=== PATIENT | female | born 1955 | race Caucasian/White ===

== ENCOUNTER 2016-10-26 07:02 | Inpatient (IN) | payer MEDICAID ==
[2016-10-26] VITALS (15 sets, daily range): BP systolic 170–194; BP diastolic 74–92; PULSE 67–89; RESP 20; TEMP 97.9; Ht 160 cm; Wt 84.5 kg
[~2016-10-26] VITALS: Ht 160 cm; Wt 84.5 kg
[2016-10-26] MEDS ORDERED: ALBUTEROL 0.5% (NEB) 2.5 MG/0.5 ML AMP INH STA (07:22)
[2016-10-26] MEDS ORDERED: LEVOFLOXACIN 750MG/D5W (PMX) 150 ML IVPB STA (07:22)
[2016-10-26] MEDS ORDERED: IPRATROPIUM (NEB) 0.5 MG/2.5 ML AMP INH STA (07:22)
[2016-10-26 07:57] LABS: BASOPHILS % 0.2 % (0.0-2.0); EOSINOPHILS # 0.2 10^3/ul (0.0-0.5); EOSINOPHILS % 1.8 % (0.0-7.0); HEMATOCRIT 35.3 % (37.0-47.0); HEMOGLOBIN 11.5 g/dl (12.0-16.0); LYMPHOCYTES # 0.9 10^3/ul (0.8-2.9); MEAN CORPUSCULAR HEMOGLOBIN 30.2 pg (29.0-33.0); MEAN CORPUSCULAR HGB CONC 32.5 g/dl (32.0-37.0); MEAN CORPUSCULAR VOLUME 92.9 fl (82.0-101.0); MEAN PLATELET VOLUME 8.5 fl (7.4-10.4); MONOCYTE # 0.5 10^3/ul (0.3-0.9); MONOCYTES % 4.8 % (0.0-11.0); NEUTROPHIL # 9.6 10^3/ul (1.6-7.5); NEUTROPHILS % 85.2 % (39.0-77.0); PLATELET COUNT 214 10^3/UL (140-440); RED CELL DISTRIBUTION WIDTH 16.4 % (11.5-14.5); UNCORRECTED WBC 11.2 10^3/ul (4.8-10.8); WHITE BLOOD COUNT 11.2 10^3/ul (4.8-10.8)
--- NOTE | 2016-10-26 08:02 | RADRPT ---
PROCEDURE: XR Chest. CLINICAL INDICATION: Dyspnea TECHNIQUE: Single frontal chest x-ray. COMPARISON: None. FINDINGS: Cardiomegaly with mild increased vascular congestion is identified. Dense atelectasis is seen withi n the lung bases. Aortic atherosclerotic vascular calcifications are identified. There is no pneum othorax. The surrounding osseous structures are remarkable for benign chronic senescent changes. IMPRESSION: 1. Cardiomegaly with mild central vascular congestion. 2. Dense atelectasis within the lung bases. 3. Vascular calcifications consistent with atherosclerosis. RPTAT: PP .Washington Kelley MD, Date Time Electronically viewed and signed by .Washington Kelley MD, on 10/26/2016 08:01 .B/
[2016-10-26 08:09] LABS: CONDITION 1; LH ANALYZER COMMENTS 1
[2016-10-26 08:14] LABS: CHLORIDE 101 mmol/L (97-110); INR 1.01; POTASSIUM 5.6 mmol/L (3.5-5.1); PROTIME 13.3 Sec (12.2-14.2); SODIUM 144 mmol/L (135-144)
[2016-10-26 08:16] LABS: CREATININE 8.39 mg/dl (0.44-1.00); PARTIAL THROMBOPLASTIN TIME 33.9 Sec (25.0-35.0)
[2016-10-26 08:17] LABS: ALANINE AMINOTRANSFERASE 16 IU/L (13-69); ALBUMIN/GLOBULIN RATIO 1.17; ALKALINE PHOSPHATASE 83 IU/L (42-121); ANION GAP 24 (8-16); ASPARTATE AMINO TRANSFERASE 13 IU/L (15-46); BLOOD UREA NITROGEN 64 mg/dl (7-20); CARBON DIOXIDE 25 mmol/L (21-31); GLUCOSE 153 mg/dl (70-220); TOTAL PROTEIN 7.4 g/dl (6.1-8.1)
[2016-10-26 08:18] LABS: CALCIUM 7.4 mg/dl (8.4-10.2)
[2016-10-26 08:29] LABS: TROPONIN-I < 0.012 ng/ml (0.00-0.12)
[2016-10-26] MEDS ORDERED: FURO80TA3 PO (08:37)
[2016-10-26] MEDS ORDERED: AMLO5TAB4 PO (08:37)
[2016-10-26] MEDS ORDERED: ATEN50TA PO (08:38)
[2016-10-26] MEDS ORDERED: BENA40TA41 PO (08:39)
[2016-10-26] MEDS ORDERED: LOSA50TA6 PO (08:39)
[2016-10-26] MEDS ORDERED: TRAM-40 PO (08:39)
--- NOTE | 2016-10-26 08:46 | ERA ---
ER Documentation Chief Complaint Date/Time DATE: 10/26/16 TIME: 0710 Chief Complaint cough congestion no fever onset 2 days. bilat flank pain no dialysis today HPI 61-year-old female presents to the emergency department complaining of cough congestion. Patient states over the last 2 days she has been increasingly short of breath with a cough productive of sputum. She reports no hemoptysis. She had no chest pain. She then became increasingly dyspneic despite her usual dialysis routine. She reported no PND or orthopnea. She reported no palpitations or other cardiac symptoms. Upon arrival she expressed discomfort of an 8/10 which was nonspecific in nature. Patient states she has had a questionable fever associated with her symptoms. ROS All systems reviewed and are negative except as per history of present illness. Medications Home Meds Reported Medications Benazepril Hcl* (Benazepril Hcl*) 40 Mg Tablet, 40 MG PO DAILY, #30 TAB 10/26/16 Losartan Potassium* (Losartan Potassium*) 50 Mg Tablet, 50 MG PO DAILY, TAB 10/26/16 Tramadol Hcl* (Ultram*) 50 Mg Tablet, 50 MG PO BID Y for PAIN, TAB 10/26/16 Atenolol* (Atenolol*) 50 Mg Tablet, 50 MG PO BID, #60 TAB 10/26/16 Furosemide* (Furosemide*) 80 Mg Tablet, 80 MG PO BID, #60 TAB 10/26/16 Amlodipine Besylate* (Norvasc*) 5 Mg Tablet, 5 MG PO BID, TAB 10/26/16 Allergies Allergies: Coded Allergies: acetaminophen (Verified Allergy, Unknown, 10/26/16) FmHx Noncontributory for chief complaint Physical Exam Vitals Vital Signs Date Time Temp Pulse Resp B/P Pulse Ox O2 Delivery O2 Flow Rate FiO2 10/26/16 07:41 78 26 98 Nasal Cannula 4.0 10/26/16 07:15 Nasal Cannula 4 10/26/16 07:05 98.2 81 26 141/65 88 Physical Exam GENERAL: Patient is a plethoric elderly appearing female in mild distress HEENT: Pupils equal, round, and reactive to light. EOMI. There is no scleral icterus. NECK: C-spine is soft and supple, there is no meningismus. There is no cervical lymphadenopathy. No JVD LUNGS: Wheezes and occasional rales bilaterally. Increased work of breathing HEART: Regular rate and rhythm, no murmurs, clicks, rubs or gallops. ABDOMEN: Soft, non-tender, non-distended. There are bowel sounds in all four quadrants. No rebound or guarding. EXTREMITIES: There is no peripheral cyanosis or edema. No focal swelling or erythema. NEURO: The patient moves all four extremities with 5/5 strength. Cranial nerves II - XII are intact. Normal gait. Alert and oriented SKIN: There is no apparent rash or petechiae. Left upper extremity dialysis graft is noted without evidence of infection HEME/LYMPHATIC: There is no evidence of excessive bruising or lymphedema. PSYCHIATRIC: The patient does not appear anxious or depressed. Result Diagram: 10/26/16 0730 10/26/1630 Results 24 hrs Laboratory Tests Test 10/26/16 07:30 Activated Partial Thromboplast Time 33.9Sec Alanine Aminotransferase (ALT/SGPT) 16IU/L Albumin 4.0g/dl Albumin/Globulin Ratio 1.17 Alkaline Phosphatase 83IU/L Anion Gap 24 Aspartate Amino Transf (AST/SGOT) 13IU/L Basophils # 0.010^3/ul Basophils % 0.2% Blood Morphology Comment Blood Urea Nitrogen 64mg/dl Calcium Level 7.4mg/dl Carbon Dioxide Level 25mmol/L Chloride Level 101mmol/L Creatinine 8.39mg/dl Direct Bilirubin 0.00mg/dl Eosinophils # 0.210^3/ul Eosinophils % 1.8% Globulin 3.40g/dl Glucose Level 153mg/dl Hematocrit 35.3% Hemoglobin 11.5g/dl INR International Normalized Ratio 1.01 Indirect Bilirubin 0.0mg/dl Lactic Acid Level 1.0mmol/L Lymphocytes # 0.910^3/ul Lymphocytes % 8.0% Mean Corpuscular Hemoglobin 30.2pg Mean Corpuscular Hemoglobin Concent 32.5g/dl Mean Corpuscular Volume 92.9fl Mean Platelet Volume 8.5fl Monocytes # 0.510^3/ul Monocytes % 4.8% Neutrophils # 9.610^3/ul Neutrophils % 85.2% Nucleated Red Blood Cells # 0.010^3/ul Nucleated Red Blood Cells % 0.0/100WBC Platelet Count 87145^3/UL Potassium Level 5.6mmol/L Prothrombin Time 13.3Sec Prothrombin Time Ratio 1.0 Red Blood Count 3.8010^6/ul Red Cell Distribution Width 16.4% Sodium Level 144mmol/L Total Bilirubin 0.0mg/dl Total Protein 7.4g/dl Troponin I < 0.012ng/ml White Blood Count 11.210^3/ul Current Medications Medications (Trade) Dose Ordered Sig/Markos Route PRN Reason Start Time Stop Time Status Last Admin Dose Admin Albuterol (Proventil 0.5% (Neb)) 5 mg ONCE STAT INH 10/26/16 07:22 10/26/16 07:23 DC 10/26/16 07:40 Ipratropium [place] 0.5 mg 0.5 mg ONCE STAT INH 10/26/16 07:22 10/26/16 07:23 DC 10/26/16 07:40 Levofloxacin/ Dextrose (Levaquin 750 Mg/ D5W 150 ml (Pmx)) 150 ml @ 100 mls/hr ONCE STAT IVPB 10/26/16 07:22 10/26/16 08:51 10/26/16 07:48 Procedures/MDM Patient was taken to a room, seen and evaluated. Comfort measures were initiated. Patient's initial hypoxemia was noted and patient required nasal cannula oxygen to bring saturations up to the 90s. Work of breathing improved Diagnostic tests were ordered and reviewed. 3 LEAD RHYTHM STRIP: Normal sinus rhythm without ectopy EK lead EKG reviewed by myself: Normal Sinus Rhythm Normal [place] and intervals No ST elevation, depression, or T wave inversion Impression: Normal EKG RADIOLOGY: reviewed with the radiologist CONSULTATION: hospitalist was notified for admission REEVALUATION: With above intervention, patient's work of breathing improved and she seemed to be much more comfortable. She had no further hypoxemia. MEDICAL DECISION MAKING: Patient presents for shortness of breath. Differential diagnosis entertained included asthma, pneumonia, other cardiac and pulmonary concerns. After reviewing the patient's diagnostic tests and clinical presentation, patient appears to have a combination of pulmonary edema likely secondary to her renal failure what appears to be likely a bronchitis versus early pneumonia. At this time, patient has required antibiotics to cover for pneumonia and will require dialysis today. Fortunately, patient's potassium seems to be relatively well controlled and she has no EKG changes consistent with hyperkalemia. As per my conversations with the hospitalist, they will be obtaining nephrology consultation is appropriate. Patient is remained hemo-dynamically stable and is appropriate for inpatient bed at this time CRITICAL CARE: Time:>35 minutes Patient has a significant chance of clinical deterioration especially in light of her pulmonary concerns and hypoxemia Treatments/Evaluations: Close monitoring and treatment of unstable vital signs, respiratory status, likely concerns etc. Departure Diagnosis: Primary Impression: Hypoxemia Additional Impressions: Respiratory failure Pneumonia Renal failure ALEXA MANSFIELD Oct 26, 2016 08:46
[2016-10-26 08:53] LABS: AADO2 Arterial 81.1 mmHg (7.0-24.0); Allen Test ACCEPTAB; Arterial Base Excess -4.2 mmol/L (-3.0-3); Arterial COHb 0.7 % (0.0-3.0); Arterial Fraction of Oxyhgb 94.8 % (93.0-99.0); Arterial HCO3 22.8 mmol/L (22.0-26.0); Arterial MetHb 0.3 % (0.0-1.5); Arterial Total Hemglobin 11.5 g/dl (12.0-18.0); MODE NASAL CANNULA
[2016-10-26] MEDS ORDERED: DOCUSATE SODIUM 100 MG CAP PO PRN (10:30)
[2016-10-26] MEDS ORDERED: NACL 0.9% 3 ML SYG IV SCH (10:30)
[2016-10-26] MEDS ORDERED: morphine 2 MG INJ IV PRN (10:30)
[2016-10-26] MEDS ORDERED: hydrALAzine 20 MG INJ IV PRN (10:30)
[2016-10-26] MEDS ORDERED: VANCOMYCIN IV PER PHARMACY XX SCH (10:30)
[2016-10-26] MEDS ORDERED: HYDROCODONE/APAP (5/325) TAB PO PRN (10:30)
[2016-10-26] MEDS ORDERED: MAGNESIUM HYDROXIDE 30ML CUP PO PRN (10:30)
[2016-10-26] MEDS ORDERED: ACETAMINOPHEN 325 MG TAB PO PRN (10:30)
[2016-10-26] MEDS ORDERED: LORAZEPAM 2 MG INJ IV PRN (10:30)
[2016-10-26] MEDS ORDERED: ONDANSETRON 4 MG INJ IV PRN (10:30)
[2016-10-26] MEDS ORDERED: ALBUTEROL/IPRATROPIUM (NEB) 3 ML AMP HHN PRN (10:30)
[2016-10-26] MEDS ORDERED: NITROGLYCERIN (SL) 0.4 MG TAB SL PRN (10:30)
[2016-10-26] MEDS ORDERED: NA PHOSPHATE/BIPHOS 133 ML ENEMA PR PRN (10:30)
[2016-10-26] MEDS ORDERED: PIPERACILLIN IVPB SCH (12:00)
[2016-10-26] MEDS ORDERED: PIPER-TAZO 3.375 GM IV (PMX) 100 ML IVPB SCH (12:00)
[2016-10-26] MEDS ORDERED: TAZOBACTAM IVPB SCH (12:00)
[2016-10-26] MEDS: PIPER-TAZO 2.25 GM (PMX) 50 ML IVPB SCH ×2 (12:08→20:06)
--- NOTE | 2016-10-26 12:26 | PREOPHP ---
DATE OF ADMISSION: 10/26/2016 Thank you, Dr. Hogan, for asking me to participate in the medical management of this patient. REASON FOR CONSULTATION: End-stage renal disease. HISTORY OF PRESENT ILLNESS: This 61-year-old female was admitted to the emergency room because of 2 days of cough and shortness of breath. The patient says that she has been having increasing shortn ess of breath with a productive cough for 2 days. She denies any chest pain. The patient does have a history of asthma. She does have end-stage renal disease and has been on maintenance hemodialysi s for almost 2 years, having started in November 2014. She does have a left upper arm AV fistula which was created for dialysis. The patient is usually dialyzed Saturday, Saturday, Saturday and was last d ialyzed 2 days ago. Today being Saturday, she is due for dialysis. The patient has a long history of diabetes mellitus and I suspect has end-stage renal disease due to diabetic nephropathy. PAST MEDICAL HISTORY: Remarkable for CVA, hypertension, hyperlipidemia, diabetes mellitus, peripher al neuropathy. PAST SURGICAL HISTORY: Cataract extraction, left arm AV fistula, cholecystectomy, blood clot remove d from her left neck that was done in [place]. MEDICATIONS: Includes the followin. Amlodipine 5 mg twice a day. 2. Atenolol 50 mg twice a day. 3. Benazepril 40 mg a day. 4. Losartan 50 mg a day. 5. Tramadol 50 mg p.r.n. pain. 5. Furosemide 80 mg twice a day. ALLERGIES: SHE HAS AN ALLERGY TO ACETAMINOPHEN. PHYSICAL EXAMINATION: GENERAL: At this time reveals a well-developed female in no apparent distress. VITAL SIGNS: Temperature 97.9, pulse is 78, respirations 20, blood pressure 152/66, O2 saturation 9 9% on 4 liter nasal cannula. HEENT: Head normocephalic. EYES: Extraocular muscles intact. NOSE AND MOUTH: Normal. NECK: Supple. No neck vein distention. LUNGS: She has bilateral coarse expiratory wheezes. HEART: Regular rhythm. No murmurs, gallops or rubs. ABDOMEN: Soft, nontender, no masses or megaly. EXTREMITIES: No peripheral edema. She has a left upper arm AV fistula which has a good thrill and bruit. LABORATORY DATA: Done in the emergency room, sodium 144, potassium 5.6, chloride 101, CO2 of 25, BU N 64, creatinine 8.39, calcium 7.4. White blood count 11,200, hemoglobin 11.5, hematocrit 35.3. IMPRESSION: This patient presents now with a history of end-stage renal disease and is dialysis dep endent. She is due for her routine hemodialysis treatment today. She came in today to the emergenc y room with cough and shortness of breath. She probably has an acute bronchitis and/or acute exacer bation of her asthma. PLAN: 1. Order hemodialysis for today as soon as the patient is able to be transferred to a hospital room . 2. Resume routine medications. I will discontinue one of her angiotensin receptor blockers. 3. Monitor her chest x-ray for pulmonary vascular changes. 4. I will follow the patient along with you. Dictated By: WILVER DAVIES MD, ND/DENISE Conf#: [id number] DID#: [id number] CC: FRANCESCO HOGAN;*End*
--- NOTE | 2016-10-26 12:36 | RADRPT ---
Echocardiogram Report Patient Name: MAX CUEVAS Gender: Female Date: 1955 Study Date: 26-Oct-2016 Optical Glass Inspector: Diana Fitzpatrick RDCS Location: Ref. Physician: FRANCESCO HOGAN Quality: Technically Difficult Study Procedures: Transthoracic echocardiogram with complete 2D, M-Mode, and doppler examination. Indications: Shortness of breath. 2D/M Mode Doppler Measurement Value Normal Ranges Measurement Value Normal Ranges LVIDd 2D 5.3 3.5 - 5.6 cm AV Peak Reji 2.4 m/sec LVIDs 2D 2.7 2.1 - 4.1 cm AV Peak PG 23.1 mmHg LVPWd 2D 0.8 0.6 - 1.1 cm LVOT Peak Reji 1.1 m/sec IVSd 2D 0.9 0.6 - 1.1 cm LVOT Peak PG 5.3 mmHg AoR Diam 2D 2.3 2.0 - 3.7 cm MV E Peak Reji 1.3 m/sec EDV 2D 135.8 cm3 MV A Peak Reji 1.1 m/sec ESV 2D 19.0 cm3 MV E/A 1.1 LA Dimen 2D 4.3 2.3 - 4.0 cm MV Decel Time 191 msec MV Decel [place] 7 MV E/A 1.1 TR Peak Reji 2.7 m/sec TR Peak PG 28.7 mmHg RVSP 37.0 mmHg Findings Left Ventricle: Mild concentric left ventricular hypertrophy. Ejection fraction is visually estimated at 65 %. Tissue Doppler/Mitral Doppler indices are within normal limits. Right Ventricle: Normal right ventricular size. Normal right ventricular systolic function. Left Atrium: There is mild enlargement of left atrium. Right Atrium: There is mild enlargement of right atrium. Mitral Valve: Mitral valve leaflets appear mildly thickened. Moderate mitral annular calcification. Mild mitral valve regurgitation. Aortic Valve: Mild aortic stenosis. Aortic valve Max velocity 2.50 m/sec. Max PG 25.00 mmHg. Aortic cusps appear moderately calcified. Tricuspid Valve: Estimated peak PA systolic pressure 37 mmHg. There is mild tricuspid regurgitation. Pulmonic Valve: There is trace pulmonic regurgitation. Pericardium: Normal pericardium with no significant pericardial effusion. Aorta: Normal aortic root. IVC: Dilated IVC with respiratory collapse consistent with elevated right atrial pressure. Conclusions Mild concentric left ventricular hypertrophy. Ejection fraction is visually estimated at 65 %. Tissue Doppler/Mitral Doppler indices are within normal limits. Mild aortic stenosis. Aortic valve Max velocity 2.5 m/sec. Max PG 25 mmHg. Estimated peak PA systolic pressure 37 mmHg based on RA pressure of 8 mmHg. Electronically Signed By: Oscar Lorenzo 26-Oct-2016 12:34:57 -0800 Patient Name: MAX CUEVAS Study Date: 26-Oct-[id number]
[2016-10-26] MEDS ORDERED: VANCOMYCIN 1.5 GM in SOD CHLORIDE 0.9% 250 ML IVPB SCH (13:00)
[2016-10-26 14:58] LABS: AADO2 Arterial 137.8 mmHg (7.0-24.0); Allen Test ACCEPTAB; Arterial Base Excess -3.2 mmol/L (-3.0-3); Arterial COHb 0.3 % (0.0-3.0); Arterial Fraction of Oxyhgb 94.6 % (93.0-99.0); Arterial HCO3 23.9 mmol/L (22.0-26.0); Arterial MetHb 0.1 % (0.0-1.5); Arterial Total Hemglobin 11.9 g/dl (12.0-18.0); MODE HFNC
--- NOTE | 2016-10-26 15:59 | HP ---
DATE OF ADMISSION: 10/26/2016 CHIEF COMPLAINT: Shortness of breath. HISTORY OF PRESENT ILLNESS: A 61-year-old female with past medical history based on records of end- stage renal disease on dialysis, hypertension, type 2 diabetes, and asthma who came in with shortnes s of breath. She apparently receives dialysis every Saturday, Saturday, and Saturday and received dial ysis 2 days ago, on Saturday, and has been having shortness of breath for the last 2 days. Most of th e information was obtained from the ER documentation as the patient is presently somewhat lethargic and on high flow oxygen. Per records, she has been on dialysis for the last 2 years. She has a lef t upper arm AV fistula for access. The patient denied any homolysis. No chest pain, no orthopnea. No fevers or chills. When she came into the ER today, she was found with low oxygen saturation of 86% on room air and was given O2 supplementation. She also had an ABG performed that showed a pH of 7.27, pCO2 of 50.3, PaO2 of 95.5, and bicarbonate of 22.8. PAST MEDICAL HISTORY: As stated above. ALLERGIES: ACETAMINOPHEN. MEDICATIONS AT HOME: 1. Norvasc 5 mg b.i.d. 2. Atenolol 50 mg b.i.d. 3. Benazepril 40 mg daily. 4. Losartan 50 mg daily. 5. Ultram 50 mg b.i.d. p.r.n. 6. Lasix 80 mg b.i.d. PAST SURGICAL HISTORY: Again, AV fistula placement in the past. FAMILY HISTORY: Noncontributory. SOCIAL HISTORY: Unknown. PHYSICAL EXAMINATION: VITAL SIGNS: T-max 98.2, pulse 70 to 81, respirations 26, blood pressure 121/65, saturating at 88% to 98%, now on high flow oxygen. GENERAL: The patient appears slightly lethargic, opens eyes. HEENT: Pupils equal, round, react to light. Extraocular muscles intact. NECK: Supple, no thyromegaly. LUNGS: Decreased breath sounds, positive wheezes in bilateral bases. CARDIOVASCULAR: S1, S2 heard. No rubs, gallops. ABDOMEN: Soft, nontender, nondistended. Normal bowel sounds. No rebound or guarding. MUSCULOSKELETAL: No lower extremity edema bilaterally. NEUROLOGIC: No focal deficits. LABORATORIES: WBC 11.2, hemoglobin 11.5, hematocrit 35.3, platelets 214. Sodium 144, potassium 5.6 , chloride 101, CO2 of 25, BUN 64, creatinine 8.39, glucose 153. IMAGING: She had a chest x-ray that shows cardiomegaly with mild central vascular congestion, dense atelectasis at the lung bases. ASSESSMENT AND PLAN: A 61-year-old female who presents with hypoxia and shortness of breath, possib ly secondary to combination of pneumonia. 1. Shortness of breath. Again, chest x-ray shows pulmonary infiltrates. ABG shows some slight hyp ercapnic respiratory failure, so we will put her on BiPAP for now, check a TSH, A1c, and lipid panel as well, put her on broad spectrum antibiotics, and consider getting pulmonary consultation. The p atient may need a CT of the chest as well for further evaluation. 2. Essential hypertension. Blood pressure is stable. Continue home blood pressure medicines as we ll as hydralazine p.r.n. 3. End-stage renal disease on hemodialysis. We will get a renal consult. The patient may need efrain lysis today. Follow up their recommendations as well. 4. Type 2 diabetes. We will check an A1c. We will put her on sliding scale insulin as well. 5. GI prophylaxis. We will put her on PPI. 6. Deep venous thrombosis prophylaxis. Heparin subcutaneously. We will also get PT consult as javi gutierrez and OT consult. Dictated By: FRANCESCO JENSEN/DENISE Conf#: [id number] DID#: [id number]
[2016-10-26] MEDS: HEPARIN 5,000 UNIT/0.5 ML SYG SC SCH (21:00)
[2016-10-26] MEDS: FUROSEMIDE 40 MG TAB PO SCH (21:42)
[2016-10-26] MEDS: AMLODIPINE 5 MG TAB PO SCH (22:23)
[2016-10-26] MEDS: ATENOLOL 50 MG TAB PO SCH (22:23)
[2016-10-27] VITALS (13 sets, daily range): BP systolic 122–153; BP diastolic 60–98; PULSE 65–86; RESP 16–20
[2016-10-27] MEDS: PANTOPRAZOLE 40 MG INJ IV SCH (06:18)
[2016-10-27] MEDS: PIPER-TAZO 2.25 GM (PMX) 50 ML IVPB SCH ×2 (06:18→16:36)
[2016-10-27 07:23] LABS: CHOL/HDL RATIO 4.3 RATIO
[2016-10-27 07:34] LABS: BASOPHILS % 0.3 % (0.0-2.0); EOSINOPHILS # 0.1 10^3/ul (0.0-0.5); EOSINOPHILS % 1.2 % (0.0-7.0); HEMATOCRIT 34.2 % (37.0-47.0); HEMOGLOBIN 11.2 g/dl (12.0-16.0); LYMPHOCYTES # 1.1 10^3/ul (0.8-2.9); LYMPHOCYTES % 11.3 % (15.0-51.0); MEAN CORPUSCULAR HEMOGLOBIN 30.5 pg (29.0-33.0); MEAN CORPUSCULAR HGB CONC 32.9 g/dl (32.0-37.0); MEAN CORPUSCULAR VOLUME 92.8 fl (82.0-101.0); MEAN PLATELET VOLUME 8.7 fl (7.4-10.4); MONOCYTE # 0.5 10^3/ul (0.3-0.9); MONOCYTES % 4.9 % (0.0-11.0); NEUTROPHILS % 82.3 % (39.0-77.0); PLATELET COUNT 218 10^3/UL (140-440); RED BLOOD COUNT 3.68 10^6/ul (4.20-5.40); RED CELL DISTRIBUTION WIDTH 16.5 % (11.5-14.5); UNCORRECTED WBC 9.7 10^3/ul (4.8-10.8); WHITE BLOOD COUNT 9.7 10^3/ul (4.8-10.8)
[2016-10-27 07:38] LABS: CONDITION 1; LH ANALYZER COMMENTS 1
[2016-10-27 07:50] LABS: THYROID STIMULATING HORMONE 1.46 MIU/L (0.465-4.680)
[2016-10-27 08:54] LABS: CREATININE 5.29 mg/dl (0.44-1.00)
[2016-10-27 08:55] LABS: CALCIUM 8.3 mg/dl (8.4-10.2); MAGNESIUM 2.2 mg/dl (1.7-2.5); PHOSPHORUS 5.5 mg/dl (2.5-4.9)
[2016-10-27] MEDS ORDERED: LOSARTAN 50 MG TAB PO SCH (09:00)
[2016-10-27] MEDS: ATENOLOL 50 MG TAB PO SCH ×2 (09:28→20:58)
[2016-10-27] MEDS: AMLODIPINE 5 MG TAB PO SCH ×2 (09:28→20:59)
[2016-10-27] MEDS: BENAZEPRIL 40 MG TAB PO SCH (09:28)
[2016-10-27] MEDS: FUROSEMIDE 40 MG TAB PO SCH ×2 (09:29→20:58)
[2016-10-27] MEDS: HEPARIN 5,000 UNIT/0.5 ML SYG SC SCH ×2 (09:30→21:02)
--- NOTE | 2016-10-27 10:56 | CONS ---
Date/Time of Note Date/Time of Note DATE: 10/27/16 TIME: 10:54 Assessment/Plan Assessment/Plan Additional Assessment/Plan 1. CKD, no need for hd today, will eval for same tomm 2. Bronchitis and ? mild chf, improving 3. Sciatica right leg Consultation Date/Type/Reason Admit Date/Time Oct 26, 2016 at 08:46 Initial Consult Date Detailed Summary Respiratory: No shortness of breath Cardiovascular: No chest pain Gastrointestinal: no complaints Musculoskeletal: back pain (and right leg pain) Exam/Review of Systems Vital Signs Vitals Vital Signs Date Time Temp Pulse Resp B/P Pulse Ox O2 Delivery O2 Flow Rate FiO2 10/27/16 08:47 74 10/27/16 08:34 Nasal Cannula 4.0 10/27/16 05:00 98.5 16 153/98 95 10/26/16 21:28 40 Intake and Output 10/26/16 10/26/16 10/27/16 15:00 23:00 07:00 Intake Total 200 ml 300 ml 100 ml Output Total 3800 ml Balance 200 ml -3500 ml 100 ml Exam Neck: No jvd Respiratory: clear to auscultation Cardiovascular: regular rate and rhythm Gastrointestinal: soft Extremities: No edema (adn no calf tend) Results Result Diagram: 10/27/16 0639 10/27/16 0639 Results 24 hrs Laboratory Tests Test 10/26/16 14:12 10/27/16 06:39 Arterial Blood HCO3 23.9 Arterial Blood Base Excess -3.2 L Arterial Blood Oxygen Saturation 95.0 Umesh Test ACCEPTAB Arterial Blood Gas Puncture Site Right Radial Arterial Blood Carboxyhemoglobin 0.3 Arterial Blood Date Drawn 10/26/2016 2:45:14 PM Arterial Blood Methemoglobin 0.1 Arterial Blood pCO2 (Temp correct) 51.9 H Arterial Blood pH (Temp corrected) 7.281 *L Arterial Blood pO2 (Temp corrected) 87.7 Blood Gas A-a O2 Differential 137.8 H Blood Gas Critical Value Read Back DR ADHIKARI Blood Gas Modality NC Blood Gas Notified Time 10/26/2016 2:58:11 PM Blood Gas Notified Whom JLD Blood Gas Specimen Source Blood arterial Blood Gas Temperature 37.0 FiO2 40.0 Oxyhemoglobin Percent 94.6 Total Hemoglobin 11.9 L Anion Gap 23 H Basophils # 0.0 Basophils % 0.3 Blood Morphology Comment Blood Urea Nitrogen 36 #H Calcium Level 8.3 L Carbon Dioxide Level 26 Chloride Level 101 Cholesterol Level 131 Cholesterol/HDL Ratio 4.3 Creatinine 5.29 #H Eosinophils # 0.1 Eosinophils % 1.2 Glucose Level 120 HDL Cholesterol 30 L Hematocrit 34.2 L Hemoglobin 11.2 L Hemoglobin A1c 6.4 H LDL Cholesterol, Calculated 50 Lymphocytes # 1.1 Lymphocytes % 11.3 L Magnesium Level 2.2 Mean Corpuscular Hemoglobin 30.5 Mean Corpuscular Hemoglobin Concent 32.9 Mean Corpuscular Volume 92.8 Mean Platelet Volume 8.7 Monocytes # 0.5 Monocytes % 4.9 Neutrophils # 8.0 H Neutrophils % 82.3 H Nucleated Red Blood Cells # 0.0 Nucleated Red Blood Cells % 0.0 Phosphorus Level 5.5 H Platelet Count 218 Potassium Level 5.0 Red Blood Count 3.68 L Red Cell Distribution Width 16.5 H Sodium Level 145 H Thyroid Stimulating Hormone (TSH) 1.460 Triglycerides Level 257 H White Blood Count 9.7 Medications Medications Current Medications Ondansetron HCl (Zofran Inj) 4 mg Q6H PRN IV NAUSEA AND/OR VOMITING; Start at 10:30 Morphine Sulfate (morphine) 2 mg Q4H PRN IV SEVERE PAIN LEVEL 7-10; Start 10/26 at 10:30 Docusate Sodium (Colace) 100 mg Q12H PRN PO CONSTIPATION; Start 10/26/16 at 10: 30 Magnesium Hydroxide (Milk Of Mag) 30 ml Q24H PRN PO CONSTIPATION; Start at 10:30 Heparin Sodium (Porcine) (Heparin (5000 Units/0.5 ml)) 5,000 unit Q12 SC Last administered on 10/27/16 09:30; Admin Dose 5,000 UNIT; Start 10/26/16 at 21:00 Lorazepam (Ativan) 0.5 mg Q6H PRN IV ANXIETY Last administered on 10/26/16 12: 29; Admin Dose 0.5 MG; Start 10/26/16 at 10:30 Vancomycin HCl (Vanco Iv Per Pharmacy) VANCOMYCIN PER PHARMACY NOTE XX ; Start 10/26/16 at 10:30 Hydralazine HCl (Apresoline) 10 mg Q6H PRN IV ELEVATED BLOOD PRESSURE; Start at 10:30 Clonidine (Catapres) 0.1 mg Q6H PRN PO ELEVATED BLOOD PRESSURE; Start 10/26/16 at 10:30 Nitroglycerin (Nitroglycerin (Sl Tab) 0.4 Mg) 1 tab Q5M PRN SL ANGINA; Start at 10:30 Amlodipine Besylate (Norvasc) 5 mg BID PO Last administered on 10/27/16 09:28 ; Admin Dose 5 MG; Start 10/26/16 at 21:00 Atenolol (Tenormin) 50 mg BID PO Last administered on 10/27/16 09:28; Admin Dose 50 MG; Start 10/26/16 at 21:00 Benazepril HCl (Lotensin) 40 mg DAILY PO Last administered on 10/27/16 09:28; Admin Dose 40 MG; Start 10/27/16 at 09:00 Furosemide (Lasix) 80 mg BID PO Last administered on 10/27/16 09:29; Admin Dose 80 MG; Start 10/26/16 at 21:00 Tramadol HCl 50 mg 50 mg Q12H PRN PO PAIN; Start 10/26/16 at 10:30 Piperacillin Sod/ Tazobactam Sod (Zosyn 2.25gm/ 50ml (Pmx)) 50 ml @ 100 mls/hr Q8 IVPB Last administered on 10/27/16 06:18; Admin Dose 100 MLS/HR; Start at 12:00 Pantoprazole (Protonix Iv) 40 mg DAILY@06 IV Last administered on 10/27/16 06: 18; Admin Dose 40 MG; Start 10/27/16 at 06:00 Influenza Virus Vaccine (Fluzone) 0.5 ml ONCE ONCE IM* ; Start 10/31/16 at 09:00 ; Stop 10/31/16 at 09:01 FLORENCIA LUNA MD Oct 27, 2016 10:56
--- NOTE | 2016-10-27 11:24 | PN ---
Date/Time of Note Date/Time of Note DATE: 10/27/16 TIME: 11:20 Assessment/Plan VTE Prophylaxis VTE Prophylaxis Intervention: heparin Lines/Catheters IV Catheter Type (from [facility]): Saline Lock Urinary Cath still in place: No Assessment/Plan Chief Complaint/Hosp Course ASSESSMENT AND PLAN: 61-year-old female who presents with hypoxia and shortness of breath, possibly secondary to combination of pneumonia. 1. Shortness of breath - improved. Again, chest x-ray shows pulmonary infiltrates. Admitting ABG shows some slight hypercapnic respiratory failure - continue BiPAP prn - continue broad spectrum antibiotics, - f/u pulmonary consultation. The patient may need a CT of the chest as well for further evaluation. 2. Essential hypertension. Blood pressure is stable. - Continue home blood pressure medicines as well as hydralazine p.r.n. 3. End-stage renal disease on hemodialysis. - f/u renal consult rec's 4. Type 2 diabetes - f/u A1c, continue sliding scale insulin as well. 5. GI prophylaxis - PPI. 6. Deep venous thrombosis prophylaxis. Heparin subcutaneously. F/u PT consult as well and OT consult. Problems: Subjective 24 Hr Interval Summary Free Text/Dictation Less SOB now, seen by renal team today. Exam/Review of Systems Vital Signs Vitals Vital Signs Date Time Temp Pulse Resp B/P Pulse Ox O2 Delivery O2 Flow Rate FiO2 10/27/16 08:47 74 10/27/16 08:34 Nasal Cannula 4.0 10/27/16 05:00 98.5 16 153/98 95 10/26/16 21:28 40 Intake and Output 10/26/16 10/26/16 10/27/16 15:00 23:00 07:00 Intake Total 200 ml 300 ml 100 ml Output Total 3800 ml Balance 200 ml -3500 ml 100 ml Exam GENERAL: The patient appears more alert. HEENT: Pupils equal, round, react to light. Extraocular muscles intact. NECK: Supple, no thyromegaly. LUNGS: less decreased breath sounds, less wheezes in bilateral bases. CARDIOVASCULAR: S1, S2 heard. No rubs, gallops. ABDOMEN: Soft, nontender, nondistended. Normal bowel sounds. No rebound or guarding. MUSCULOSKELETAL: No lower extremity edema bilaterally. NEUROLOGIC: No focal deficits. Results Result Diagram: 10/27/1639 10/27/16638 Results 24 hrs Laboratory Tests Test 10/26/16 14:12 10/27/16 06:39 Arterial Blood HCO3 23.9 Arterial Blood Base Excess -3.2 L Arterial Blood Oxygen Saturation 95.0 Umesh Test ACCEPTAB Arterial Blood Gas Puncture Site Right Radial Arterial Blood Carboxyhemoglobin 0.3 Arterial Blood Date Drawn 10/26/2016 2:45:14 PM Arterial Blood Methemoglobin 0.1 Arterial Blood pCO2 (Temp correct) 51.9 H Arterial Blood pH (Temp corrected) 7.281 *L Arterial Blood pO2 (Temp corrected) 87.7 Blood Gas A-a O2 Differential 137.8 H Blood Gas Critical Value Read Back DR ADHIKARI Blood Gas Modality HFNC Blood Gas Notified Time 10/26/2016 2:58:11 PM Blood Gas Notified Whom JLD Blood Gas Specimen Source Blood arterial Blood Gas Temperature 37.0 FiO2 40.0 Oxyhemoglobin Percent 94.6 Total Hemoglobin 11.9 L Anion Gap 23 H Basophils # 0.0 Basophils % 0.3 Blood Morphology Comment Blood Urea Nitrogen 36 #H Calcium Level 8.3 L Carbon Dioxide Level 26 Chloride Level 101 Cholesterol Level 131 Cholesterol/HDL Ratio 4.3 Creatinine 5.29 #H Eosinophils # 0.1 Eosinophils % 1.2 Glucose Level 120 HDL Cholesterol 30 L Hematocrit 34.2 L Hemoglobin 11.2 L Hemoglobin A1c 6.4 H LDL Cholesterol, Calculated 50 Lymphocytes # 1.1 Lymphocytes % 11.3 L Magnesium Level 2.2 Mean Corpuscular Hemoglobin 30.5 Mean Corpuscular Hemoglobin Concent 32.9 Mean Corpuscular Volume 92.8 Mean Platelet Volume 8.7 Monocytes # 0.5 Monocytes % 4.9 Neutrophils # 8.0 H Neutrophils % 82.3 H Nucleated Red Blood Cells # 0.0 Nucleated Red Blood Cells % 0.0 Phosphorus Level 5.5 H Platelet Count 218 Potassium Level 5.0 Red Blood Count 3.68 L Red Cell Distribution Width 16.5 H Sodium Level 145 H Thyroid Stimulating Hormone (TSH) 1.460 Triglycerides Level 257 H White Blood Count 9.7 Medications Medications Current Medications Ondansetron HCl (Zofran Inj) 4 mg Q6H PRN IV NAUSEA AND/OR VOMITING; Start at 10:30 Morphine Sulfate (morphine) 2 mg Q4H PRN IV SEVERE PAIN LEVEL 7-10; Start 10/26 at 10:30 Docusate Sodium (Colace) 100 mg Q12H PRN PO CONSTIPATION; Start 10/26/16 at 10: 30 Magnesium Hydroxide (Milk Of Mag) 30 ml Q24H PRN PO CONSTIPATION; Start at 10:30 Heparin Sodium (Porcine) (Heparin (5000 Units/0.5 ml)) 5,000 unit Q12 SC Last administered on 10/27/16 09:30; Admin Dose 5,000 UNIT; Start 10/26/16 at 21:00 Lorazepam (Ativan) 0.5 mg Q6H PRN IV ANXIETY Last administered on 10/26/16 12: 29; Admin Dose 0.5 MG; Start 10/26/16 at 10:30 Vancomycin HCl (Vanco Iv Per Pharmacy) VANCOMYCIN PER PHARMACY NOTE XX ; Start 10/26/16 at 10:30 Hydralazine HCl (Apresoline) 10 mg Q6H PRN IV ELEVATED BLOOD PRESSURE; Start at 10:30 Clonidine (Catapres) 0.1 mg Q6H PRN PO ELEVATED BLOOD PRESSURE; Start 10/26/16 at 10:30 Nitroglycerin (Nitroglycerin (Sl Tab) 0.4 Mg) 1 tab Q5M PRN SL ANGINA; Start at 10:30 Amlodipine Besylate (Norvasc) 5 mg BID PO Last administered on 10/27/16 09:28 ; Admin Dose 5 MG; Start 10/26/16 at 21:00 Atenolol (Tenormin) 50 mg BID PO Last administered on 10/27/16 09:28; Admin Dose 50 MG; Start 10/26/16 at 21:00 Benazepril HCl (Lotensin) 40 mg DAILY PO Last administered on 10/27/16 09:28; Admin Dose 40 MG; Start 10/27/16 at 09:00 Furosemide (Lasix) 80 mg BID PO Last administered on 10/27/16 09:29; Admin Dose 80 MG; Start 10/26/16 at 21:00 Tramadol HCl 50 mg 50 mg Q12H PRN PO PAIN; Start 10/26/16 at 10:30 Piperacillin Sod/ Tazobactam Sod (Zosyn 2.25gm/ 50ml (Pmx)) 50 ml @ 100 mls/hr Q8 IVPB Last administered on 10/27/16t 06:18; Admin Dose 100 MLS/HR; Start at 12:00 Pantoprazole (Protonix Iv) 40 mg DAILY@06 IV Last administered on 10/27/16t 06: 18; Admin Dose 40 MG; Start 10/27/16 at 06:00 Influenza Virus Vaccine (Fluzone) 0.5 ml ONCE ONCE IM* ; Start 10/31/16 at 09:00 ; Stop 10/31/16 at 09:01 FRANCESCO HOGAN Oct 27, 2016 11:24
[2016-10-27] MEDS: traMADol 50 MG TAB PO PRN (16:47)
[2016-10-27] MEDS ORDERED: AZITHROMYCIN 500 MG in SOD CHLORIDE 0.9% 250 ML IVPB SCH (21:00)
[2016-10-27] MEDS: METHYLPREDNISOLONE 40 MG INJ IV SCH (21:04)
[2016-10-27] MEDS ORDERED: GUAIFENESIN/CODEINE 5ML CUP PO ONE (21:30)
[2016-10-28] VITALS (22 sets, daily range): BP systolic 115–157; BP diastolic 46–76; PULSE 57–79; RESP 18–20
[2016-10-28] MEDS: PANTOPRAZOLE 40 MG INJ IV SCH (05:50)
[2016-10-28] MEDS: METHYLPREDNISOLONE 40 MG INJ IV SCH ×3 (05:50→21:04)
[2016-10-28 07:49] LABS: BASOPHILS % 0.3 % (0.0-2.0); EOSINOPHILS % 0.1 % (0.0-7.0); HEMATOCRIT 33.7 % (37.0-47.0); HEMOGLOBIN 11.2 g/dl (12.0-16.0); LYMPHOCYTES # 0.6 10^3/ul (0.8-2.9); LYMPHOCYTES % 7.7 % (15.0-51.0); MEAN CORPUSCULAR HEMOGLOBIN 30.7 pg (29.0-33.0); MEAN CORPUSCULAR HGB CONC 33.2 g/dl (32.0-37.0); MEAN CORPUSCULAR VOLUME 92.3 fl (82.0-101.0); MEAN PLATELET VOLUME 8.8 fl (7.4-10.4); MONOCYTE # 0.1 10^3/ul (0.3-0.9); MONOCYTES % 1.4 % (0.0-11.0); NEUTROPHIL # 7.6 10^3/ul (1.6-7.5); NEUTROPHILS % 90.5 % (39.0-77.0); PLATELET COUNT 233 10^3/UL (140-440); RED BLOOD COUNT 3.65 10^6/ul (4.20-5.40); UNCORRECTED WBC 8.4 10^3/ul (4.8-10.8); WHITE BLOOD COUNT 8.4 10^3/ul (4.8-10.8)
[2016-10-28 08:00] LABS: CONDITION 1; LH ANALYZER COMMENTS 1
[2016-10-28 08:16] LABS: CREATININE 7.07 mg/dl (0.44-1.00)
[2016-10-28 08:17] LABS: CALCIUM 8.1 mg/dl (8.4-10.2)
[2016-10-28 08:27] LABS: POTASSIUM 6.1 mmol/L (3.5-5.1)
[2016-10-28] MEDS: ATENOLOL 50 MG TAB PO SCH ×2 (08:33→21:03)
[2016-10-28] MEDS: AMLODIPINE 5 MG TAB PO SCH ×2 (08:33→21:04)
[2016-10-28] MEDS: FUROSEMIDE 40 MG TAB PO SCH ×2 (08:33→21:04)
[2016-10-28] MEDS: BENAZEPRIL 40 MG TAB PO SCH (08:34)
[2016-10-28] MEDS: HEPARIN 5,000 UNIT/0.5 ML SYG SC SCH ×2 (08:52→21:16)
[2016-10-28 10:40] LABS: AADO2 Arterial 76.9 mmHg (7.0-24.0); Allen Test ACCEPTAB; Arterial Base Excess -2.2 mmol/L (-3.0-3); Arterial COHb 0.3 % (0.0-3.0); Arterial Fraction of Oxyhgb 94.1 % (93.0-99.0); Arterial HCO3 23.8 mmol/L (22.0-26.0); Arterial MetHb 0.2 % (0.0-1.5); Arterial Total Hemglobin 12.2 g/dl (12.0-18.0); MODE NASAL CANNULA
--- NOTE | 2016-10-28 10:44 | CONS ---
Date/Time of Note Date/Time of Note DATE: 10/28/16 TIME: 10:41 Assessment/Plan Assessment/Plan Additional Assessment/Plan 1. Bronchitis, rxd abx and bronchodilators 2. Cough and SOB, a component may be related to mild CHF, to have HD today 3. Elev K, kayexelate ordered and HD today Consultation Date/Type/Reason Admit Date/Time Oct 26, 2016 at 08:46 Detailed Summary Respiratory: cough (and congestion) Cardiovascular: No chest pain Gastrointestinal: pain (mild, poorly localized) Exam/Review of Systems Vital Signs Vitals Vital Signs Date Time Temp Pulse Resp B/P Pulse Ox O2 Delivery O2 Flow Rate FiO2 10/28/16 10:25 Nasal Cannula 4.0 10/28/16 08:07 63 10/28/16 07:53 98.1 18 132/58 94 10/26/16 21:28 40 Intake and Output 10/27/16 10/27/16 10/28/16 15:00 23:00 07:00 Intake Total 700 ml Balance 700 ml Exam Neck: No jvd Respiratory: other (few rhonchi and wheezes bilat) Cardiovascular: No regular rate and rhythm Gastrointestinal: tender (mild, not localized) Extremities: No edema Results Result Diagram: 10/28/16 0512 10/28/16 0512 Results 24 hrs Laboratory Tests Test 10/28/16 05:12 10/28/16 10:00 Anion Gap 26 H Basophils # 0.0 Basophils % 0.3 Blood Morphology Comment Blood Urea Nitrogen 54 H Calcium Level 8.1 L Carbon Dioxide Level 20 L Chloride Level 101 Creatinine 7.07 H Eosinophils # 0.0 Eosinophils % 0.1 Glucose Level 206 Hematocrit 33.7 L Hemoglobin 11.2 L Lymphocytes # 0.6 L Lymphocytes % 7.7 L Mean Corpuscular Hemoglobin 30.7 Mean Corpuscular Hemoglobin Concent 33.2 Mean Corpuscular Volume 92.3 Mean Platelet Volume 8.8 Monocytes # 0.1 L Monocytes % 1.4 Neutrophils # 7.6 H Neutrophils % 90.5 H Nucleated Red Blood Cells # 0.0 Nucleated Red Blood Cells % 0.0 Platelet Count 233 Potassium Level 6.1 *H Random Vancomycin Level 14.0 Red Blood Count 3.65 L Red Cell Distribution Width 16.0 H Sodium Level 141 White Blood Count 8.4 Arterial Blood HCO3 23.8 Arterial Blood Base Excess -2.2 Arterial Blood Oxygen Saturation 94.6 L Umesh Test ACCEPTAB Arterial Blood Gas Puncture Site Right Radial Arterial Blood Carboxyhemoglobin 0.3 Arterial Blood Date Drawn 10/28/2016 10:31:37 AM Arterial Blood Methemoglobin 0.2 Arterial Blood pCO2 (Temp correct) 45.7 H Arterial Blood pH (Temp corrected) 7.334 L Arterial Blood pO2 (Temp corrected) 83.3 Blood Gas A-a O2 Differential 76.9 H Blood Gas Modality NASAL CANNULA Blood Gas Notified Time 10/28/2016 10:40:29 AM Blood Gas Notified Whom ab Blood Gas Specimen Source Blood arterial Blood Gas Temperature 37.0 FiO2 30.0 Oxyhemoglobin Percent 94.1 Total Hemoglobin 12.2 Medications Medications Current Medications Ondansetron HCl (Zofran Inj) 4 mg Q6H PRN IV NAUSEA AND/OR VOMITING; Start at 10:30 Morphine Sulfate (morphine) 2 mg Q4H PRN IV SEVERE PAIN LEVEL 7-10; Start 10/26 at 10:30 Docusate Sodium (Colace) 100 mg Q12H PRN PO CONSTIPATION; Start 10/26/16 at 10: 30 Magnesium Hydroxide (Milk Of Mag) 30 ml Q24H PRN PO CONSTIPATION; Start at 10:30 Heparin Sodium (Porcine) (Heparin (5000 Units/0.5 ml)) 5,000 unit Q12 SC Last administered on 10/28/16 08:52; Admin Dose 5,000 UNIT; Start 10/26/16 at 21:00 Lorazepam (Ativan) 0.5 mg Q6H PRN IV ANXIETY Last administered on 10/26/16 12: 29; Admin Dose 0.5 MG; Start 10/26/16 at 10:30 Hydralazine HCl (Apresoline) 10 mg Q6H PRN IV ELEVATED BLOOD PRESSURE; Start at 10:30 Clonidine (Catapres) 0.1 mg Q6H PRN PO ELEVATED BLOOD PRESSURE; Start 10/26/16 at 10:30 Nitroglycerin (Nitroglycerin (Sl Tab) 0.4 Mg) 1 tab Q5M PRN SL ANGINA; Start at 10:30 Amlodipine Besylate (Norvasc) 5 mg BID PO Last administered on 10/28/16 08:33 ; Admin Dose 5 MG; Start 10/26/16 at 21:00 Atenolol (Tenormin) 50 mg BID PO Last administered on 10/28/16 08:33; Admin Dose 50 MG; Start 10/26/16 at 21:00 Benazepril HCl (Lotensin) 40 mg DAILY PO Last administered on 10/28/16 08:34; Admin Dose 40 MG; Start 10/27/16 at 09:00 Furosemide (Lasix) 80 mg BID PO Last administered on 10/28/16 08:33; Admin Dose 80 MG; Start 10/26/16 at 21:00 Tramadol HCl (Ultram) 50 mg Q12H PRN PO PAIN Last administered on 10/27/16 16: 47; Admin Dose 50 MG; Start 10/26/16 at 10:30 Pantoprazole (Protonix Iv) 40 mg DAILY@06 IV Last administered on 10/28/16 05: 50; Admin Dose 40 MG; Start 10/27/16 at 06:00 Influenza Virus Vaccine (Fluzone) 0.5 ml ONCE ONCE IM* ; Start 10/31/16 at 09:00 ; Stop 10/31/16 at 09:01 Methylprednisolone Sodium Succinate (Solu-Medrol) 40 mg Q8 IV Last administered on 10/28/16 05:50; Admin Dose 40 MG; Start 10/27/16 at 22:00 FLORENCIA LUNA MD Oct 28, 2016 10:44
--- NOTE | 2016-10-28 10:54 | PN ---
Date/Time of Note Date/Time of Note DATE: 10/28/16 TIME: 10:54 Assessment/Plan VTE Prophylaxis VTE Prophylaxis Intervention: heparin Lines/Catheters IV Catheter Type (from Nrs): Saline Lock Urinary Cath still in place: No Assessment/Plan Chief Complaint/Hosp Course ASSESSMENT AND PLAN: 61-year-old female who presents with hypoxia and shortness of breath, possibly secondary to combination of pneumonia + bronchitis. 1. Shortness of breath - improved. Again, chest x-ray shows pulmonary infiltrates - Suspect PNA possible bronchitis component/CHF?. Admitting ABG shows some slight hypercapnic respiratory failure - continue BiPAP prn, O2 supplementation - continue broad spectrum antibiotics - f/u pulmonary consultation. The patient may need a CT of the chest as well for further evaluation. 2. Essential hypertension. Blood pressure is stable. - Continue home blood pressure medicines as well as hydralazine p.r.n. 3. End-stage renal disease on hemodialysis. - f/u renal consult rec's, for HD today, Kayexalate as well for high K + today 4. Type 2 diabetes - f/u A1c, continue sliding scale insulin as well. 5. GI prophylaxis - PPI. 6. Deep venous thrombosis prophylaxis. Heparin subcutaneously. F/u PT consult as well and OT consult. Problems: Subjective 24 Hr Interval Summary Free Text/Dictation Seen by renal today, awaiting HD for today. Less SOB. Exam/Review of Systems Vital Signs Vitals Vital Signs Date Time Temp Pulse Resp B/P Pulse Ox O2 Delivery O2 Flow Rate FiO2 10/28/16 10:25 Nasal Cannula 4.0 10/28/16 08:07 63 10/28/16 07:53 98.1 18 132/58 94 10/26/16 21:28 40 Intake and Output 10/27/16 10/27/16 10/28/16 15:00 23:00 07:00 Intake Total 700 ml Balance 700 ml Exam GENERAL: The patient appears more alert. HEENT: Pupils equal, round, react to light. Extraocular muscles intact. NECK: Supple, no thyromegaly. LUNGS: less decreased breath sounds, less wheezes in bilateral bases. CARDIOVASCULAR: S1, S2 heard. No rubs, gallops. ABDOMEN: Soft, nontender, nondistended. Normal bowel sounds. No rebound or guarding. MUSCULOSKELETAL: No lower extremity edema bilaterally. NEUROLOGIC: No focal deficits. Results Result Diagram: 10/28/16 0512 10/28/16 0512 Results 24 hrs Laboratory Tests Test 10/28/16 05:12 10/28/16 10:00 Anion Gap 26 H Basophils # 0.0 Basophils % 0.3 Blood Morphology Comment Blood Urea Nitrogen 54 H Calcium Level 8.1 L Carbon Dioxide Level 20 L Chloride Level 101 Creatinine 7.07 H Eosinophils # 0.0 Eosinophils % 0.1 Glucose Level 206 Hematocrit 33.7 L Hemoglobin 11.2 L Lymphocytes # 0.6 L Lymphocytes % 7.7 L Mean Corpuscular Hemoglobin 30.7 Mean Corpuscular Hemoglobin Concent 33.2 Mean Corpuscular Volume 92.3 Mean Platelet Volume 8.8 Monocytes # 0.1 L Monocytes % 1.4 Neutrophils # 7.6 H Neutrophils % 90.5 H Nucleated Red Blood Cells # 0.0 Nucleated Red Blood Cells % 0.0 Platelet Count 233 Potassium Level 6.1 *H Random Vancomycin Level 14.0 Red Blood Count 3.65 L Red Cell Distribution Width 16.0 H Sodium Level 141 White Blood Count 8.4 Arterial Blood HCO3 23.8 Arterial Blood Base Excess -2.2 Arterial Blood Oxygen Saturation 94.6 L Umesh Test ACCEPTAB Arterial Blood Gas Puncture Site Right Radial Arterial Blood Carboxyhemoglobin 0.3 Arterial Blood Date Drawn 10/28/2016 10:31:37 AM Arterial Blood Methemoglobin 0.2 Arterial Blood pCO2 (Temp correct) 45.7 H Arterial Blood pH (Temp corrected) 7.334 L Arterial Blood pO2 (Temp corrected) 83.3 Blood Gas A-a O2 Differential 76.9 H Blood Gas Modality NASAL CANNULA Blood Gas Notified Time 10/28/2016 10:40:29 AM Blood Gas Notified Whom ab Blood Gas Specimen Source Blood arterial Blood Gas Temperature 37.0 FiO2 30.0 Oxyhemoglobin Percent 94.1 Total Hemoglobin 12.2 Medications Medications Current Medications Ondansetron HCl (Zofran Inj) 4 mg Q6H PRN IV NAUSEA AND/OR VOMITING; Start at 10:30 Morphine Sulfate (morphine) 2 mg Q4H PRN IV SEVERE PAIN LEVEL 7-10; Start 10/26 at 10:30 Docusate Sodium (Colace) 100 mg Q12H PRN PO CONSTIPATION; Start 10/26/16 at 10: 30 Magnesium Hydroxide (Milk Of Mag) 30 ml Q24H PRN PO CONSTIPATION; Start at 10:30 Heparin Sodium (Porcine) (Heparin (5000 Units/0.5 ml)) 5,000 unit Q12 SC Last administered on 10/28/16 08:52; Admin Dose 5,000 UNIT; Start 10/26/16 at 21:00 Lorazepam (Ativan) 0.5 mg Q6H PRN IV ANXIETY Last administered on 10/26/16 12: 29; Admin Dose 0.5 MG; Start 10/26/16 at 10:30 Hydralazine HCl (Apresoline) 10 mg Q6H PRN IV ELEVATED BLOOD PRESSURE; Start at 10:30 Clonidine (Catapres) 0.1 mg Q6H PRN PO ELEVATED BLOOD PRESSURE; Start 10/26/16 at 10:30 Nitroglycerin (Nitroglycerin (Sl Tab) 0.4 Mg) 1 tab Q5M PRN SL ANGINA; Start at 10:30 Amlodipine Besylate (Norvasc) 5 mg BID PO Last administered on 10/28/16 08:33 ; Admin Dose 5 MG; Start 10/26/16 at 21:00 Atenolol (Tenormin) 50 mg BID PO Last administered on 10/28/16 08:33; Admin Dose 50 MG; Start 10/26/16 at 21:00 Benazepril HCl (Lotensin) 40 mg DAILY PO Last administered on 10/28/16 08:34; Admin Dose 40 MG; Start 10/27/16 at 09:00 Furosemide (Lasix) 80 mg BID PO Last administered on 10/28/16 08:33; Admin Dose 80 MG; Start 10/26/16 at 21:00 Tramadol HCl (Ultram) 50 mg Q12H PRN PO PAIN Last administered on 10/27/16 16: 47; Admin Dose 50 MG; Start 10/26/16 at 10:30 Pantoprazole (Protonix Iv) 40 mg DAILY@06 IV Last administered on 10/28/16 05: 50; Admin Dose 40 MG; Start 10/27/16 at 06:00 Influenza Virus Vaccine (Fluzone) 0.5 ml ONCE ONCE IM* ; Start 10/31/16 at 09:00 ; Stop 10/31/16 at 09:01 Methylprednisolone Sodium Succinate (Solu-Medrol) 40 mg Q8 IV Last administered on 10/28/16t 05:50; Admin Dose 40 MG; Start 10/27/16 at 22:00 Sodium Polystyrene Sulfonate (Kayexalate) 30 gm ONCE ONCE PO ; Start 10/28/16 at 11:00; Stop 10/28/16 at 11:01 FRANCESCO HOGAN Oct 28, 2016 10:54
[2016-10-28] MEDS ORDERED: NA POLYST SULFON 15 GM/60 ML BTL PO ONE (11:00)
[2016-10-28] MEDS: GUAIFENESIN 20 MG/ML 5ML CUP PO PRN ×2 (13:37→19:39)
--- NOTE | 2016-10-28 13:49 | RADRPT ---
PROCEDURE: XR Chest. CLINICAL INDICATION: Respiratory distress, hypoxia, cough, shortness of breath. TECHNIQUE: AP view of the chest was performed. COMPARISON: October 26, 2016 FINDINGS: There is improved fluid status. Mild cardiomegaly and vascular congestion remains. No pneumothorax or pleural effusion. The osseous structures are intact. IMPRESSION: Improved fluid status. Mild cardiomegaly, vascular congestion vascular congestion remain. RPTAT: QQ. .Jessica Galloway MD, MD Date Time Electronically viewed and signed by .Jessica Galloway MD, MD on 10/28/2016 13:48 .F/
[2016-10-28] MEDS: CEPASTAT LOZENGE MT PRN ×2 (15:25→19:39)
--- NOTE | 2016-10-28 18:36 | CONS ---
DATE OF ADMISSION: 10/26/2016 DATE OF CONSULTATION: 10/27/2016 PRIMARY PHYSICIAN: Dr. Hogan. REASON FOR CONSULTATION: Shortness of breath. HISTORY OF PRESENT ILLNESS: Briefly, this is a 61-year-old female with history of end-stage renal d isease on dialysis, hypertension, diabetes, asthma who was admitted yesterday with increasing shortn ess of breath and cough. She was noted to have what appears to be in acute hypercapnic respiratory insufficiency, initially requiring BiPAP. She denies any sick contacts; however, has had some flu-l laura symptoms as of late. PAST MEDICAL HISTORY: As noted above. ALLERGIES: ACETAMINOPHEN. MEDICATIONS: Please see MAR. PAST SURGICAL HISTORY: AV fistula placement in the past. FAMILY HISTORY: Noncontributory. SOCIAL HISTORY: No alcohol, illicit drug use or tobacco. REVIEW OF SYSTEMS: As noted in the HPI. PHYSICAL EXAMINATION: GENERAL: An elderly female in mild respiratory distress with mild accessory muscle use. VITAL SIGNS: Temperature is 99.0, heart rate is 69, blood pressure is 130/60, oxygen saturation 98% on 4 liters nasal cannula. HEENT: Normocephalic, atraumatic. NECK: Supple, no thyromegaly. CARDIOVASCULAR: Regular rate and rhythm, S1 and S2. CHEST: There is diffuse bilateral wheezing and poor air entry bilaterally. ABDOMEN: Obese, nontender, no hepatosplenomegaly. EXTREMITIES: No cyanosis, clubbing or edema. LABORATORY DATA: BUN is 36, creatinine is 5.29. Coags are within normal limits. ABG: pH is 7.28, pCO2 of 52, pO2 of 88. Chest x-ray shows mild pulmonary venous congestion. Otherwise, no obvious infiltrates. IMPRESSION: 1. Shortness of breath with evidence of acute respiratory acidosis. In view of patient's clinical findings and exam, this is most consistent with an acute asthma exacerbation. Recommendations: Br onchodilators with DuoNeb q.4 hours and q.2 hours p.r.n. 2. Will initiate systemic corticosteroids with plans to taper. 3. Would de-escalate antibiotics. 4. Will recheck an ABG and use BiPAP as needed p.r.n. 5. Continuation of hemodialysis as per renal. Dictated By: LORNA ALVAREZ/DENISE Conf#: [id number] DID#: [id number] CC: CLAUDIA CARRASQUILLO MD; FRANCESCO HOGAN;*End*
--- NOTE | 2016-10-28 18:48 | CONS ---
Date/Time of Note Date/Time of Note DATE: 10/28/16 TIME: 18:46 Consult Date/Type/Reason Admit Date/Time Oct 26, 2016 at 08:46 Initial Consult Date Type of Consultation: Pulm Subjective Better today. Objective Vital Signs Date Time Temp Pulse Resp B/P Pulse Ox O2 Delivery O2 Flow Rate FiO2 10/28/16 16:57 69 10/28/16 16:45 14 10/28/16 15:30 98.2 119/56 95 10/28/16 13:43 3.0 10/28/16 10:25 Nasal Cannula 10/26/16 21:28 40 Intake and Output 10/27/16 10/27/16 10/28/16 15:00 23:00 07:00 Intake Total 700 ml Balance 700 ml HEENT: Normocephalic, atraumatic. NECK: Supple, no thyromegaly. CARDIOVASCULAR: Regular rate and rhythm, S1 and S2. CHEST: There is diffuse bilateral wheezing and poor air entry bilaterally. ABDOMEN: Obese, nontender, no hepatosplenomegaly. EXTREMITIES: No cyanosis, clubbing or edema. Results/Medications Result Diagram: 10/28/16 0512 10/28/16 0512 Results 24 hrs Laboratory Tests Test 10/28/16 05:12 10/28/16 10:00 Anion Gap 26 H Basophils # 0.0 Basophils % 0.3 Blood Morphology Comment Blood Urea Nitrogen 54 H Calcium Level 8.1 L Carbon Dioxide Level 20 L Chloride Level 101 Creatinine 7.07 H Eosinophils # 0.0 Eosinophils % 0.1 Glucose Level 206 Hematocrit 33.7 L Hemoglobin 11.2 L Lymphocytes # 0.6 L Lymphocytes % 7.7 L Mean Corpuscular Hemoglobin 30.7 Mean Corpuscular Hemoglobin Concent 33.2 Mean Corpuscular Volume 92.3 Mean Platelet Volume 8.8 Monocytes # 0.1 L Monocytes % 1.4 Neutrophils # 7.6 H Neutrophils % 90.5 H Nucleated Red Blood Cells # 0.0 Nucleated Red Blood Cells % 0.0 Platelet Count 233 Potassium Level 6.1 *H Random Vancomycin Level 14.0 Red Blood Count 3.65 L Red Cell Distribution Width 16.0 H Sodium Level 141 White Blood Count 8.4 Arterial Blood HCO3 23.8 Arterial Blood Base Excess -2.2 Arterial Blood Oxygen Saturation 94.6 L Umesh Test ACCEPTAB Arterial Blood Gas Puncture Site Right Radial Arterial Blood Carboxyhemoglobin 0.3 Arterial Blood Date Drawn 10/28/2016 10:31:37 AM Arterial Blood Methemoglobin 0.2 Arterial Blood pCO2 (Temp correct) 45.7 H Arterial Blood pH (Temp corrected) 7.334 L Arterial Blood pO2 (Temp corrected) 83.3 Blood Gas A-a O2 Differential 76.9 H Blood Gas Modality NASAL CANNULA Blood Gas Notified Time 10/28/2016 10:40:29 AM Blood Gas Notified Whom ab Blood Gas Specimen Source Blood arterial Blood Gas Temperature 37.0 FiO2 30.0 Oxyhemoglobin Percent 94.1 Total Hemoglobin 12.2 Medications Current Medications Ondansetron HCl (Zofran Inj) 4 mg Q6H PRN IV NAUSEA AND/OR VOMITING; Start at 10:30 Morphine Sulfate (morphine) 2 mg Q4H PRN IV SEVERE PAIN LEVEL 7-10; Start 10/26 at 10:30 Docusate Sodium (Colace) 100 mg Q12H PRN PO CONSTIPATION; Start 10/26/16 at 10: 30 Magnesium Hydroxide (Milk Of Mag) 30 ml Q24H PRN PO CONSTIPATION; Start at 10:30 Heparin Sodium (Porcine) (Heparin (5000 Units/0.5 ml)) 5,000 unit Q12 SC Last administered on 10/28/16 08:52; Admin Dose 5,000 UNIT; Start 10/26/16 at 21:00 Lorazepam (Ativan) 0.5 mg Q6H PRN IV ANXIETY Last administered on 10/26/16 12: 29; Admin Dose 0.5 MG; Start 10/26/16 at 10:30 Hydralazine HCl (Apresoline) 10 mg Q6H PRN IV ELEVATED BLOOD PRESSURE; Start at 10:30 Clonidine (Catapres) 0.1 mg Q6H PRN PO ELEVATED BLOOD PRESSURE; Start 10/26/16 at 10:30 Nitroglycerin (Nitroglycerin (Sl Tab) 0.4 Mg) 1 tab Q5M PRN SL ANGINA; Start at 10:30 Amlodipine Besylate (Norvasc) 5 mg BID PO Last administered on 10/28/16 08:33 ; Admin Dose 5 MG; Start 10/26/16 at 21:00 Atenolol (Tenormin) 50 mg BID PO Last administered on 10/28/16 08:33; Admin Dose 50 MG; Start 10/26/16 at 21:00 Benazepril HCl (Lotensin) 40 mg DAILY PO Last administered on 10/28/16 08:34; Admin Dose 40 MG; Start 10/27/16 at 09:00 Furosemide (Lasix) 80 mg BID PO Last administered on 10/28/16 08:33; Admin Dose 80 MG; Start 10/26/16 at 21:00 Tramadol HCl (Ultram) 50 mg Q12H PRN PO PAIN Last administered on 10/27/16 16: 47; Admin Dose 50 MG; Start 10/26/16 at 10:30 Pantoprazole (Protonix Iv) 40 mg DAILY@06 IV Last administered on 10/28/16 05: 50; Admin Dose 40 MG; Start 10/27/16 at 06:00 Influenza Virus Vaccine (Fluzone) 0.5 ml ONCE ONCE IM* ; Start 10/31/16 at 09:00 ; Stop 10/31/16 at 09:01 Methylprednisolone Sodium Succinate (Solu-Medrol) 40 mg Q8 IV Last administered on 10/28/16 13:38; Admin Dose 40 MG; Start 10/27/16 at 22:00 Guaifenesin (Robitussin Liquid Cup) 200 mg Q4H PRN PO COUGH Last administered on 10/28/16 13:37; Admin Dose 200 MG; Start 10/28/16 at 12:30 Phenol (Cepastat Lozenge) 1 lozenge Q1H PRN MT COUGH Last administered on 15:25; Admin Dose 1 LOZENGE; Start 10/28/16 at 12:30 Assessment/Plan Additional Assessment/Plan IMPRESSION: 1. Shortness of breath with evidence of acute respiratory acidosis. In view of patient's clinical findings and exam, this is most consistent with an acute asthma exacerbation. RECS: 1. Bronchodilators with DuoNeb q.4 hours and q.2 hours p.r.n. 2. CS taper 3. Would de-escalate antibiotics. 4. ABG improved. 5. HD as per renal LORNA CARRIZALES MD Oct 28, 2016 18:48
[2016-10-28] MEDS: ZOLPIDEM 5 MG TAB PO PRN (19:39)
[2016-10-29] VITALS (16 sets, daily range): BP systolic 119–185; BP diastolic 57–81; PULSE 61–75; RESP 18–19
[2016-10-29] MEDS: METHYLPREDNISOLONE 40 MG INJ IV SCH ×2 (04:47→14:20)
[2016-10-29] MEDS: PANTOPRAZOLE 40 MG INJ IV SCH (04:47)
[2016-10-29] MEDS: GUAIFENESIN 20 MG/ML 5ML CUP PO PRN ×4 (04:48→17:34)
[2016-10-29 07:32] LABS: HEMATOCRIT 33.5 % (37.0-47.0); HEMOGLOBIN 11.2 g/dl (12.0-16.0); LYMPHOCYTES # 0.6 10^3/ul (0.8-2.9); LYMPHOCYTES % 6.1 % (15.0-51.0); MEAN CORPUSCULAR HEMOGLOBIN 30.6 pg (29.0-33.0); MEAN CORPUSCULAR HGB CONC 33.5 g/dl (32.0-37.0); MEAN CORPUSCULAR VOLUME 91.4 fl (82.0-101.0); MEAN PLATELET VOLUME 8.8 fl (7.4-10.4); MONOCYTE # 0.3 10^3/ul (0.3-0.9); MONOCYTES % 2.4 % (0.0-11.0); NEUTROPHIL # 9.7 10^3/ul (1.6-7.5); NEUTROPHILS % 91.5 % (39.0-77.0); PLATELET COUNT 215 10^3/UL (140-440); RED BLOOD COUNT 3.67 10^6/ul (4.20-5.40); UNCORRECTED WBC 10.6 10^3/ul (4.8-10.8); WHITE BLOOD COUNT 10.6 10^3/ul (4.8-10.8)
[2016-10-29 07:35] LABS: CONDITION 1; LH ANALYZER COMMENTS 1
[2016-10-29 07:48] LABS: POTASSIUM 3.8 mmol/L (3.5-5.1)
[2016-10-29 07:51] LABS: CREATININE 5.72 mg/dl (0.44-1.00)
[2016-10-29 07:52] LABS: CALCIUM 7.5 mg/dl (8.4-10.2)
[2016-10-29] MEDS: FUROSEMIDE 40 MG TAB PO SCH ×2 (08:41→21:00)
[2016-10-29] MEDS: AMLODIPINE 5 MG TAB PO SCH ×2 (08:41→21:00)
[2016-10-29] MEDS: BENAZEPRIL 40 MG TAB PO SCH (08:41)
[2016-10-29] MEDS: ATENOLOL 50 MG TAB PO SCH ×2 (08:42→21:00)
[2016-10-29] MEDS: CEPASTAT LOZENGE MT PRN ×4 (08:42→17:34)
[2016-10-29] MEDS: HEPARIN 5,000 UNIT/0.5 ML SYG SC SCH ×2 (09:05→21:00)
--- NOTE | 2016-10-29 11:05 | CONS ---
Date/Time of Note Date/Time of Note DATE: 10/29/16 TIME: 11:03 Assessment/Plan Assessment/Plan Additional Assessment/Plan Assessment and recommendations; next 1. Patient admitted with asthma exacerbation with significant clinical improvement. 2. Persistent cough possibly indicative of underlying bronchitis. 3. End-stage renal disease on hemodialysis. 4. Mild CHF. 5. Hypertension. 6. DM. Add Zithromax orally 500 mg daily. Continue Solu-Medrol and other supportive care. Add long-acting insulin for better glycemic control. Consultation Date/Type/Reason Admit Date/Time Oct 26, 2016 at 08:46 Initial Consult Date Type of Consultation: Pulm 24 HR Interval Summary Free Text/Dictation Patient condition is improved. Patient denies any wheezing but complains of cough with very scant sputum production. Denies any chest pain, fever chills. General exam; middle aged woman currently in no distress. Several bouts of coughing were noted. Exam/Review of Systems Vital Signs Vitals Vital Signs Date Time Temp Pulse Resp B/P Pulse Ox O2 Delivery O2 Flow Rate FiO2 10/29/16 09:02 73 10/29/16 07:46 97.9 19 166/72 93 10/29/16 05:48 3.0 10/28/16 10:25 Nasal Cannula 10/26/16 21:28 40 Intake and Output 10/28/16 10/28/16 10/29/16 15:00 23:00 07:00 Intake Total 1100 ml 400 ml Output Total 3900 ml Balance -2800 ml 400 ml Exam H EENT examination; supple neck, no JVD. Pharynx is clear. No neck masses. No thyromegaly. Chest examination; diminished but clear breath sounds bilaterally no added sounds. S1-S2 audible, no murmurs. Regular rhythm. Abdomen examination; soft, nontender, bowel sounds audible. Extremity examination; no peripheral edema. There is an AV shunt in the left arm. 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 Results Result Diagram: 10/29/16 0632 10/29/16 0632 Results 24 hrs Laboratory Tests Test 10/29/16 06:32 Anion Gap 22 H Basophils # 0.0 Basophils % 0.0 Blood Morphology Comment Blood Urea Nitrogen 47 H Calcium Level 7.5 L Carbon Dioxide Level 29 Chloride Level 95 L Creatinine 5.72 H Eosinophils # 0.0 Eosinophils % 0.0 Glucose Level 293 H Hematocrit 33.5 L Hemoglobin 11.2 L Lymphocytes # 0.6 L Lymphocytes % 6.1 L Mean Corpuscular Hemoglobin 30.6 Mean Corpuscular Hemoglobin Concent 33.5 Mean Corpuscular Volume 91.4 Mean Platelet Volume 8.8 Monocytes # 0.3 Monocytes % 2.4 Neutrophils # 9.7 H Neutrophils % 91.5 H Nucleated Red Blood Cells # 0.0 Nucleated Red Blood Cells % 0.0 Platelet Count 215 Potassium Level 3.8 # Red Blood Count 3.67 L Red Cell Distribution Width 16.0 H Sodium Level 142 White Blood Count 10.6 # Medications Medications Current Medications Ondansetron HCl (Zofran Inj) 4 mg Q6H PRN IV NAUSEA AND/OR VOMITING; Start at 10:30 Morphine Sulfate (morphine) 2 mg Q4H PRN IV SEVERE PAIN LEVEL 7-10; Start 10/26 at 10:30 Docusate Sodium (Colace) 100 mg Q12H PRN PO CONSTIPATION; Start 10/26/16 at 10: 30 Magnesium Hydroxide (Milk Of Mag) 30 ml Q24H PRN PO CONSTIPATION; Start at 10:30 Heparin Sodium (Porcine) (Heparin (5000 Units/0.5 ml)) 5,000 unit Q12 SC Last administered on 10/29/16 09:05; Admin Dose 5,000 UNIT; Start 10/26/16 at 21:00 Lorazepam (Ativan) 0.5 mg Q6H PRN IV ANXIETY Last administered on 10/26/16 12: 29; Admin Dose 0.5 MG; Start 10/26/16 at 10:30 Hydralazine HCl (Apresoline) 10 mg Q6H PRN IV ELEVATED BLOOD PRESSURE; Start at 10:30 Clonidine (Catapres) 0.1 mg Q6H PRN PO ELEVATED BLOOD PRESSURE; Start 10/26/16 at 10:30 Nitroglycerin (Nitroglycerin (Sl Tab) 0.4 Mg) 1 tab Q5M PRN SL ANGINA; Start at 10:30 Amlodipine Besylate (Norvasc) 5 mg BID PO Last administered on 10/29/16 08:41 ; Admin Dose 5 MG; Start 10/26/16 at 21:00 Atenolol (Tenormin) 50 mg BID PO Last administered on 10/29/16 08:42; Admin Dose 50 MG; Start 10/26/16 at 21:00 Benazepril HCl (Lotensin) 40 mg DAILY PO Last administered on 10/29/16 08:41; Admin Dose 40 MG; Start 10/27/16 at 09:00 Furosemide (Lasix) 80 mg BID PO Last administered on 10/29/16 08:41; Admin Dose 80 MG; Start 10/26/16 at 21:00 Tramadol HCl (Ultram) 50 mg Q12H PRN PO PAIN Last administered on 10/27/16 16: 47; Admin Dose 50 MG; Start 10/26/16 at 10:30 Pantoprazole (Protonix Iv) 40 mg DAILY@06 IV Last administered on 10/29/16 04: 47; Admin Dose 40 MG; Start 10/27/16 at 06:00 Influenza Virus Vaccine (Fluzone) 0.5 ml ONCE ONCE IM* ; Start 10/31/16 at 09:00 ; Stop 10/31/16 at 09:01 Methylprednisolone Sodium Succinate (Solu-Medrol) 40 mg Q8 IV Last administered on 10/29/16 04:47; Admin Dose 40 MG; Start 10/27/16 at 22:00 Guaifenesin (Robitussin Liquid Cup) 200 mg Q4H PRN PO COUGH Last administered on 10/29/16 08:42; Admin Dose 200 MG; Start 10/28/16 at 12:30 Phenol (Cepastat Lozenge) 1 lozenge Q1H PRN MT COUGH Last administered on 08:42; Admin Dose 1 LOZENGE; Start 10/28/16 at 12:30 Zolpidem Tartrate (Ambien) 5 mg HS PRN PO INSOMNIA Last administered on 19:39; Admin Dose 5 MG; Start 10/28/16 at 19:30 Insulin Glargine (Lantus) 10 unit DAILY@20 SC ; Start 10/29/16 at 20:00; Status UNV Azithromycin (Zithromax) 500 mg DAILY PO ; Start 10/29/16 at 11:30 EVANGELIST NUGENT Oct 29, 2016 11:05
[2016-10-29] MEDS ORDERED: DEXTROSE 50% 50 ML SYRINGE IV PRN ×2 (11:30)
[2016-10-29] MEDS ORDERED: GLUCOSE GEL 15 GRAM TUBE PO PRN ×2 (11:30)
[2016-10-29] MEDS ORDERED: GLUCAGON 1 MG INJ IM PRN (11:30)
[2016-10-29] MEDS ORDERED: GLUCOSE GEL 15 GRAM TUBE BUCCAL PRN (11:30)
[2016-10-29] MEDS ORDERED: AZITHROMYCIN 250 MG TAB PO SCH (11:30)
--- NOTE | 2016-10-29 13:48 | CONS ---
Date/Time of Note Date/Time of Note DATE: 10/29/16 TIME: 13:43 Assessment/Plan Assessment/Plan Chief Complaint/Hosp Course 1. ESRD , she had a hemodialysis treatment yesterday for hyperkalemia 2. she is still having cough and wheezing , CXR shows continued mild CHF . will order 2 hours of DUF today . 3. bronchitis, she is on steroids 4. DM 5. HTN Problems: Consultation Date/Type/Reason Admit Date/Time Oct 26, 2016 at 08:46 Initial Consult Date Type of Consultation: Pulm 24 HR Interval Summary Free Text/Dictation she c/o cough and wheezing Exam/Review of Systems Vital Signs Vitals Vital Signs Date Time Temp Pulse Resp B/P Pulse Ox O2 Delivery O2 Flow Rate FiO2 10/29/16 12:59 70 185/81 10/29/16 11:22 98.0 19 92 10/29/16 11:02 Nasal Cannula 4.0 10/26/16 21:28 40 Intake and Output 10/28/16 10/28/16 10/29/16 15:00 23:00 07:00 Intake Total 1100 ml 400 ml Output Total 3900 ml Balance -2800 ml 400 ml Exam Constitutional: alert, oriented, well developed Psych: nl mood/affect, no complaints Respiratory: wheezing Cardiovascular: regular rate and rhythm Gastrointestinal: soft Musculoskeletal: nl extremities to inspection Results Result Diagram: 10/29/16 0632 10/29/16 0632 Results 24 hrs Laboratory Tests Test 10/29/16 06:32 Anion Gap 22 H Basophils # 0.0 Basophils % 0.0 Blood Morphology Comment Blood Urea Nitrogen 47 H Calcium Level 7.5 L Carbon Dioxide Level 29 Chloride Level 95 L Creatinine 5.72 H Eosinophils # 0.0 Eosinophils % 0.0 Glucose Level 293 H Hematocrit 33.5 L Hemoglobin 11.2 L Lymphocytes # 0.6 L Lymphocytes % 6.1 L Mean Corpuscular Hemoglobin 30.6 Mean Corpuscular Hemoglobin Concent 33.5 Mean Corpuscular Volume 91.4 Mean Platelet Volume 8.8 Monocytes # 0.3 Monocytes % 2.4 Neutrophils # 9.7 H Neutrophils % 91.5 H Nucleated Red Blood Cells # 0.0 Nucleated Red Blood Cells % 0.0 Platelet Count 215 Potassium Level 3.8 # Red Blood Count 3.67 L Red Cell Distribution Width 16.0 H Sodium Level 142 White Blood Count 10.6 # Medications Medications Current Medications Ondansetron HCl (Zofran Inj) 4 mg Q6H PRN IV NAUSEA AND/OR VOMITING; Start at 10:30 Morphine Sulfate (morphine) 2 mg Q4H PRN IV SEVERE PAIN LEVEL 7-10; Start 10/26 at 10:30 Docusate Sodium (Colace) 100 mg Q12H PRN PO CONSTIPATION; Start 10/26/16 at 10: 30 Magnesium Hydroxide (Milk Of Mag) 30 ml Q24H PRN PO CONSTIPATION; Start at 10:30 Heparin Sodium (Porcine) (Heparin (5000 Units/0.5 ml)) 5,000 unit Q12 SC Last administered on 10/29/16 09:05; Admin Dose 5,000 UNIT; Start 10/26/16 at 21:00 Lorazepam (Ativan) 0.5 mg Q6H PRN IV ANXIETY Last administered on 10/26/16 12: 29; Admin Dose 0.5 MG; Start 10/26/16 at 10:30 Hydralazine HCl (Apresoline) 10 mg Q6H PRN IV ELEVATED BLOOD PRESSURE Last administered on 10/29/16 12:59; Admin Dose 10 MG; Start 10/26/16 at 10:30 Clonidine (Catapres) 0.1 mg Q6H PRN PO ELEVATED BLOOD PRESSURE; Start 10/26/16 at 10:30 Nitroglycerin (Nitroglycerin (Sl Tab) 0.4 Mg) 1 tab Q5M PRN SL ANGINA; Start at 10:30 Amlodipine Besylate (Norvasc) 5 mg BID PO Last administered on 10/29/16 08:41 ; Admin Dose 5 MG; Start 10/26/16 at 21:00 Atenolol (Tenormin) 50 mg BID PO Last administered on 10/29/16 08:42; Admin Dose 50 MG; Start 10/26/16 at 21:00 Benazepril HCl (Lotensin) 40 mg DAILY PO Last administered on 10/29/16 08:41; Admin Dose 40 MG; Start 10/27/16 at 09:00 Furosemide (Lasix) 80 mg BID PO Last administered on 10/29/16 08:41; Admin Dose 80 MG; Start 10/26/16 at 21:00 Tramadol HCl (Ultram) 50 mg Q12H PRN PO PAIN Last administered on 10/27/16 16: 47; Admin Dose 50 MG; Start 10/26/16 at 10:30 Pantoprazole (Protonix Iv) 40 mg DAILY@06 IV Last administered on 10/29/16 04: 47; Admin Dose 40 MG; Start 10/27/16 at 06:00 Influenza Virus Vaccine (Fluzone) 0.5 ml ONCE ONCE IM* ; Start 10/31/16 at 09:00 ; Stop 10/31/16 at 09:01 Methylprednisolone Sodium Succinate (Solu-Medrol) 40 mg Q8 IV Last administered on 10/29/16 04:47; Admin Dose 40 MG; Start 10/27/16 at 22:00 Guaifenesin (Robitussin Liquid Cup) 200 mg Q4H PRN PO COUGH Last administered on 10/29/16 12:58; Admin Dose 200 MG; Start 10/28/16 at 12:30 Phenol (Cepastat Lozenge) 1 lozenge Q1H PRN MT COUGH Last administered on 12:58; Admin Dose 1 LOZENGE; Start 10/28/16 at 12:30 Zolpidem Tartrate (Ambien) 5 mg HS PRN PO INSOMNIA Last administered on 19:39; Admin Dose 5 MG; Start 10/28/16 at 19:30 Insulin Glargine (Lantus) 10 unit DAILY@20 SC ; Start 10/29/16 at 20:00 Azithromycin (Zithromax) 500 mg DAILY PO Last administered on 10/29/16 11:18; Admin Dose 500 MG; Start 10/29/16 at 11:30 Miscellaneous Information 1 ea NOTE XX ; Start 10/29/16 at 11:30 Glucose (Glutose) 15 gm Q15M PRN PO DECREASED GLUCOSE; Start 10/29/16 at 11:30 Glucose (Glutose) 22.5 gm Q15M PRN PO DECREASED GLUCOSE; Start 10/29/16 at 11: 30 Dextrose (D50w Syringe) 25 ml Q15M PRN IV DECREASED GLUCOSE; Start 10/29/16 at 11:30 Dextrose (D50w Syringe) 50 ml Q15M PRN IV DECREASED GLUCOSE; Start 10/29/16 at 11:30 Glucagon (Glucagen) 1 mg Q15M PRN IM DECREASED GLUCOSE; Start 10/29/16 at 11:30 Glucose (Glutose) 15 gm Q15M PRN BUCCAL DECREASED GLUCOSE; Start 10/29/16 at 11 :30 WILVER DAVIES MD Oct 29, 2016 13:48
--- NOTE | 2016-10-29 15:01 | PN ---
Date/Time of Note Date/Time of Note DATE: 10/29/16 TIME: 14:53 Assessment/Plan VTE Prophylaxis VTE Prophylaxis Intervention: heparin Lines/Catheters IV [facility] Urinary Cath still in place: No Assessment/Plan Assessment/Plan 61-year-old female who presents with hypoxia and shortness of breath, possibly secondary to combination of pneumonia + bronchitis. 1. CHF excerbation 2. Hypoxic / Hypercapnic respiratory failure : resolved on room air 3. Acute bronchitis 4. Essential hypertension. Blood pressure is stable. 5. End-stage renal disease on hemodialysis. 4. Type 2 diabetes - f/u A1c, continue sliding scale insulin as well. PLAN: continue in-house supportive care Increaseb bronchodilator therapy to RTC / add inhaled steroids IV abx / dialysis to help with diuresis GI prophylaxis - PPI. Deep venous thrombosis prophylaxis. Heparin subcutaneously. F/u PT consult as well and OT consult. Subjective 24 Hr Interval Summary Free Text/Dictation c/o cough No more SOB, feels much better except for persistent dry cough Exam/Review of Systems Vital Signs Vitals Vital Signs Date Time Temp Pulse Resp B/P Pulse Ox O2 Delivery O2 Flow Rate FiO2 10/29/16 12:59 70 185/81 10/29/16 11:22 98.0 19 92 10/29/16 11:02 Nasal Cannula 4.0 10/26/16 21:28 40 Intake and Output 10/28/16 10/28/16 10/29/16 15:00 23:00 07:00 Intake Total 1100 ml 400 ml Output Total 3900 ml Balance -2800 ml 400 ml Exam Head: normocephalic Eyes: PERRL ENMT: mucosa pink and moist Neck: non-tender, supple, No jvd Respiratory: clear to auscultation, diminished breath sounds Cardiovascular: regular rate and rhythm, No murmurs/extra sounds Gastrointestinal: bowel sounds, non-tender, soft Extremities: No edema Neurological: nl mental status, nl speech, No focal weakness Results Result Diagram: 10/29/16 0632 10/29/16 0632 Results 24 hrs Laboratory Tests Test 10/29/16 06:32 Anion Gap 22 H Basophils # 0.0 Basophils % 0.0 Blood Morphology Comment Blood Urea Nitrogen 47 H Calcium Level 7.5 L Carbon Dioxide Level 29 Chloride Level 95 L Creatinine 5.72 H Eosinophils # 0.0 Eosinophils % 0.0 Glucose Level 293 H Hematocrit 33.5 L Hemoglobin 11.2 L Lymphocytes # 0.6 L Lymphocytes % 6.1 L Mean Corpuscular Hemoglobin 30.6 Mean Corpuscular Hemoglobin Concent 33.5 Mean Corpuscular Volume 91.4 Mean Platelet Volume 8.8 Monocytes # 0.3 Monocytes % 2.4 Neutrophils # 9.7 H Neutrophils % 91.5 H Nucleated Red Blood Cells # 0.0 Nucleated Red Blood Cells % 0.0 Platelet Count 215 Potassium Level 3.8 # Red Blood Count 3.67 L Red Cell Distribution Width 16.0 H Sodium Level 142 White Blood Count 10.6 # Medications Medications Current Medications Ondansetron HCl (Zofran Inj) 4 mg Q6H PRN IV NAUSEA AND/OR VOMITING; Start at 10:30 Morphine Sulfate (morphine) 2 mg Q4H PRN IV SEVERE PAIN LEVEL 7-10; Start 10/26 at 10:30 Docusate Sodium (Colace) 100 mg Q12H PRN PO CONSTIPATION; Start 10/26/16 at 10: 30 Magnesium Hydroxide (Milk Of Mag) 30 ml Q24H PRN PO CONSTIPATION; Start at 10:30 Heparin Sodium (Porcine) (Heparin (5000 Units/0.5 ml)) 5,000 unit Q12 SC Last administered on 10/29/16 09:05; Admin Dose 5,000 UNIT; Start 10/26/16 at 21:00 Lorazepam (Ativan) 0.5 mg Q6H PRN IV ANXIETY Last administered on 10/26/16 12: 29; Admin Dose 0.5 MG; Start 10/26/16 at 10:30 Hydralazine HCl (Apresoline) 10 mg Q6H PRN IV ELEVATED BLOOD PRESSURE Last administered on 10/29/16 12:59; Admin Dose 10 MG; Start 10/26/16 at 10:30 Clonidine (Catapres) 0.1 mg Q6H PRN PO ELEVATED BLOOD PRESSURE; Start 10/26/16 at 10:30 Nitroglycerin (Nitroglycerin (Sl Tab) 0.4 Mg) 1 tab Q5M PRN SL ANGINA; Start at 10:30 Amlodipine Besylate (Norvasc) 5 mg BID PO Last administered on 10/29/16 08:41 ; Admin Dose 5 MG; Start 10/26/16 at 21:00 Atenolol (Tenormin) 50 mg BID PO Last administered on 10/29/16 08:42; Admin Dose 50 MG; Start 10/26/16 at 21:00 Benazepril HCl (Lotensin) 40 mg DAILY PO Last administered on 10/29/16 08:41; Admin Dose 40 MG; Start 10/27/16 at 09:00 Furosemide (Lasix) 80 mg BID PO Last administered on 10/29/16 08:41; Admin Dose 80 MG; Start 10/26/16 at 21:00 Tramadol HCl (Ultram) 50 mg Q12H PRN PO PAIN Last administered on 10/27/16 16: 47; Admin Dose 50 MG; Start 10/26/16 at 10:30 Pantoprazole (Protonix Iv) 40 mg DAILY@06 IV Last administered on 10/29/16 04: 47; Admin Dose 40 MG; Start 10/27/16 at 06:00 Influenza Virus Vaccine (Fluzone) 0.5 ml ONCE ONCE IM* ; Start 10/31/16 at 09:00 ; Stop 10/31/16 at 09:01 Methylprednisolone Sodium Succinate (Solu-Medrol) 40 mg Q8 IV Last administered on 10/29/16 14:20; Admin Dose 40 MG; Start 10/27/16 at 22:00 Guaifenesin (Robitussin Liquid Cup) 200 mg Q4H PRN PO COUGH Last administered on 10/29/16 12:58; Admin Dose 200 MG; Start 10/28/16 at 12:30 Phenol (Cepastat Lozenge) 1 lozenge Q1H PRN MT COUGH Last administered on 12:58; Admin Dose 1 LOZENGE; Start 10/28/16 at 12:30 Zolpidem Tartrate (Ambien) 5 mg HS PRN PO INSOMNIA Last administered on 19:39; Admin Dose 5 MG; Start 10/28/16 at 19:30 Insulin Glargine (Lantus) 10 unit DAILY@20 SC ; Start 10/29/16 at 20:00 Azithromycin (Zithromax) 500 mg DAILY PO Last administered on 2/20/17at 11:18; Admin Dose 500 MG; Start 10/29/16 at 11:30 Miscellaneous Information 1 ea NOTE XX ; Start 10/29/16 at 11:30 Glucose (Glutose) 15 gm Q15M PRN PO DECREASED GLUCOSE; Start 10/29/16 at 11:30 Glucose (Glutose) 22.5 gm Q15M PRN PO DECREASED GLUCOSE; Start 10/29/16 at 11: 30 Dextrose (D50w Syringe) 25 ml Q15M PRN IV DECREASED GLUCOSE; Start 10/29/16 at 11:30 Dextrose (D50w Syringe) 50 ml Q15M PRN IV DECREASED GLUCOSE; Start 10/29/16 at 11:30 Glucagon (Glucagen) 1 mg Q15M PRN IM DECREASED GLUCOSE; Start 10/29/16 at 11:30 Glucose (Glutose) 15 gm Q15M PRN BUCCAL DECREASED GLUCOSE; Start 10/29/16 at 11 :30 LEEANNE CHERRY Oct 29, 2016 15:01
[2016-10-29] MEDS: ALBUTEROL/IPRATROPIUM (NEB) 3 ML AMP HHN SCH ×3 (15:48→20:16)
[2016-10-29] MEDS: SALMETEROL/FLUTICASONE 250/50 INHA INH SCH (17:34)
[2016-10-29] MEDS: INSULIN GLARGINE [LANtus] 3 ML PEN SC SCH (20:00)
[2016-10-30] VITALS (9 sets, daily range): BP systolic 102–139; BP diastolic 52–70; PULSE 62–76; RESP 16–18
[2016-10-30] MEDS: FUROSEMIDE 40 MG TAB PO SCH ×3 (00:56→20:41)
[2016-10-30] MEDS: GUAIFENESIN 20 MG/ML 5ML CUP PO PRN ×2 (00:56→05:19)
[2016-10-30] MEDS: AMLODIPINE 5 MG TAB PO SCH ×3 (00:57→20:41)
[2016-10-30] MEDS: SALMETEROL/FLUTICASONE 250/50 INHA INH SCH ×3 (00:57→20:40)
[2016-10-30] MEDS: ATENOLOL 50 MG TAB PO SCH ×3 (00:57→20:41)
[2016-10-30] MEDS: HEPARIN 5,000 UNIT/0.5 ML SYG SC SCH ×3 (00:59→20:40)
[2016-10-30] MEDS: INSULIN GLARGINE [LANtus] 3 ML PEN SC SCH (01:00)
[2016-10-30] MEDS ORDERED: INSULIN GLARGINE [LANtus] 3 ML PEN SC ONE ×2 (01:00→09:30)
[2016-10-30] MEDS: METHYLPREDNISOLONE 40 MG INJ IV SCH ×2 (01:03→06:00)
[2016-10-30] MEDS ORDERED: INSULIN ASPART [NOVOLOG] 3 ML PEN SC ONE ×2 (03:30→04:40)
[2016-10-30 03:52] LABS: BASOPHILS % 0.3 % (0.0-2.0); HEMATOCRIT 35.6 % (37.0-47.0); LYMPHOCYTES # 0.5 10^3/ul (0.8-2.9); LYMPHOCYTES % 3.3 % (15.0-51.0); MEAN CORPUSCULAR HEMOGLOBIN 30.8 pg (29.0-33.0); MEAN CORPUSCULAR HGB CONC 33.7 g/dl (32.0-37.0); MEAN CORPUSCULAR VOLUME 91.4 fl (82.0-101.0); MEAN PLATELET VOLUME 8.4 fl (7.4-10.4); MONOCYTE # 0.4 10^3/ul (0.3-0.9); MONOCYTES % 2.7 % (0.0-11.0); NEUTROPHIL # 14.1 10^3/ul (1.6-7.5); NEUTROPHILS % 93.7 % (39.0-77.0); PLATELET COUNT 234 10^3/UL (140-440); RED BLOOD COUNT 3.89 10^6/ul (4.20-5.40)
[2016-10-30 03:54] LABS: CONDITION 1; LH ANALYZER COMMENTS 1
[2016-10-30 04:02] LABS: ALBUMIN 4.2 g/dl (3.3-4.9)
[2016-10-30 04:03] LABS: POTASSIUM 4.4 mmol/L (3.5-5.1)
[2016-10-30 04:05] LABS: ALBUMIN/GLOBULIN RATIO 1.4; CREATININE 6.86 mg/dl (0.44-1.00); TOTAL PROTEIN 7.2 g/dl (6.1-8.1)
[2016-10-30 04:06] LABS: CALCIUM 6.9 mg/dl (8.4-10.2)
[2016-10-30] MEDS: PANTOPRAZOLE (EC) 40 MG TAB PO SCH (05:19)
[2016-10-30 06:29] LABS: POTASSIUM 3.7 mmol/L (3.5-5.1)
[2016-10-30 06:31] LABS: CREATININE 6.99 mg/dl (0.44-1.00)
[2016-10-30 06:32] LABS: CALCIUM 6.8 mg/dl (8.4-10.2)
[2016-10-30] MEDS: ALBUTEROL/IPRATROPIUM (NEB) 3 ML AMP HHN SCH ×4 (08:20→20:49)
[2016-10-30] MEDS: BENAZEPRIL 40 MG TAB PO SCH (09:26)
[2016-10-30] MEDS ORDERED: CALCIUM GLUCONATE 10% 2 GM in SOD CHLORIDE 0.9% 100 ML IVPB SCH (10:00)
[2016-10-30] MEDS: AZITHROMYCIN 500MG/NS (PMX) 250 ML IVPB SCH (11:47)
--- NOTE | 2016-10-30 13:30 | CONS ---
Date/Time of Note Date/Time of Note DATE: 10/30/16 TIME: 13:25 Assessment/Plan Assessment/Plan Chief Complaint/Hosp Course 1. ESRD , she had a hemodialysis treatment for DUF yesterday . She is having a hemodialysis treatment now and I will order one for tomorrow . 2. she is still having an intermittent cough and wheezing , 3. bronchitis, she is on steroids , CXR today 4. DM 5. HTN Problems: Consultation Date/Type/Reason Admit Date/Time Oct 26, 2016 at 08:46 Type of Consultation: Pulm 24 HR Interval Summary Free Text/Dictation She is feeling better but she is still coughing .She is now having her hemodialysis treatment . Exam/Review of Systems Vital Signs Vitals Vital Signs Date Time Temp Pulse Resp B/P Pulse Ox O2 Delivery O2 Flow Rate FiO2 10/30/16 12:39 76 16 10/30/16 08:20 93 21 10/30/16 07:37 98.4 134/61 10/30/16 05:25 4.0 10/29/16 21:00 Nasal Cannula Intake and Output 10/29/16 10/29/16 10/30/16 15:00 23:00 07:00 Intake Total 940 ml Output Total 2500 ml Balance -1560 ml Exam Constitutional: alert, oriented, well developed Respiratory: congested cough, wheezing Cardiovascular: regular rate and rhythm Musculoskeletal: nl extremities to inspection Results Result Diagram: 10/30/16 0343 10/30/16 0522 Results 24 hrs Laboratory Tests Test 10/30/16 00:43 10/30/16 03:16 10/30/16 03:43 10/30/16 04:06 Bedside Glucose 447 *H 527 *H 492 *H Alanine Aminotransferase (ALT/SGPT) 21 Albumin 4.2 Albumin/Globulin Ratio 1.40 Alkaline Phosphatase 130 H Anion Gap 27 H Aspartate Amino Transf (AST/SGOT) 17 Basophils # 0.0 Basophils % 0.3 Blood Morphology Comment Blood Urea Nitrogen 76 H Calcium Level 6.9 L Carbon Dioxide Level 23 Chloride Level 90 L Creatinine 6.86 H Direct Bilirubin 0.00 Eosinophils # 0.0 Eosinophils % 0.0 Globulin 3.00 Glucose Level 552 *H Hematocrit 35.6 L Hemoglobin 12.0 Indirect Bilirubin 0.0 Lymphocytes # 0.5 L Lymphocytes % 3.3 L Mean Corpuscular Hemoglobin 30.8 Mean Corpuscular Hemoglobin Concent 33.7 Mean Corpuscular Volume 91.4 Mean Platelet Volume 8.4 Monocytes # 0.4 Monocytes % 2.7 Neutrophils # 14.1 H Neutrophils % 93.7 H Nucleated Red Blood Cells # 0.0 Nucleated Red Blood Cells % 0.0 Platelet Count 234 Potassium Level 4.4 Red Blood Count 3.89 L Red Cell Distribution Width 16.0 H Sodium Level 136 Total Bilirubin 0.0 L Total Protein 7.2 White Blood Count 15.0 #H Test 10/30/16 04:25 10/30/16 05:13 10/30/16 05:22 10/30/16 06:04 Bedside Glucose 438 *H 431 *H 375 H Anion Gap 27 H Blood Urea Nitrogen 79 H Calcium Level 6.8 L Carbon Dioxide Level 22 Chloride Level 92 L Creatinine 6.99 H Glucose Level 456 *H Potassium Level 3.7 Sodium Level 137 Test 10/30/16 09:37 Bedside Glucose 381 H Medications Medications Current Medications Ondansetron HCl (Zofran Inj) 4 mg Q6H PRN IV NAUSEA AND/OR VOMITING; Start at 10:30 Morphine Sulfate (morphine) 2 mg Q4H PRN IV SEVERE PAIN LEVEL 7-10; Start 10/26 at 10:30 Docusate Sodium (Colace) 100 mg Q12H PRN PO CONSTIPATION; Start 10/26/16 at 10: 30 Magnesium Hydroxide (Milk Of Mag) 30 ml Q24H PRN PO CONSTIPATION; Start at 10:30 Heparin Sodium (Porcine) (Heparin (5000 Units/0.5 ml)) 5,000 unit Q12 SC Last administered on 10/30/16 09:31; Admin Dose 5,000 UNIT; Start 10/26/16 at 21:00 Lorazepam (Ativan) 0.5 mg Q6H PRN IV ANXIETY Last administered on 10/26/16 12: 29; Admin Dose 0.5 MG; Start 10/26/16 at 10:30 Hydralazine HCl (Apresoline) 10 mg Q6H PRN IV ELEVATED BLOOD PRESSURE Last administered on 10/29/16 12:59; Admin Dose 10 MG; Start 10/26/16 at 10:30 Clonidine (Catapres) 0.1 mg Q6H PRN PO ELEVATED BLOOD PRESSURE Last administered on 10/29/16 16:00; Admin Dose 0.1 MG; Start 10/26/16 at 10:30 Nitroglycerin (Nitroglycerin (Sl Tab) 0.4 Mg) 1 tab Q5M PRN SL ANGINA; Start at 10:30 Amlodipine Besylate (Norvasc) 5 mg BID PO Last administered on 10/30/16 09:27 ; Admin Dose 5 MG; Start 10/26/16 at 21:00 Atenolol (Tenormin) 50 mg BID PO Last administered on 10/30/16 09:27; Admin Dose 50 MG; Start 10/26/16 at 21:00 Benazepril HCl (Lotensin) 40 mg DAILY PO Last administered on 10/30/16 09:26; Admin Dose 40 MG; Start 10/27/16 at 09:00 Furosemide (Lasix) 80 mg BID PO Last administered on 10/30/16 09:27; Admin Dose 80 MG; Start 10/26/16 at 21:00 Tramadol HCl (Ultram) 50 mg Q12H PRN PO PAIN Last administered on 10/27/16 16: 47; Admin Dose 50 MG; Start 10/26/16 at 10:30 Influenza Virus Vaccine (Fluzone) 0.5 ml ONCE ONCE IM* ; Start 10/31/16 at 09:00 ; Stop 10/31/16 at 09:01 Guaifenesin (Robitussin Liquid Cup) 200 mg Q4H PRN PO COUGH Last administered on 10/30/16 05:19; Admin Dose 200 MG; Start 10/28/16 at 12:30 Phenol (Cepastat Lozenge) 1 lozenge Q1H PRN MT COUGH Last administered on 17:34; Admin Dose 1 LOZENGE; Start 10/28/16 at 12:30 Zolpidem Tartrate (Ambien) 5 mg HS PRN PO INSOMNIA Last administered on 19:39; Admin Dose 5 MG; Start 10/28/16 at 19:30 Insulin Glargine (Lantus) 10 unit DAILY@20 SC Last administered on 10/30/16 01 :00; Admin Dose 10 UNIT; Start 10/29/16 at 20:00 Miscellaneous Information 1 ea NOTE XX ; Start 10/29/16 at 11:30 Glucose (Glutose) 15 gm Q15M PRN PO DECREASED GLUCOSE; Start 10/29/16 at 11:30 Glucose (Glutose) 22.5 gm Q15M PRN PO DECREASED GLUCOSE; Start 10/29/16 at 11: 30 Dextrose (D50w Syringe) 25 ml Q15M PRN IV DECREASED GLUCOSE; Start 10/29/16 at 11:30 Dextrose (D50w Syringe) 50 ml Q15M PRN IV DECREASED GLUCOSE; Start 10/29/16 at 11:30 Glucagon (Glucagen) 1 mg Q15M PRN IM DECREASED GLUCOSE; Start 10/29/16 at 11:30 Glucose 15 gm 15 gm Q15M PRN BUCCAL DECREASED GLUCOSE; Start 10/29/16 at 11:30 Azithromycin (Zithromax 500mg/ NS (Pmx)) 250 ml @ 250 mls/hr Q24H IVPB Last administered on 10/30/16 11:47; Admin Dose 250 MLS/HR; Start 10/30/16 at 09:00 Salmeterol Xinafoate/ Fluticasone (Advair 250/50 Diskus) 1 inh BID INH Last administered on 10/30/16 09:25; Admin Dose 1 INH; Start 10/29/16 at 16:00 Pantoprazole (Protonix Tab) 40 mg DAILY@06 PO Last administered on 10/30/16 05 :19; Admin Dose 40 MG; Start 10/30/16 at 06:00 WILVER DAVIES MD Oct 30, 2016 13:29
--- NOTE | 2016-10-30 15:20 | RADRPT ---
PROCEDURE: XR Chest. CLINICAL INDICATION: Cough TECHNIQUE: Single frontal chest x-ray. COMPARISON: None. FINDINGS: The lungs are clear. No focal opacification is seen. The cardiomediastinal silhouette is mildly en larged. Mild pulmonary congestion has resolved. There is aortic atherosclerosis. The osseous struct ures are unremarkable. IMPRESSION: 1. No acute infiltrates. 2. Mild cardiomegaly. Aortic atherosclerosis. RPTAT: BB .El Acosta MD, MD Date Time Electronically viewed and signed by .El Acosta MD, MD on 10/30/2016 15:19 .O/
--- NOTE | 2016-10-30 15:51 | PN ---
Date/Time of Note Date/Time of Note DATE: 10/30/16 TIME: 15:48 Assessment/Plan VTE Prophylaxis VTE Prophylaxis Intervention: heparin Lines/Catheters IV Catheter Type (from [facility]): [facility] Urinary Cath still in place: No Assessment/Plan Assessment/Plan 61-year-old female who presents with hypoxia and shortness of breath, possibly secondary to combination of pneumonia + bronchitis. 1. CHF exacerbation: much improved 2. Hypoxic / Hypercapnic respiratory failure : resolved on room air 3. Acute bronchitis: improving 4. Essential hypertension. controlled. 5. End-stage renal disease on hemodialysis. 4. Type 2 diabetes - f/u A1c, poor control 2/ steroids PLAN: continue in-house supportive care continue RTC bronchodilator / d/c steroids / continue in-house dialysis to help with diuresis Continue current abx regimen Patient improving slowly, probable d/c tomorrow. GI prophylaxis - PPI. Deep venous thrombosis prophylaxis. Heparin subcutaneously. Subjective 24 Hr Interval Summary Constitutional: improved Respiratory: cough, pleuritic pain, No shortness of breath Exam/Review of Systems Vital Signs Vitals Vital Signs Date Time Temp Pulse Resp B/P Pulse Ox O2 Delivery O2 Flow Rate FiO2 10/30/16 13:30 64 10/30/16 12:39 16 10/30/16 08:20 93 21 10/30/16 07:37 98.4 134/61 10/30/16 05:25 4.0 10/29/16 21:00 Nasal Cannula Intake and Output 10/29/16 10/29/16 10/30/16 15:00 23:00 07:00 Intake Total 940 ml Output Total 2500 ml Balance -1560 ml Exam Constitutional: alert, obese, oriented, No distress Psych: anxiety Head: atraumatic, normocephalic Eyes: PERRL, No icteric ENMT: mucosa pink and moist Neck: supple Respiratory: diminished breath sounds, No crackles/rales, No wheezing Cardiovascular: regular rate and rhythm, No murmurs/extra sounds Gastrointestinal: bowel sounds, non-tender, soft Extremities: edema Neurological: nl mental status Results Result Diagram: 10/30/16 0343 10/30/16 0522 Results 24 hrs Laboratory Tests Test 10/30/16 00:43 10/30/16 03:16 10/30/16 03:43 10/30/16 04:06 Bedside Glucose 447 *H 527 *H 492 *H Alanine Aminotransferase (ALT/SGPT) 21 Albumin 4.2 Albumin/Globulin Ratio 1.40 Alkaline Phosphatase 130 H Anion Gap 27 H Aspartate Amino Transf (AST/SGOT) 17 Basophils # 0.0 Basophils % 0.3 Blood Morphology Comment Blood Urea Nitrogen 76 H Calcium Level 6.9 L Carbon Dioxide Level 23 Chloride Level 90 L Creatinine 6.86 H Direct Bilirubin 0.00 Eosinophils # 0.0 Eosinophils % 0.0 Globulin 3.00 Glucose Level 552 *H Hematocrit 35.6 L Hemoglobin 12.0 Indirect Bilirubin 0.0 Lymphocytes # 0.5 L Lymphocytes % 3.3 L Mean Corpuscular Hemoglobin 30.8 Mean Corpuscular Hemoglobin Concent 33.7 Mean Corpuscular Volume 91.4 Mean Platelet Volume 8.4 Monocytes # 0.4 Monocytes % 2.7 Neutrophils # 14.1 H Neutrophils % 93.7 H Nucleated Red Blood Cells # 0.0 Nucleated Red Blood Cells % 0.0 Platelet Count 234 Potassium Level 4.4 Red Blood Count 3.89 L Red Cell Distribution Width 16.0 H Sodium Level 136 Total Bilirubin 0.0 L Total Protein 7.2 White Blood Count 15.0 #H Test 10/30/16 04:25 10/30/16 05:13 10/30/16 05:22 10/30/16 06:04 Bedside Glucose 438 *H 431 *H 375 H Anion Gap 27 H Blood Urea Nitrogen 79 H Calcium Level 6.8 L Carbon Dioxide Level 22 Chloride Level 92 L Creatinine 6.99 H Glucose Level 456 *H Potassium Level 3.7 Sodium Level 137 Test 10/30/16 09:37 10/30/16 14:45 Bedside Glucose 381 H 267 H Medications Medications Current Medications Ondansetron HCl (Zofran Inj) 4 mg Q6H PRN IV NAUSEA AND/OR VOMITING; Start at 10:30 Morphine Sulfate (morphine) 2 mg Q4H PRN IV SEVERE PAIN LEVEL 7-10; Start 10/26 at 10:30 Docusate Sodium (Colace) 100 mg Q12H PRN PO CONSTIPATION; Start 10/26/16 at 10: 30 Magnesium Hydroxide (Milk Of Mag) 30 ml Q24H PRN PO CONSTIPATION; Start at 10:30 Heparin Sodium (Porcine) (Heparin (5000 Units/0.5 ml)) 5,000 unit Q12 SC Last administered on 10/30/16 09:31; Admin Dose 5,000 UNIT; Start 10/26/16 at 21:00 Lorazepam (Ativan) 0.5 mg Q6H PRN IV ANXIETY Last administered on 10/26/16 12: 29; Admin Dose 0.5 MG; Start 10/26/16 at 10:30 Hydralazine HCl (Apresoline) 10 mg Q6H PRN IV ELEVATED BLOOD PRESSURE Last administered on 10/29/16 12:59; Admin Dose 10 MG; Start 10/26/16 at 10:30 Clonidine (Catapres) 0.1 mg Q6H PRN PO ELEVATED BLOOD PRESSURE Last administered on 10/29/16 16:00; Admin Dose 0.1 MG; Start 10/26/16 at 10:30 Nitroglycerin (Nitroglycerin (Sl Tab) 0.4 Mg) 1 tab Q5M PRN SL ANGINA; Start at 10:30 Amlodipine Besylate (Norvasc) 5 mg BID PO Last administered on 10/30/16 09:27 ; Admin Dose 5 MG; Start 10/26/16 at 21:00 Atenolol (Tenormin) 50 mg BID PO Last administered on 10/30/16 09:27; Admin Dose 50 MG; Start 10/26/16 at 21:00 Benazepril HCl (Lotensin) 40 mg DAILY PO Last administered on 10/30/16 09:26; Admin Dose 40 MG; Start 10/27/16 at 09:00 Furosemide (Lasix) 80 mg BID PO Last administered on 10/30/16 09:27; Admin Dose 80 MG; Start 10/26/16 at 21:00 Tramadol HCl (Ultram) 50 mg Q12H PRN PO PAIN Last administered on 10/27/16 16: 47; Admin Dose 50 MG; Start 10/26/16 at 10:30 Influenza Virus Vaccine (Fluzone) 0.5 ml ONCE ONCE IM* ; Start 10/31/16 at 09:00 ; Stop 10/31/16 at 09:01 Guaifenesin (Robitussin Liquid Cup) 200 mg Q4H PRN PO COUGH Last administered on 10/30/16 05:19; Admin Dose 200 MG; Start 10/28/16 at 12:30 Phenol (Cepastat Lozenge) 1 lozenge Q1H PRN MT COUGH Last administered on 17:34; Admin Dose 1 LOZENGE; Start 10/28/16 at 12:30 Zolpidem Tartrate (Ambien) 5 mg HS PRN PO INSOMNIA Last administered on 19:39; Admin Dose 5 MG; Start 10/28/16 at 19:30 Miscellaneous Information 1 ea NOTE XX ; Start 10/29/16 at 11:30 Glucose (Glutose) 15 gm Q15M PRN PO DECREASED GLUCOSE; Start 10/29/16 at 11:30 Glucose (Glutose) 22.5 gm Q15M PRN PO DECREASED GLUCOSE; Start 10/29/16 at 11: 30 Dextrose (D50w Syringe) 25 ml Q15M PRN IV DECREASED GLUCOSE; Start 10/29/16 at 11:30 Dextrose (D50w Syringe) 50 ml Q15M PRN IV DECREASED GLUCOSE; Start 10/29/16 at 11:30 Glucagon (Glucagen) 1 mg Q15M PRN IM DECREASED GLUCOSE; Start 10/29/16 at 11:30 Glucose 15 gm 15 gm Q15M PRN BUCCAL DECREASED GLUCOSE; Start 10/29/16 at 11:30 Azithromycin (Zithromax 500mg/ NS (Pmx)) 250 ml @ 250 mls/hr Q24H IVPB Last administered on 10/30/16 11:47; Admin Dose 250 MLS/HR; Start 10/30/16 at 09:00 Salmeterol Xinafoate/ Fluticasone (Advair 250/50 Diskus) 1 inh BID INH Last administered on 10/30/16 09:25; Admin Dose 1 INH; Start 10/29/16 at 16:00 Pantoprazole (Protonix Tab) 40 mg DAILY@06 PO Last administered on 10/30/16 05 :19; Admin Dose 40 MG; Start 10/30/16 at 06:00 Insulin Glargine (Lantus) 20 unit DAILY@20 SC ; Start 10/30/16 at 20:00 LEEANNE CHERRY Oct 30, 2016 15:51
[2016-10-30] MEDS: INSULIN ASPART [NOVOLOG] 3 ML PEN SC SCH (18:20)
[2016-10-30] MEDS ORDERED: INSULIN GLARGINE [LANtus] 3 ML PEN SC SCH (20:00)
[2016-10-30] MEDS: ZOLPIDEM 5 MG TAB PO PRN (22:31)
[2016-10-31] VITALS (8 sets, daily range): BP systolic 109–123; BP diastolic 53–66; PULSE 60–72; RESP 16–20
[2016-10-31] MEDS: CEPASTAT LOZENGE MT PRN ×2 (03:05→09:11)
[2016-10-31] MEDS: GUAIFENESIN 20 MG/ML 5ML CUP PO PRN ×2 (03:05→09:12)
[2016-10-31] MEDS: PANTOPRAZOLE (EC) 40 MG TAB PO SCH (05:41)
[2016-10-31 08:37] LABS: POTASSIUM 3.5 mmol/L (3.5-5.1)
[2016-10-31 08:39] LABS: CREATININE 6.4 mg/dl (0.44-1.00)
[2016-10-31 08:40] LABS: CALCIUM 7.2 mg/dl (8.4-10.2)
[2016-10-31] MEDS: INSULIN ASPART [NOVOLOG] 3 ML PEN SC SCH ×3 (08:55→17:52)
[2016-10-31] MEDS ORDERED: INFLUENZA VIRUS VACCINE 0.5 ML (DISPENSING) IM* ONE (09:00)
[2016-10-31] MEDS: SALMETEROL/FLUTICASONE 250/50 INHA INH SCH ×2 (09:04→20:13)
[2016-10-31] MEDS: BENAZEPRIL 40 MG TAB PO SCH (09:04)
[2016-10-31] MEDS: AMLODIPINE 5 MG TAB PO SCH ×2 (09:05→20:19)
[2016-10-31] MEDS: FUROSEMIDE 40 MG TAB PO SCH ×2 (09:05→20:14)
[2016-10-31] MEDS: ATENOLOL 50 MG TAB PO SCH ×2 (09:05→20:15)
[2016-10-31] MEDS: AZITHROMYCIN 500MG/NS (PMX) 250 ML IVPB SCH (09:07)
[2016-10-31] MEDS: HEPARIN 5,000 UNIT/0.5 ML SYG SC SCH ×2 (09:10→20:20)
[2016-10-31 09:23] LABS: BASOPHILS % 0.1 % (0.0-2.0); EOSINOPHILS % 0.3 % (0.0-7.0); HEMATOCRIT 36.4 % (37.0-47.0); HEMOGLOBIN 12.2 g/dl (12.0-16.0); LYMPHOCYTES % 16.8 % (15.0-51.0); MEAN CORPUSCULAR HEMOGLOBIN 30.6 pg (29.0-33.0); MEAN CORPUSCULAR HGB CONC 33.4 g/dl (32.0-37.0); MEAN CORPUSCULAR VOLUME 91.8 fl (82.0-101.0); MEAN PLATELET VOLUME 8.9 fl (7.4-10.4); MONOCYTE # 0.6 10^3/ul (0.3-0.9); MONOCYTES % 5.1 % (0.0-11.0); NEUTROPHIL # 9.1 10^3/ul (1.6-7.5); NEUTROPHILS % 77.7 % (39.0-77.0); PLATELET COUNT 208 10^3/UL (140-440); RED BLOOD COUNT 3.97 10^6/ul (4.20-5.40); UNCORRECTED WBC 11.7 10^3/ul (4.8-10.8); WHITE BLOOD COUNT 11.7 10^3/ul (4.8-10.8)
[2016-10-31 09:24] LABS: CONDITION 1; LH ANALYZER COMMENTS 1
[2016-10-31] MEDS: ALBUTEROL/IPRATROPIUM (NEB) 3 ML AMP HHN SCH ×2 (09:36→20:38)
--- NOTE | 2016-10-31 13:24 | CONS ---
Date/Time of Note Date/Time of Note DATE: 10/31/16 TIME: 13:17 Assessment/Plan Assessment/Plan Chief Complaint/Hosp Course 1. ESRD , she is scheduled for hemodialysis treatment today . 2. pleuritic chest pain , new today , will order some Motrin prn . 3. bronchitis, she is on steroids and cough and wheezing have improved , CXR done yesterday shows that CHF has resolved 4. DM 5. HTN Problems: Consultation Date/Type/Reason Admit Date/Time Oct 26, 2016 at 08:46 Type of Consultation: Pulm 24 HR Interval Summary Free Text/Dictation She is having some pleuritic chest pain . Her cough and wheezing have improved . Exam/Review of Systems Vital Signs Vitals Vital Signs Date Time Temp Pulse Resp B/P Pulse Ox O2 Delivery O2 Flow Rate FiO2 10/31/16 09:36 70 18 94 21 10/31/16 07:53 98.6 118/56 10/30/16 08:00 Nasal Cannula 10/30/16 05:25 4.0 Intake and Output 10/30/16 10/30/16 10/31/16 15:00 23:00 07:00 Intake Total 750 ml 1260 ml 680 ml Output Total 2500 ml 1 ml Balance -1750 ml 1259 ml 680 ml Exam Constitutional: alert, oriented, well developed Psych: no complaints Respiratory: clear to auscultation, normal air movement Cardiovascular: regular rate and rhythm Musculoskeletal: nl extremities to inspection Results Result Diagram: 10/31/16 0657 10/31/16 0657 Results 24 hrs Laboratory Tests Test 10/30/16 14:45 10/30/16 16:43 10/30/16 20:36 10/31/16 06:57 Bedside Glucose 267 H 337 H 325 H Anion Gap 24 H Basophils # 0.0 Basophils % 0.1 Blood Morphology Comment Blood Urea Nitrogen 77 H Calcium Level 7.2 L Carbon Dioxide Level 26 Chloride Level 96 L Creatinine 6.40 H Eosinophils # 0.0 Eosinophils % 0.3 Glucose Level 153 # Hematocrit 36.4 L Hemoglobin 12.2 Lymphocytes # 2.0 Lymphocytes % 16.8 Mean Corpuscular Hemoglobin 30.6 Mean Corpuscular Hemoglobin Concent 33.4 Mean Corpuscular Volume 91.8 Mean Platelet Volume 8.9 Monocytes # 0.6 Monocytes % 5.1 Neutrophils # 9.1 H Neutrophils % 77.7 H Nucleated Red Blood Cells # 0.0 Nucleated Red Blood Cells % 0.0 Platelet Count 208 Potassium Level 3.5 Red Blood Count 3.97 L Red Cell Distribution Width 16.0 H Sodium Level 142 White Blood Count 11.7 #H Test 10/31/16 08:53 10/31/16 12:26 Bedside Glucose 185 254 H Medications Medications Current Medications Ondansetron HCl (Zofran Inj) 4 mg Q6H PRN IV NAUSEA AND/OR VOMITING; Start at 10:30 Morphine Sulfate (morphine) 2 mg Q4H PRN IV SEVERE PAIN LEVEL 7-10; Start 10/26 at 10:30 Docusate Sodium (Colace) 100 mg Q12H PRN PO CONSTIPATION; Start 10/26/16 at 10: 30 Magnesium Hydroxide (Milk Of Mag) 30 ml Q24H PRN PO CONSTIPATION; Start at 10:30 Heparin Sodium (Porcine) (Heparin (5000 Units/0.5 ml)) 5,000 unit Q12 SC Last administered on 10/31/16 09:10; Admin Dose 5,000 UNIT; Start 10/26/16 at 21:00 Lorazepam (Ativan) 0.5 mg Q6H PRN IV ANXIETY Last administered on 10/26/16 12: 29; Admin Dose 0.5 MG; Start 10/26/16 at 10:30 Hydralazine HCl (Apresoline) 10 mg Q6H PRN IV ELEVATED BLOOD PRESSURE Last administered on 10/29/16 12:59; Admin Dose 10 MG; Start 10/26/16 at 10:30 Clonidine (Catapres) 0.1 mg Q6H PRN PO ELEVATED BLOOD PRESSURE Last administered on 10/29/16 16:00; Admin Dose 0.1 MG; Start 10/26/16 at 10:30 Nitroglycerin (Nitroglycerin (Sl Tab) 0.4 Mg) 1 tab Q5M PRN SL ANGINA; Start at 10:30 Amlodipine Besylate (Norvasc) 5 mg BID PO Last administered on 10/31/16 09:05 ; Admin Dose 5 MG; Start 10/26/16 at 21:00 Atenolol (Tenormin) 50 mg BID PO Last administered on 10/31/16 09:05; Admin Dose 50 MG; Start 10/26/16 at 21:00 Benazepril HCl (Lotensin) 40 mg DAILY PO Last administered on 10/31/16 09:04; Admin Dose 40 MG; Start 10/27/16 at 09:00 Furosemide (Lasix) 80 mg BID PO Last administered on 10/31/16 09:05; Admin Dose 80 MG; Start 10/26/16 at 21:00 Tramadol HCl (Ultram) 50 mg Q12H PRN PO PAIN Last administered on 10/27/16 16: 47; Admin Dose 50 MG; Start 10/26/16 at 10:30 Guaifenesin (Robitussin Liquid Cup) 200 mg Q4H PRN PO COUGH Last administered on 10/31/16 09:12; Admin Dose 200 MG; Start 10/28/16 at 12:30 Phenol (Cepastat Lozenge) 1 lozenge Q1H PRN MT COUGH Last administered on 09:11; Admin Dose 1 LOZENGE; Start 10/28/16 at 12:30 Zolpidem Tartrate (Ambien) 5 mg HS PRN PO INSOMNIA Last administered on 22:31; Admin Dose 5 MG; Start 10/28/16 at 19:30 Miscellaneous Information 1 ea NOTE XX ; Start 10/29/16 at 11:30 Glucose (Glutose) 15 gm Q15M PRN PO DECREASED GLUCOSE; Start 10/29/16 at 11:30 Glucose (Glutose) 22.5 gm Q15M PRN PO DECREASED GLUCOSE; Start 10/29/16 at 11: 30 Dextrose (D50w Syringe) 25 ml Q15M PRN IV DECREASED GLUCOSE; Start 10/29/16 at 11:30 Dextrose (D50w Syringe) 50 ml Q15M PRN IV DECREASED GLUCOSE; Start 10/29/16 at 11:30 Glucagon (Glucagen) 1 mg Q15M PRN IM DECREASED GLUCOSE; Start 10/29/16 at 11:30 Glucose 15 gm 15 gm Q15M PRN BUCCAL DECREASED GLUCOSE; Start 10/29/16 at 11:30 Azithromycin (Zithromax 500mg/ NS (Pmx)) 250 ml @ 250 mls/hr Q24H IVPB Last administered on 10/31/16 09:07; Admin Dose 250 MLS/HR; Start 10/30/16 at 09:00 Salmeterol Xinafoate/ Fluticasone (Advair 250/50 Diskus) 1 inh BID INH Last administered on 10/31/16 09:04; Admin Dose 1 INH; Start 10/29/16 at 16:00 Pantoprazole (Protonix Tab) 40 mg DAILY@06 PO Last administered on 10/31/16 05 :41; Admin Dose 40 MG; Start 10/30/16 at 06:00 Insulin Glargine (Lantus) 20 unit DAILY@20 SC Last administered on 10/30/16 20 :38; Admin Dose 20 UNIT; Start 10/30/16 at 20:00 WILVER DAVIES MD Oct 31, 2016 13:24
[2016-10-31] MEDS ORDERED: IBUPROFEN 400 MG TAB PO PRN (13:30)
[2016-10-31] MEDS ORDERED: ALBUMIN HUMAN 25% 100 ML IV PRN (15:30)
--- NOTE | 2016-10-31 15:58 | PN ---
Date/Time of Note Date/Time of Note DATE: 10/31/16 TIME: 15:48 Assessment/Plan VTE Prophylaxis VTE Prophylaxis Intervention: heparin Lines/Catheters IV Catheter Type (from [facility]): [facility] Urinary Cath still in place: No Assessment/Plan Assessment/Plan 1. Acute bronchitis/pneumonia, improving, on antibiotics 2. Diarrhea, jonathan for C. Diff 3. Hypoxic / Hypercapnic respiratory failure : resolved on room air 4. Essential hypertension. controlled. 5. End-stage renal disease on hemodialysis. HD per nephrology 6. Type 2 diabetes - increase insulins Subjective 24 Hr Interval Summary Free Text/Dictation diarrhea started yesterday. Cough but no shortness of breath Exam/Review of Systems Vital Signs Vitals Vital Signs Date Time Temp Pulse Resp B/P Pulse Ox O2 Delivery O2 Flow Rate FiO2 10/31/16 09:36 70 18 94 21 10/31/16 07:53 98.6 118/56 10/30/16 08:00 Nasal Cannula 10/30/16 05:25 4.0 Intake and Output 10/30/16 10/30/16 10/31/16 15:00 23:00 07:00 Intake Total 750 ml 1260 ml 680 ml Output Total 2500 ml 1 ml Balance -1750 ml 1259 ml 680 ml Exam Constitutional: alert, oriented, well developed Psych: nl mood/affect, no complaints Head: atraumatic, normocephalic Eyes: EOMI, nl conjunctiva, nl lids ENMT: nl external ears & nose, nl lips & teeth, nl nasal mucosa & septum Neck: non-tender, supple Respiratory: clear to auscultation, normal air movement, No congested cough, No crackles/rales, No diminished breath sounds, No intercostal retraction, No labored breathing, No other, No respirations, No tactile fremitus, No wheezing Cardiovascular: nl pulses, regular rate and rhythm, No S3, No S4, No bruits, No diastolic murmur, No edema, No gallop, No irregular rhythm, No jugular venous distention (JVD), No murmurs/extra sounds, No other, No rub, No systolic murmur Gastrointestinal: nl liver, spleen, non-tender, soft, No ascites, No bowel sounds, No distended, No firm, No hepatomegaly, No mass , No other, No rebound or guarding, No splenomegaly, No surgical scars, No tender Musculoskeletal: nl extremities to inspection Extremities: normal pulses, No calf tenderness, No clubbing, No cyanosis, No edema, No other, No palpable cord, No pitting pedal edema, No tenderness Neurological: LACQUER SPRAYER II-XII intact, nl mental status, nl speech, nl strength Skin: nl turgor, rash or lesions Lymph: nl lymph nodes Results Result Diagram: 10/31/16 0657 10/31/16 0657 Results 24 hrs Laboratory Tests Test 10/30/16 16:43 10/30/16 20:36 10/31/16 06:57 10/31/16 08:53 Bedside Glucose 337 H 325 H 185 Anion Gap 24 H Basophils # 0.0 Basophils % 0.1 Blood Morphology Comment Blood Urea Nitrogen 77 H Calcium Level 7.2 L Carbon Dioxide Level 26 Chloride Level 96 L Creatinine 6.40 H Eosinophils # 0.0 Eosinophils % 0.3 Glucose Level 153 # Hematocrit 36.4 L Hemoglobin 12.2 Lymphocytes # 2.0 Lymphocytes % 16.8 Mean Corpuscular Hemoglobin 30.6 Mean Corpuscular Hemoglobin Concent 33.4 Mean Corpuscular Volume 91.8 Mean Platelet Volume 8.9 Monocytes # 0.6 Monocytes % 5.1 Neutrophils # 9.1 H Neutrophils % 77.7 H Nucleated Red Blood Cells # 0.0 Nucleated Red Blood Cells % 0.0 Platelet Count 208 Potassium Level 3.5 Red Blood Count 3.97 L Red Cell Distribution Width 16.0 H Sodium Level 142 White Blood Count 11.7 #H Test 10/31/16 12:26 Bedside Glucose 254 H Medications Medications Current Medications Ondansetron HCl (Zofran Inj) 4 mg Q6H PRN IV NAUSEA AND/OR VOMITING; Start at 10:30 Morphine Sulfate (morphine) 2 mg Q4H PRN IV SEVERE PAIN LEVEL 7-10; Start 10/26 at 10:30 Docusate Sodium (Colace) 100 mg Q12H PRN PO CONSTIPATION; Start 10/26/16 at 10: 30 Magnesium Hydroxide (Milk Of Mag) 30 ml Q24H PRN PO CONSTIPATION; Start at 10:30 Heparin Sodium (Porcine) (Heparin (5000 Units/0.5 ml)) 5,000 unit Q12 SC Last administered on 10/31/16t 09:10; Admin Dose 5,000 UNIT; Start 10/26/16 at 21:00 Lorazepam (Ativan) 0.5 mg Q6H PRN IV ANXIETY Last administered on 10/26/16 12: 29; Admin Dose 0.5 MG; Start 10/26/16 at 10:30 Hydralazine HCl (Apresoline) 10 mg Q6H PRN IV ELEVATED BLOOD PRESSURE Last administered on 10/29/16 12:59; Admin Dose 10 MG; Start 10/26/16 at 10:30 Clonidine (Catapres) 0.1 mg Q6H PRN PO ELEVATED BLOOD PRESSURE Last administered on 10/29/16 16:00; Admin Dose 0.1 MG; Start 10/26/16 at 10:30 Nitroglycerin (Nitroglycerin (Sl Tab) 0.4 Mg) 1 tab Q5M PRN SL ANGINA; Start at 10:30 Amlodipine Besylate (Norvasc) 5 mg BID PO Last administered on 10/31/16 09:05 ; Admin Dose 5 MG; Start 10/26/16 at 21:00 Atenolol (Tenormin) 50 mg BID PO Last administered on 10/31/16 09:05; Admin Dose 50 MG; Start 10/26/16 at 21:00 Benazepril HCl (Lotensin) 40 mg DAILY PO Last administered on 10/31/16 09:04; Admin Dose 40 MG; Start 10/27/16 at 09:00 Furosemide (Lasix) 80 mg BID PO Last administered on 10/31/16 09:05; Admin Dose 80 MG; Start 10/26/16 at 21:00 Tramadol HCl (Ultram) 50 mg Q12H PRN PO PAIN Last administered on 10/27/16 16: 47; Admin Dose 50 MG; Start 10/26/16 at 10:30 Guaifenesin (Robitussin Liquid Cup) 200 mg Q4H PRN PO COUGH Last administered on 10/31/16 09:12; Admin Dose 200 MG; Start 10/28/16 at 12:30 Phenol (Cepastat Lozenge) 1 lozenge Q1H PRN MT COUGH Last administered on 09:11; Admin Dose 1 LOZENGE; Start 10/28/16 at 12:30 Zolpidem Tartrate (Ambien) 5 mg HS PRN PO INSOMNIA Last administered on 22:31; Admin Dose 5 MG; Start 10/28/16 at 19:30 Miscellaneous Information 1 ea NOTE XX ; Start 10/29/16 at 11:30 Glucose (Glutose) 15 gm Q15M PRN PO DECREASED GLUCOSE; Start 10/29/16 at 11:30 Glucose (Glutose) 22.5 gm Q15M PRN PO DECREASED GLUCOSE; Start 10/29/16 at 11: 30 Dextrose (D50w Syringe) 25 ml Q15M PRN IV DECREASED GLUCOSE; Start 10/29/16 at 11:30 Dextrose (D50w Syringe) 50 ml Q15M PRN IV DECREASED GLUCOSE; Start 10/29/16 at 11:30 Glucagon (Glucagen) 1 mg Q15M PRN IM DECREASED GLUCOSE; Start 10/29/16 at 11:30 Glucose 15 gm 15 gm Q15M PRN BUCCAL DECREASED GLUCOSE; Start 10/29/16 at 11:30 Azithromycin (Zithromax 500mg/ NS (Pmx)) 250 ml @ 250 mls/hr Q24H IVPB Last administered on 10/31/16 09:07; Admin Dose 250 MLS/HR; Start 10/30/16 at 09:00 Salmeterol Xinafoate/ Fluticasone (Advair 250/50 Diskus) 1 inh BID INH Last administered on 10/31/16 09:04; Admin Dose 1 INH; Start 10/29/16 at 16:00 Pantoprazole (Protonix Tab) 40 mg DAILY@06 PO Last administered on 10/31/16 05 :41; Admin Dose 40 MG; Start 10/30/16 at 06:00 Insulin Glargine (Lantus) 20 unit DAILY@20 SC Last administered on 10/30/16 20 :38; Admin Dose 20 UNIT; Start 10/30/16 at 20:00 Ibuprofen (Motrin) 400 mg Q6H PRN PO PAIN OR TEMP ABOVE 38C; Start 10/31/16 at 13:30 Calcitriol (Rocaltrol) 0.25 mcg DAILY PO ; Start 10/31/16 at 14:30 TABITHA COATES MD Oct 31, 2016 15:58
[2016-10-31] MEDS: CALCIUM ACETATE 667 MG CAP PO SCH (17:50)
[2016-10-31] MEDS: CALCITRIOL 0.25 MCG CAP PO SCH (17:55)
[2016-10-31] MEDS: INSULIN GLARGINE [LANtus] 3 ML PEN SC SCH (20:10)
[2016-11-01] MEDS: GUAIFENESIN 20 MG/ML 5ML CUP PO PRN (01:51)
[2016-11-01] MEDS: PANTOPRAZOLE (EC) 40 MG TAB PO SCH (06:16)
[2016-11-01 08:00] VITALS: BP 101/51; RESP 22
[2016-11-01 08:12] LABS: POTASSIUM 4.1 mmol/L (3.5-5.1)
[2016-11-01 08:14] LABS: BASOPHILS % 0.3 % (0.0-2.0); CREATININE 6.58 mg/dl (0.44-1.00); EOSINOPHILS # 0.1 10^3/ul (0.0-0.5); EOSINOPHILS % 0.9 % (0.0-7.0); HEMATOCRIT 37.7 % (37.0-47.0); HEMOGLOBIN 11.7 g/dl (12.0-16.0); LYMPHOCYTES # 1.8 10^3/ul (0.8-2.9); LYMPHOCYTES % 15.9 % (15.0-51.0); MEAN CORPUSCULAR HEMOGLOBIN 29.4 pg (29.0-33.0); MEAN CORPUSCULAR VOLUME 94.7 fl (82.0-101.0); MEAN PLATELET VOLUME 10.9 fl (7.4-10.4); MONOCYTE # 0.6 10^3/ul (0.3-0.9); NEUTROPHIL # 8.8 10^3/ul (1.6-7.5); NEUTROPHILS % 76.7 % (39.0-77.0); PLATELET COUNT 169 10^3/UL (140-415); RED BLOOD COUNT 3.98 10^6/ul (4.20-5.40); RED CELL DISTRIBUTION WIDTH 14.6 % (11.5-14.5); WHITE BLOOD COUNT 11.5 10^3/ul (4.8-10.8)
[2016-11-01 08:15] LABS: CALCIUM 7.5 mg/dl (8.4-10.2)
[2016-11-01] MEDS: CALCIUM ACETATE 667 MG CAP PO SCH ×3 (08:21→17:15)
[2016-11-01] MEDS: CALCITRIOL 0.25 MCG CAP PO SCH (08:21)
[2016-11-01] MEDS: FUROSEMIDE 40 MG TAB PO SCH ×2 (08:21→20:52)
[2016-11-01] MEDS: SALMETEROL/FLUTICASONE 250/50 INHA INH SCH ×2 (08:22→20:50)
[2016-11-01] MEDS: AZITHROMYCIN 500MG/NS (PMX) 250 ML IVPB SCH (08:22)
[2016-11-01] MEDS: INSULIN ASPART [NOVOLOG] 3 ML PEN SC SCH ×3 (08:24→17:18)
[2016-11-01] MEDS: ATENOLOL 50 MG TAB PO SCH ×2 (08:25→20:52)
[2016-11-01] MEDS: AMLODIPINE 5 MG TAB PO SCH ×2 (08:25→20:52)
[2016-11-01] MEDS: BENAZEPRIL 40 MG TAB PO SCH (08:25)
[2016-11-01] MEDS: HEPARIN 5,000 UNIT/0.5 ML SYG SC SCH ×2 (08:25→20:54)
[2016-11-01] MEDS: traMADol 50 MG TAB PO PRN (08:41)
[2016-11-01] MEDS: ALBUTEROL/IPRATROPIUM (NEB) 3 ML AMP HHN SCH ×4 (09:14→20:28)
--- NOTE | 2016-11-01 10:40 | CONS ---
Date/Time of Note Date/Time of Note DATE: 11/01/16 TIME: 10:37 Assessment/Plan Assessment/Plan Chief Complaint/Hosp Course 1. ESRD , she is scheduled for hemodialysis treatment tomorrow . she usually dialyses M W . 2. pleuritic chest pain , seems improved , will order some Motrin prn . 3. bronchitis, she is on steroids and cough and wheezing have improved , CXR done yesterday shows that CHF has resolved 4. DM 5. HTN Problems: Consultation Date/Type/Reason Admit Date/Time Oct 26, 2016 at 08:46 Type of Consultation: renal 24 HR Interval Summary Free Text/Dictation she is feeling better . less back and pleuritic chest pain . She is coughing less . Exam/Review of Systems Vital Signs Vitals Vital Signs Date Time Temp Pulse Resp B/P Pulse Ox O2 Delivery O2 Flow Rate FiO2 11/01/16 09:16 72 20 95 21 11/01/16 08:00 98.6 101/51 10/30/16 08:00 Nasal Cannula 10/30/16 05:25 4.0 Intake and Output 10/31/16 10/31/16 11/01/16 15:00 23:00 07:00 Intake Total 250 ml 1760 ml 950 ml Output Total 2000 ml Balance 250 ml -240 ml 950 ml Exam Constitutional: alert, oriented, well developed Respiratory: clear to auscultation, normal air movement Cardiovascular: regular rate and rhythm Musculoskeletal: nl extremities to inspection Results Result Diagram: 11/01/16 0724 11/01/16 0724 Results 24 hrs Laboratory Tests Test 10/31/16 12:26 10/31/16 17:49 10/31/16 20:08 11/01/16 07:24 Bedside Glucose 254 H 157 225 H Anion Gap 25 H Basophils # 0.0 Basophils % 0.3 Blood Urea Nitrogen 79 H Calcium Level 7.5 L Carbon Dioxide Level 24 Chloride Level 96 L Creatinine 6.58 H Eosinophils # 0.1 Eosinophils % 0.9 Glucose Level 211 Hematocrit 37.7 Hemoglobin 11.7 L Lymphocytes # 1.8 Lymphocytes % 15.9 Mean Corpuscular Hemoglobin 29.4 Mean Corpuscular Hemoglobin Concent 31.0 L Mean Corpuscular Volume 94.7 Mean Platelet Volume 10.9 #H Monocytes # 0.6 Monocytes % 5.0 Neutrophils # 8.8 H Neutrophils % 76.7 Nucleated Red Blood Cells # 0.0 Nucleated Red Blood Cells % 0.0 Platelet Count 169 Potassium Level 4.1 Red Blood Count 3.98 L Red Cell Distribution Width 14.6 H Sodium Level 141 White Blood Count 11.5 H Test 11/01/16 08:19 Bedside Glucose 236 H Medications Medications Current Medications Ondansetron HCl (Zofran Inj) 4 mg Q6H PRN IV NAUSEA AND/OR VOMITING; Start at 10:30 Morphine Sulfate (morphine) 2 mg Q4H PRN IV SEVERE PAIN LEVEL 7-10; Start 10/26 at 10:30 Docusate Sodium (Colace) 100 mg Q12H PRN PO CONSTIPATION; Start 10/26/16 at 10: 30 Magnesium Hydroxide (Milk Of Mag) 30 ml Q24H PRN PO CONSTIPATION; Start at 10:30 Heparin Sodium (Porcine) (Heparin (5000 Units/0.5 ml)) 5,000 unit Q12 SC Last administered on 11/01/16 08:25; Admin Dose 5,000 UNIT; Start 10/26/16 at 21:00 Lorazepam (Ativan) 0.5 mg Q6H PRN IV ANXIETY Last administered on 10/26/16 12: 29; Admin Dose 0.5 MG; Start 10/26/16 at 10:30 Hydralazine HCl (Apresoline) 10 mg Q6H PRN IV ELEVATED BLOOD PRESSURE Last administered on 10/29/16 12:59; Admin Dose 10 MG; Start 10/26/16 at 10:30 Clonidine (Catapres) 0.1 mg Q6H PRN PO ELEVATED BLOOD PRESSURE Last administered on 10/29/16 16:00; Admin Dose 0.1 MG; Start 10/26/16 at 10:30 Nitroglycerin (Nitroglycerin (Sl Tab) 0.4 Mg) 1 tab Q5M PRN SL ANGINA; Start at 10:30 Amlodipine Besylate (Norvasc) 5 mg BID PO Last administered on 10/31/16 20:19 ; Admin Dose 5 MG; Start 10/26/16 at 21:00 Atenolol (Tenormin) 50 mg BID PO Last administered on 10/31/16 20:15; Admin Dose 50 MG; Start 10/26/16 at 21:00 Benazepril HCl (Lotensin) 40 mg DAILY PO Last administered on 10/31/16 09:04; Admin Dose 40 MG; Start 10/27/16 at 09:00 Furosemide (Lasix) 80 mg BID PO Last administered on 11/01/16 08:21; Admin Dose 80 MG; Start 10/26/16 at 21:00 Tramadol HCl (Ultram) 50 mg Q12H PRN PO PAIN Last administered on 11/01/16 08: 41; Admin Dose 50 MG; Start 10/26/16 at 10:30 Guaifenesin (Robitussin Liquid Cup) 200 mg Q4H PRN PO COUGH Last administered on 11/01/16 01:51; Admin Dose 200 MG; Start 10/28/16 at 12:30 Phenol (Cepastat Lozenge) 1 lozenge Q1H PRN MT COUGH Last administered on 09:11; Admin Dose 1 LOZENGE; Start 10/28/16 at 12:30 Zolpidem Tartrate (Ambien) 5 mg HS PRN PO INSOMNIA Last administered on 22:31; Admin Dose 5 MG; Start 10/28/16 at 19:30 Miscellaneous Information 1 ea NOTE XX ; Start 10/29/16 at 11:30 Glucose (Glutose) 15 gm Q15M PRN PO DECREASED GLUCOSE; Start 10/29/16 at 11:30 Glucose (Glutose) 22.5 gm Q15M PRN PO DECREASED GLUCOSE; Start 10/29/16 at 11: 30 Dextrose (D50w Syringe) 25 ml Q15M PRN IV DECREASED GLUCOSE; Start 10/29/16 at 11:30 Dextrose (D50w Syringe) 50 ml Q15M PRN IV DECREASED GLUCOSE; Start 10/29/16 at 11:30 Glucagon (Glucagen) 1 mg Q15M PRN IM DECREASED GLUCOSE; Start 10/29/16 at 11:30 Glucose 15 gm 15 gm Q15M PRN BUCCAL DECREASED GLUCOSE; Start 10/29/16 at 11:30 Azithromycin (Zithromax 500mg/ NS (Pmx)) 250 ml @ 250 mls/hr Q24H IVPB Last administered on 11/01/16 08:22; Admin Dose 250 MLS/HR; Start 10/30/16 at 09:00 Salmeterol Xinafoate/ Fluticasone (Advair 250/50 Diskus) 1 inh BID INH Last administered on 11/01/16 08:22; Admin Dose 1 INH; Start 10/29/16 at 16:00 Pantoprazole (Protonix Tab) 40 mg DAILY@06 PO Last administered on 11/01/16 06 :16; Admin Dose 40 MG; Start 10/30/16 at 06:00 Ibuprofen (Motrin) 400 mg Q6H PRN PO PAIN OR TEMP ABOVE 38C; Start 10/31/16 at 13:30 Calcitriol (Rocaltrol) 0.25 mcg DAILY PO Last administered on 11/01/16 08:21; Admin Dose 0.25 MCG; Start 10/31/16 at 14:30 Insulin Glargine (Lantus) 22 unit DAILY@20 SC Last administered on 10/31/16 20 :10; Admin Dose 22 UNIT; Start 10/31/16 at 20:00 WILVER DAVIES MD Nov 01, 2016 10:40
--- NOTE | 2016-11-01 12:03 | CONS ---
Date/Time of Note Date/Time of Note DATE: 11/01/16 TIME: 12:00 Assessment/Plan Assessment/Plan Additional Assessment/Plan Assessment and recommendations; 1. Patient admitted with asthma exacerbation with acute bronchitis. Still with persistent symptoms. 2. End-stage renal disease, on hemodialysis. 3. Diabetes. 4. Hypertension. Add Prednisone 10 mg twice daily. Continue current supportive care. Consultation Date/Type/Reason Admit Date/Time Oct 26, 2016 at 08:46 Type of Consultation: Pulmonary 24 HR Interval Summary Free Text/Dictation Patient condition is improving. However still complains of coughing without any sputum production. Denies any wheezing. General examination; elderly lady sitting in chair by bedside. Occasional bouts of coughing were seen. Currently in no distress. Awake and alert. Exam/Review of Systems Vital Signs Vitals Vital Signs Date Time Temp Pulse Resp B/P Pulse Ox O2 Delivery O2 Flow Rate FiO2 11/01/16 09:16 72 20 95 21 11/01/16 08:00 98.6 101/51 10/30/16 08:00 Nasal Cannula 10/30/16 05:25 4.0 Intake and Output 10/31/16 10/31/16 11/01/16 15:00 23:00 07:00 Intake Total 250 ml 1760 ml 950 ml Output Total 2000 ml Balance 250 ml -240 ml 950 ml Exam H EENT examination; supple neck, no JVD. No lymphadenopathy. Midline trachea. Pharynx is clear. She has a few remaining teeth. Chest examination; diminished but clear breath sounds bilaterally. Mild wheezing heard during bouts of coughing. S1-S2 audible, no murmurs. Regular rhythm. Abdomen examination; soft, no organomegaly. Bowel sounds audible. Extremity examination; no peripheral edema. INTERIOR DESIGN CONSULTANT examination; no focal deficit. Results Result Diagram: 11/01/16 0724 11/01/16 0724 Results 24 hrs Laboratory Tests Test 10/31/16 12:26 10/31/16 17:49 10/31/16 20:08 11/01/16 07:24 Bedside Glucose 254 H 157 225 H Anion Gap 25 H Basophils # 0.0 Basophils % 0.3 Blood Urea Nitrogen 79 H Calcium Level 7.5 L Carbon Dioxide Level 24 Chloride Level 96 L Creatinine 6.58 H Eosinophils # 0.1 Eosinophils % 0.9 Glucose Level 211 Hematocrit 37.7 Hemoglobin 11.7 L Lymphocytes # 1.8 Lymphocytes % 15.9 Mean Corpuscular Hemoglobin 29.4 Mean Corpuscular Hemoglobin Concent 31.0 L Mean Corpuscular Volume 94.7 Mean Platelet Volume 10.9 #H Monocytes # 0.6 Monocytes % 5.0 Neutrophils # 8.8 H Neutrophils % 76.7 Nucleated Red Blood Cells # 0.0 Nucleated Red Blood Cells % 0.0 Phosphorus Level 7.1 H Platelet Count 169 Potassium Level 4.1 Red Blood Count 3.98 L Red Cell Distribution Width 14.6 H Sodium Level 141 White Blood Count 11.5 H Test 11/01/16 08:19 Bedside Glucose 236 H Medications Medications Current Medications Ondansetron HCl (Zofran Inj) 4 mg Q6H PRN IV NAUSEA AND/OR VOMITING; Start at 10:30 Morphine Sulfate (morphine) 2 mg Q4H PRN IV SEVERE PAIN LEVEL 7-10; Start 10/26 at 10:30 Docusate Sodium (Colace) 100 mg Q12H PRN PO CONSTIPATION; Start 10/26/16 at 10: 30 Magnesium Hydroxide (Milk Of Mag) 30 ml Q24H PRN PO CONSTIPATION; Start at 10:30 Heparin Sodium (Porcine) (Heparin (5000 Units/0.5 ml)) 5,000 unit Q12 SC Last administered on 11/01/16 08:25; Admin Dose 5,000 UNIT; Start 10/26/16 at 21:00 Lorazepam (Ativan) 0.5 mg Q6H PRN IV ANXIETY Last administered on 10/26/16 12: 29; Admin Dose 0.5 MG; Start 10/26/16 at 10:30 Hydralazine HCl (Apresoline) 10 mg Q6H PRN IV ELEVATED BLOOD PRESSURE Last administered on 10/29/16 12:59; Admin Dose 10 MG; Start 10/26/16 at 10:30 Clonidine (Catapres) 0.1 mg Q6H PRN PO ELEVATED BLOOD PRESSURE Last administered on 10/29/16 16:00; Admin Dose 0.1 MG; Start 10/26/16 at 10:30 Nitroglycerin (Nitroglycerin (Sl Tab) 0.4 Mg) 1 tab Q5M PRN SL ANGINA; Start at 10:30 Amlodipine Besylate (Norvasc) 5 mg BID PO Last administered on 10/31/16 20:19 ; Admin Dose 5 MG; Start 10/26/16 at 21:00 Atenolol (Tenormin) 50 mg BID PO Last administered on 10/31/16 20:15; Admin Dose 50 MG; Start 10/26/16 at 21:00 Benazepril HCl (Lotensin) 40 mg DAILY PO Last administered on 10/31/16 09:04; Admin Dose 40 MG; Start 10/27/16 at 09:00 Furosemide (Lasix) 80 mg BID PO Last administered on 11/01/16 08:21; Admin Dose 80 MG; Start 10/26/16 at 21:00 Tramadol HCl (Ultram) 50 mg Q12H PRN PO PAIN Last administered on 11/01/16 08: 41; Admin Dose 50 MG; Start 10/26/16 at 10:30 Guaifenesin (Robitussin Liquid Cup) 200 mg Q4H PRN PO COUGH Last administered on 11/01/16 01:51; Admin Dose 200 MG; Start 10/28/16 at 12:30 Phenol (Cepastat Lozenge) 1 lozenge Q1H PRN MT COUGH Last administered on 09:11; Admin Dose 1 LOZENGE; Start 10/28/16 at 12:30 Zolpidem Tartrate (Ambien) 5 mg HS PRN PO INSOMNIA Last administered on 22:31; Admin Dose 5 MG; Start 10/28/16 at 19:30 Miscellaneous Information 1 ea NOTE XX ; Start 10/29/16 at 11:30 Glucose (Glutose) 15 gm Q15M PRN PO DECREASED GLUCOSE; Start 10/29/16 at 11:30 Glucose (Glutose) 22.5 gm Q15M PRN PO DECREASED GLUCOSE; Start 10/29/16 at 11: 30 Dextrose (D50w Syringe) 25 ml Q15M PRN IV DECREASED GLUCOSE; Start 10/29/16 at 11:30 Dextrose (D50w Syringe) 50 ml Q15M PRN IV DECREASED GLUCOSE; Start 10/29/16 at 11:30 Glucagon (Glucagen) 1 mg Q15M PRN IM DECREASED GLUCOSE; Start 10/29/16 at 11:30 Glucose 15 gm 15 gm Q15M PRN BUCCAL DECREASED GLUCOSE; Start 10/29/16 at 11:30 Azithromycin (Zithromax 500mg/ NS (Pmx)) 250 ml @ 250 mls/hr Q24H IVPB Last administered on 11/01/16 08:22; Admin Dose 250 MLS/HR; Start 10/30/16 at 09:00 Salmeterol Xinafoate/ Fluticasone (Advair 250/50 Diskus) 1 inh BID INH Last administered on 11/01/16 08:22; Admin Dose 1 INH; Start 10/29/16 at 16:00 Pantoprazole (Protonix Tab) 40 mg DAILY@06 PO Last administered on 11/01/16 06 :16; Admin Dose 40 MG; Start 10/30/16 at 06:00 Ibuprofen (Motrin) 400 mg Q6H PRN PO PAIN OR TEMP ABOVE 38C; Start 10/31/16 at 13:30 Calcitriol (Rocaltrol) 0.25 mcg DAILY PO Last administered on 11/01/16 08:21; Admin Dose 0.25 MCG; Start 10/31/16 at 14:30 Insulin Glargine (Lantus) 22 unit DAILY@20 SC Last administered on 10/31/16 20 :10; Admin Dose 22 UNIT; Start 10/31/16 at 20:00 EVANGELIST NUGENT Nov 01, 2016 12:03
[2016-11-01] MEDS: predniSONE 20 MG TAB NGT SCH (12:29)
--- NOTE | 2016-11-01 15:00 | PN ---
Date/Time of Note Date/Time of Note DATE: 11/01/16 TIME: 14:53 Assessment/Plan VTE Prophylaxis VTE Prophylaxis Intervention: heparin Lines/Catheters IV [facility]from [facility] Urinary Cath still in place: No Assessment/Plan Assessment/Plan 1. Asthma exacerbation with acute bronchitis/pneumonia, improving, on zithromax , add prednisone 11/01/2016 2. Diarrhea, stool for C. Diff 3. Hypoxic / Hypercapnic respiratory failure : resolved on room air 4. Essential hypertension. controlled. 5. End-stage renal disease on hemodialysis. HD per nephrology 6. Type 2 diabetes - increase insulins 9. DVT prophylaxis: heparin Subjective 24 Hr Interval Summary Free Text/Dictation feels better but still cough Exam/Review of Systems Vital Signs Vitals Vital Signs Date Time Temp Pulse Resp B/P Pulse Ox O2 Delivery O2 Flow Rate FiO2 11/01/16 13:07 74 21 96 21 11/01/16 08:00 98.6 101/51 10/30/16 08:00 Nasal Cannula 10/30/16 05:25 4.0 Intake and Output 10/31/16 10/31/16 11/01/16 15:00 23:00 07:00 Intake Total 250 ml 1760 ml 950 ml Output Total 2000 ml Balance 250 ml -240 ml 950 ml Exam Constitutional: alert, oriented, well developed Psych: nl mood/affect, no complaints Head: atraumatic, normocephalic Eyes: EOMI, PERRL, nl conjunctiva, nl lids ENMT: nl external ears & nose, nl lips & teeth Neck: non-tender, supple Respiratory: clear to auscultation, normal air movement, No congested cough, No crackles/rales, No diminished breath sounds, No intercostal retraction, No labored breathing, No other, No respirations, No tactile fremitus, No wheezing Cardiovascular: nl pulses, regular rate and rhythm, No S3, No S4, No bruits, No diastolic murmur, No edema, No gallop, No irregular rhythm, No jugular venous distention (JVD), No murmurs/extra sounds, No other, No rub, No systolic murmur Gastrointestinal: nl liver, spleen, non-tender, soft, No ascites, No bowel sounds, No distended, No firm, No hepatomegaly, No mass , No other, No rebound or guarding, No splenomegaly, No surgical scars, No tender Musculoskeletal: nl extremities to inspection Extremities: normal pulses, No calf tenderness, No clubbing, No cyanosis, No edema, No other, No palpable cord, No pitting pedal edema, No tenderness Neurological: DEPUTY DIRECTOR II-XII intact, nl mental status, nl speech, nl strength Skin: nl turgor Lymph: nl lymph nodes Results Result Diagram: 11/01/16 0724 11/01/16 0724 Results 24 hrs Laboratory Tests Test 10/31/16 17:49 10/31/16 20:08 11/01/16 07:24 11/01/16 08:19 Bedside Glucose 157 225 H 236 H Anion Gap 25 H Basophils # 0.0 Basophils % 0.3 Blood Urea Nitrogen 79 H Calcium Level 7.5 L Carbon Dioxide Level 24 Chloride Level 96 L Creatinine 6.58 H Eosinophils # 0.1 Eosinophils % 0.9 Glucose Level 211 Hematocrit 37.7 Hemoglobin 11.7 L Lymphocytes # 1.8 Lymphocytes % 15.9 Mean Corpuscular Hemoglobin 29.4 Mean Corpuscular Hemoglobin Concent 31.0 L Mean Corpuscular Volume 94.7 Mean Platelet Volume 10.9 #H Monocytes # 0.6 Monocytes % 5.0 Neutrophils # 8.8 H Neutrophils % 76.7 Nucleated Red Blood Cells # 0.0 Nucleated Red Blood Cells % 0.0 Phosphorus Level 7.1 H Platelet Count 169 Potassium Level 4.1 Red Blood Count 3.98 L Red Cell Distribution Width 14.6 H Sodium Level 141 White Blood Count 11.5 H Test 11/01/16 12:24 Bedside Glucose 241 H Medications Medications Current Medications Ondansetron HCl (Zofran Inj) 4 mg Q6H PRN IV NAUSEA AND/OR VOMITING; Start at 10:30 Morphine Sulfate (morphine) 2 mg Q4H PRN IV SEVERE PAIN LEVEL 7-10; Start 10/26 at 10:30 Docusate Sodium (Colace) 100 mg Q12H PRN PO CONSTIPATION; Start 10/26/16 at 10: 30 Magnesium Hydroxide (Milk Of Mag) 30 ml Q24H PRN PO CONSTIPATION; Start at 10:30 Heparin Sodium (Porcine) (Heparin (5000 Units/0.5 ml)) 5,000 unit Q12 SC Last administered on 11/01/16 08:25; Admin Dose 5,000 UNIT; Start 10/26/16 at 21:00 Lorazepam (Ativan) 0.5 mg Q6H PRN IV ANXIETY Last administered on 10/26/16 12: 29; Admin Dose 0.5 MG; Start 10/26/16 at 10:30 Hydralazine HCl (Apresoline) 10 mg Q6H PRN IV ELEVATED BLOOD PRESSURE Last administered on 10/29/16 12:59; Admin Dose 10 MG; Start 10/26/16 at 10:30 Clonidine (Catapres) 0.1 mg Q6H PRN PO ELEVATED BLOOD PRESSURE Last administered on 10/29/16 16:00; Admin Dose 0.1 MG; Start 10/26/16 at 10:30 Nitroglycerin (Nitroglycerin (Sl Tab) 0.4 Mg) 1 tab Q5M PRN SL ANGINA; Start at 10:30 Amlodipine Besylate (Norvasc) 5 mg BID PO Last administered on 10/31/16 20:19 ; Admin Dose 5 MG; Start 10/26/16 at 21:00 Atenolol (Tenormin) 50 mg BID PO Last administered on 10/31/16 20:15; Admin Dose 50 MG; Start 10/26/16 at 21:00 Benazepril HCl (Lotensin) 40 mg DAILY PO Last administered on 10/31/16 09:04; Admin Dose 40 MG; Start 10/27/16 at 09:00 Furosemide (Lasix) 80 mg BID PO Last administered on 11/01/16 08:21; Admin Dose 80 MG; Start 10/26/16 at 21:00 Tramadol HCl (Ultram) 50 mg Q12H PRN PO PAIN Last administered on 11/01/16 08: 41; Admin Dose 50 MG; Start 10/26/16 at 10:30 Guaifenesin (Robitussin Liquid Cup) 200 mg Q4H PRN PO COUGH Last administered on 11/01/16 01:51; Admin Dose 200 MG; Start 10/28/16 at 12:30 Phenol (Cepastat Lozenge) 1 lozenge Q1H PRN MT COUGH Last administered on 09:11; Admin Dose 1 LOZENGE; Start 10/28/16 at 12:30 Zolpidem Tartrate (Ambien) 5 mg HS PRN PO INSOMNIA Last administered on 22:31; Admin Dose 5 MG; Start 10/28/16 at 19:30 Miscellaneous Information 1 ea NOTE XX ; Start 10/29/16 at 11:30 Glucose (Glutose) 15 gm Q15M PRN PO DECREASED GLUCOSE; Start 10/29/16 at 11:30 Glucose (Glutose) 22.5 gm Q15M PRN PO DECREASED GLUCOSE; Start 10/29/16 at 11: 30 Dextrose (D50w Syringe) 25 ml Q15M PRN IV DECREASED GLUCOSE; Start 10/29/16 at 11:30 Dextrose (D50w Syringe) 50 ml Q15M PRN IV DECREASED GLUCOSE; Start 10/29/16 at 11:30 Glucagon (Glucagen) 1 mg Q15M PRN IM DECREASED GLUCOSE; Start 10/29/16 at 11:30 Glucose 15 gm 15 gm Q15M PRN BUCCAL DECREASED GLUCOSE; Start 10/29/16 at 11:30 Azithromycin (Zithromax 500mg/ NS (Pmx)) 250 ml @ 250 mls/hr Q24H IVPB Last administered on 11/01/16 08:22; Admin Dose 250 MLS/HR; Start 10/30/16 at 09:00 Salmeterol Xinafoate/ Fluticasone (Advair 250/50 Diskus) 1 inh BID INH Last administered on 11/01/16 08:22; Admin Dose 1 INH; Start 10/29/16 at 16:00 Pantoprazole (Protonix Tab) 40 mg DAILY@06 PO Last administered on 11/01/16 06 :16; Admin Dose 40 MG; Start 10/30/16 at 06:00 Ibuprofen (Motrin) 400 mg Q6H PRN PO PAIN OR TEMP ABOVE 38C; Start 10/31/16 at 13:30 Calcitriol (Rocaltrol) 0.25 mcg DAILY PO Last administered on 11/01/16 08:21; Admin Dose 0.25 MCG; Start 10/31/16 at 14:30 Insulin Glargine (Lantus) 22 unit DAILY@20 SC Last administered on 10/31/16 20 :10; Admin Dose 22 UNIT; Start 10/31/16 at 20:00 Prednisone (Prednisone) 20 mg DAILY NGT Last administered on 11/01/16t 12:29; Admin Dose 20 MG; Start 11/01/16 at 13:00 TABITHA COATES MD Nov 01, 2016 15:00
[2016-11-01 20:00] VITALS: BP 109/53; RESP 19
[2016-11-01] MEDS: INSULIN GLARGINE [LANtus] 3 ML PEN SC SCH (20:50)
[2016-11-01] MEDS ORDERED: INSULIN ASPART [NOVOLOG] 3 ML PEN SC ONE (21:30)
[2016-11-02] VITALS (9 sets, daily range): BP systolic 114–143; BP diastolic 55–68; PULSE 68–75; RESP 18
[2016-11-02] MEDS: ACCUCHECK XX SCH (02:31)
[2016-11-02] MEDS: PANTOPRAZOLE (EC) 40 MG TAB PO SCH (06:15)
[2016-11-02 08:22] LABS: ADD SCAN DIFF NO
[2016-11-02 08:27] LABS: BASOPHILS % 0.2 % (0.0-2.0); EOSINOPHILS # 0.1 10^3/ul (0.0-0.5); HEMATOCRIT 33.3 % (37.0-47.0); HEMOGLOBIN 10.8 g/dl (12.0-16.0); LYMPHOCYTES # 2.3 10^3/ul (0.8-2.9); LYMPHOCYTES % 18.1 % (15.0-51.0); MEAN CORPUSCULAR HEMOGLOBIN 30.1 pg (29.0-33.0); MEAN CORPUSCULAR HGB CONC 32.4 g/dl (32.0-37.0); MEAN CORPUSCULAR VOLUME 92.8 fl (82.0-101.0); MEAN PLATELET VOLUME 10.3 fl (7.4-10.4); MONOCYTE # 0.5 10^3/ul (0.3-0.9); MONOCYTES % 3.9 % (0.0-11.0); NEUTROPHIL # 9.5 10^3/ul (1.6-7.5); NEUTROPHILS % 75.8 % (39.0-77.0); PLATELET COUNT 155 10^3/UL (140-415); RED BLOOD COUNT 3.59 10^6/ul (4.20-5.40); RED CELL DISTRIBUTION WIDTH 14.2 % (11.5-14.5); WHITE BLOOD COUNT 12.5 10^3/ul (4.8-10.8)
[2016-11-02 08:55] LABS: CREATININE 8.74 mg/dl (0.44-1.00)
[2016-11-02] MEDS: AMLODIPINE 5 MG TAB PO SCH ×2 (09:00→20:12)
[2016-11-02] MEDS: ATENOLOL 50 MG TAB PO SCH ×2 (09:00→20:13)
[2016-11-02] MEDS: FUROSEMIDE 40 MG TAB PO SCH ×2 (09:00→20:13)
[2016-11-02] MEDS: BENAZEPRIL 40 MG TAB PO SCH (09:00)
--- NOTE | 2016-11-02 09:19 | CONS ---
Date/Time of Note Date/Time of Note DATE: 11/02/16 TIME: 09:17 Assessment/Plan Assessment/Plan Chief Complaint/Hosp Course 1. ESRD , she is scheduled for hemodialysis treatment today . she usually dialyses [facility] . 2. pleuritic chest pain , seems improved , will order some Motrin prn . 3. bronchitis, she is on steroids and cough and wheezing have improved , CXR done yesterday shows that CHF has resolved 4. DM 5. HTN Problems: Consultation Date/Type/Reason Admit Date/Time Oct 26, 2016 at 08:46 Type of Consultation: renal 24 HR Interval Summary Constitutional: improved, no complaints Exam/Review of Systems Vital Signs Vitals Vital Signs Date Time Temp Pulse Resp B/P Pulse Ox O2 Delivery O2 Flow Rate FiO2 11/02/16 07:53 98.4 65 18 115/58 93 11/01/16 16:39 21 10/30/16 08:00 Nasal Cannula 10/30/16 05:25 4.0 Intake and Output 11/01/16 11/01/16 11/02/16 15:00 23:00 07:00 Intake Total 250 ml 1120 ml 1100 ml Balance 250 ml 1120 ml 1100 ml Exam Constitutional: alert, oriented, well developed Psych: no complaints Respiratory: clear to auscultation, normal air movement Cardiovascular: regular rate and rhythm Musculoskeletal: nl extremities to inspection Results Result Diagram: 11/02/16 0812 11/02/16 0812 Results 24 hrs Laboratory Tests Test 11/01/16 12:24 11/01/16 17:01 11/01/16 20:47 11/02/16 02:27 Bedside Glucose 241 H 300 H 435 *H 148 Test 11/02/16 07:55 11/02/16 08:12 Bedside Glucose 150 Anion Gap 25 H Basophils # 0.0 Basophils % 0.2 Blood Urea Nitrogen 108 H Calcium Level 7.0 L Carbon Dioxide Level 21 Chloride Level 98 Creatinine 8.74 #H Eosinophils # 0.1 Eosinophils % 1.0 Glucose Level 136 # Hematocrit 33.3 L Hemoglobin 10.8 L Lymphocytes # 2.3 Lymphocytes % 18.1 Mean Corpuscular Hemoglobin 30.1 Mean Corpuscular Hemoglobin Concent 32.4 Mean Corpuscular Volume 92.8 Mean Platelet Volume 10.3 Monocytes # 0.5 Monocytes % 3.9 Neutrophils # 9.5 H Neutrophils % 75.8 Nucleated Red Blood Cells # 0.0 Nucleated Red Blood Cells % 0.0 Platelet Count 155 Potassium Level 4.0 Red Blood Count 3.59 L Red Cell Distribution Width 14.2 Sodium Level 140 White Blood Count 12.5 H Medications Medications Current Medications Ondansetron HCl (Zofran Inj) 4 mg Q6H PRN IV NAUSEA AND/OR VOMITING; Start at 10:30 Morphine Sulfate (morphine) 2 mg Q4H PRN IV SEVERE PAIN LEVEL 7-10; Start 10/26 at 10:30 Docusate Sodium (Colace) 100 mg Q12H PRN PO CONSTIPATION; Start 10/26/16 at 10: 30 Magnesium Hydroxide (Milk Of Mag) 30 ml Q24H PRN PO CONSTIPATION; Start at 10:30 Heparin Sodium (Porcine) (Heparin (5000 Units/0.5 ml)) 5,000 unit Q12 SC Last administered on 11/01/16 20:54; Admin Dose 5,000 UNIT; Start 10/26/16 at 21:00 Lorazepam (Ativan) 0.5 mg Q6H PRN IV ANXIETY Last administered on 10/26/16 12: 29; Admin Dose 0.5 MG; Start 10/26/16 at 10:30 Hydralazine HCl (Apresoline) 10 mg Q6H PRN IV ELEVATED BLOOD PRESSURE Last administered on 10/29/16 12:59; Admin Dose 10 MG; Start 10/26/16 at 10:30 Clonidine (Catapres) 0.1 mg Q6H PRN PO ELEVATED BLOOD PRESSURE Last administered on 10/29/16 16:00; Admin Dose 0.1 MG; Start 10/26/16 at 10:30 Nitroglycerin (Nitroglycerin (Sl Tab) 0.4 Mg) 1 tab Q5M PRN SL ANGINA; Start at 10:30 Amlodipine Besylate (Norvasc) 5 mg BID PO Last administered on 11/01/16 20:52 ; Admin Dose 5 MG; Start 10/26/16 at 21:00 Atenolol (Tenormin) 50 mg BID PO Last administered on 11/01/16 20:52; Admin Dose 50 MG; Start 10/26/16 at 21:00 Benazepril HCl (Lotensin) 40 mg DAILY PO Last administered on 10/31/16 09:04; Admin Dose 40 MG; Start 10/27/16 at 09:00 Furosemide (Lasix) 80 mg BID PO Last administered on 11/01/16 20:52; Admin Dose 80 MG; Start 10/26/16 at 21:00 Tramadol HCl (Ultram) 50 mg Q12H PRN PO PAIN Last administered on 11/01/16 08: 41; Admin Dose 50 MG; Start 10/26/16 at 10:30 Guaifenesin (Robitussin Liquid Cup) 200 mg Q4H PRN PO COUGH Last administered on 11/01/16 01:51; Admin Dose 200 MG; Start 10/28/16 at 12:30 Phenol (Cepastat Lozenge) 1 lozenge Q1H PRN MT COUGH Last administered on 09:11; Admin Dose 1 LOZENGE; Start 10/28/16 at 12:30 Zolpidem Tartrate (Ambien) 5 mg HS PRN PO INSOMNIA Last administered on 22:31; Admin Dose 5 MG; Start 10/28/16 at 19:30 Miscellaneous Information 1 ea NOTE XX ; Start 10/29/16 at 11:30 Glucose (Glutose) 15 gm Q15M PRN PO DECREASED GLUCOSE; Start 10/29/16 at 11:30 Glucose (Glutose) 22.5 gm Q15M PRN PO DECREASED GLUCOSE; Start 10/29/16 at 11: 30 Dextrose (D50w Syringe) 25 ml Q15M PRN IV DECREASED GLUCOSE; Start 10/29/16 at 11:30 Dextrose (D50w Syringe) 50 ml Q15M PRN IV DECREASED GLUCOSE; Start 10/29/16 at 11:30 Glucagon (Glucagen) 1 mg Q15M PRN IM DECREASED GLUCOSE; Start 10/29/16 at 11:30 Glucose 15 gm 15 gm Q15M PRN BUCCAL DECREASED GLUCOSE; Start 10/29/16 at 11:30 Azithromycin (Zithromax 500mg/ NS (Pmx)) 250 ml @ 250 mls/hr Q24H IVPB Last administered on 11/01/16 08:22; Admin Dose 250 MLS/HR; Start 10/30/16 at 09:00 Salmeterol Xinafoate/ Fluticasone (Advair 250/50 Diskus) 1 inh BID INH Last administered on 11/01/16 20:50; Admin Dose 1 INH; Start 10/29/16 at 16:00 Pantoprazole (Protonix Tab) 40 mg DAILY@06 PO Last administered on 11/02/16 06 :15; Admin Dose 40 MG; Start 10/30/16 at 06:00 Ibuprofen (Motrin) 400 mg Q6H PRN PO PAIN OR TEMP ABOVE 38C; Start 10/31/16 at 13:30 Calcitriol (Rocaltrol) 0.25 mcg DAILY PO Last administered on 11/01/16 08:21; Admin Dose 0.25 MCG; Start 10/31/16 at 14:30 Insulin Glargine (Lantus) 22 unit DAILY@20 SC Last administered on 11/01/16 20 :50; Admin Dose 22 UNIT; Start 10/31/16 at 20:00 Prednisone (Prednisone) 20 mg DAILY NGT Last administered on 11/01/16 12:29; Admin Dose 20 MG; Start 11/01/16 at 13:00 Diagnostic Test (Pha) (Accucheck) 1 ea 02 XX Last administered on 11/02/16 02: 31; Admin Dose 1 EA; Start 11/02/16 at 02:00 WILVER DAVIES MD Nov 02, 2016 09:19
[2016-11-02] MEDS: SALMETEROL/FLUTICASONE 250/50 INHA INH SCH ×2 (09:23→20:14)
[2016-11-02] MEDS: predniSONE 20 MG TAB NGT SCH (09:24)
[2016-11-02] MEDS: CALCIUM ACETATE 667 MG CAP PO SCH ×3 (09:24→18:22)
[2016-11-02] MEDS: CALCITRIOL 0.25 MCG CAP PO SCH (09:24)
[2016-11-02] MEDS: HEPARIN 5,000 UNIT/0.5 ML SYG SC SCH ×2 (09:28→20:14)
[2016-11-02] MEDS: INSULIN ASPART [NOVOLOG] 3 ML PEN SC SCH ×7 (09:29→20:06)
[2016-11-02] MEDS: AZITHROMYCIN 500MG/NS (PMX) 250 ML IVPB SCH (09:31)
[2016-11-02] MEDS: ALBUTEROL/IPRATROPIUM (NEB) 3 ML AMP HHN SCH ×4 (09:49→21:16)
[2016-11-02] MEDS: traMADol 50 MG TAB PO PRN (11:25)
--- NOTE | 2016-11-02 12:00 | CONS ---
Date/Time of Note Date/Time of Note DATE: 11/02/16 TIME: 11:58 Assessment/Plan Assessment/Plan Additional Assessment/Plan Assessment and recommendations; 1. Patient admitted with asthma exacerbation and acute bronchitis with marked clinical improvement. Started on prednisone 10 mg twice daily yesterday. 2. End-stage renal disease on hemodialysis. 3. History of hypertension and diabetes. Continue current treatment for now. Taper prednisone in 24 hours to 10 mg daily with further tapering down later as dictated by her clinical status. Consultation Date/Type/Reason Admit Date/Time Oct 26, 2016 at 08:46 Type of Consultation: Pulmonary 24 HR Interval Summary Free Text/Dictation Vision condition is significantly improved. Denies any coughing wheezing sputum production. Any chest pain, fever or chills. General examination; elderly lady, currently in no distress. Sitting in a chair by bedside. Exam/Review of Systems Vital Signs Vitals Vital Signs Date Time Temp Pulse Resp B/P Pulse Ox O2 Delivery O2 Flow Rate FiO2 11/02/16 09:49 66 22 95 21 11/02/16 07:53 98.4 115/58 10/30/16 08:00 Nasal Cannula 10/30/16 05:25 4.0 Intake and Output 11/01/16 11/01/16 11/02/16 15:00 23:00 07:00 Intake Total 250 ml 1120 ml 1100 ml Balance 250 ml 1120 ml 1100 ml Exam H EENT examination; supple neck, no JVD. No lymphadenopathy. No thyromegaly. No neck masses. Pharynx is clear. Chest examination; clear to auscultation bilaterally. No added sounds. S1-S2 audible, no murmurs. Regular rhythm. Abdomen examination; soft, nontender, nondistended. No organomegaly. Bowel sounds audible. Extremity examination; no peripheral edema. PAINTER AND DECORATOR examination; no focal deficit. Results Result Diagram: 11/02/16 0812 11/02/16 0812 Results 24 hrs Laboratory Tests Test 11/01/16 12:24 11/01/16 17:01 11/01/16 20:47 11/02/16 02:27 Bedside Glucose 241 H 300 H 435 *H 148 Test 11/02/16 07:55 11/02/16 08:12 11/02/16 11:16 Bedside Glucose 150 192 Anion Gap 25 H Basophils # 0.0 Basophils % 0.2 Blood Urea Nitrogen 108 H Calcium Level 7.0 L Carbon Dioxide Level 21 Chloride Level 98 Creatinine 8.74 #H Eosinophils # 0.1 Eosinophils % 1.0 Glucose Level 136 # Hematocrit 33.3 L Hemoglobin 10.8 L Lymphocytes # 2.3 Lymphocytes % 18.1 Mean Corpuscular Hemoglobin 30.1 Mean Corpuscular Hemoglobin Concent 32.4 Mean Corpuscular Volume 92.8 Mean Platelet Volume 10.3 Monocytes # 0.5 Monocytes % 3.9 Neutrophils # 9.5 H Neutrophils % 75.8 Nucleated Red Blood Cells # 0.0 Nucleated Red Blood Cells % 0.0 Platelet Count 155 Potassium Level 4.0 Red Blood Count 3.59 L Red Cell Distribution Width 14.2 Sodium Level 140 White Blood Count 12.5 H Medications Medications Current Medications Ondansetron HCl (Zofran Inj) 4 mg Q6H PRN IV NAUSEA AND/OR VOMITING; Start at 10:30 Morphine Sulfate (morphine) 2 mg Q4H PRN IV SEVERE PAIN LEVEL 7-10; Start 10/26 at 10:30 Docusate Sodium (Colace) 100 mg Q12H PRN PO CONSTIPATION; Start 10/26/16 at 10: 30 Magnesium Hydroxide (Milk Of Mag) 30 ml Q24H PRN PO CONSTIPATION; Start at 10:30 Heparin Sodium (Porcine) (Heparin (5000 Units/0.5 ml)) 5,000 unit Q12 SC Last administered on 11/02/16 09:28; Admin Dose 5,000 UNIT; Start 10/26/16 at 21:00 Lorazepam (Ativan) 0.5 mg Q6H PRN IV ANXIETY Last administered on 10/26/16 12: 29; Admin Dose 0.5 MG; Start 10/26/16 at 10:30 Hydralazine HCl (Apresoline) 10 mg Q6H PRN IV ELEVATED BLOOD PRESSURE Last administered on 10/29/16 12:59; Admin Dose 10 MG; Start 10/26/16 at 10:30 Clonidine (Catapres) 0.1 mg Q6H PRN PO ELEVATED BLOOD PRESSURE Last administered on 10/29/16 16:00; Admin Dose 0.1 MG; Start 10/26/16 at 10:30 Nitroglycerin (Nitroglycerin (Sl Tab) 0.4 Mg) 1 tab Q5M PRN SL ANGINA; Start at 10:30 Amlodipine Besylate (Norvasc) 5 mg BID PO Last administered on 11/01/16 20:52 ; Admin Dose 5 MG; Start 10/26/16 at 21:00 Atenolol (Tenormin) 50 mg BID PO Last administered on 11/01/16 20:52; Admin Dose 50 MG; Start 10/26/16 at 21:00 Benazepril HCl (Lotensin) 40 mg DAILY PO Last administered on 10/31/16 09:04; Admin Dose 40 MG; Start 10/27/16 at 09:00 Furosemide (Lasix) 80 mg BID PO Last administered on 11/01/16 20:52; Admin Dose 80 MG; Start 10/26/16 at 21:00 Tramadol HCl (Ultram) 50 mg Q12H PRN PO PAIN Last administered on 11/02/16 11: 25; Admin Dose 50 MG; Start 10/26/16 at 10:30 Guaifenesin (Robitussin Liquid Cup) 200 mg Q4H PRN PO COUGH Last administered on 11/01/16 01:51; Admin Dose 200 MG; Start 10/28/16 at 12:30 Phenol (Cepastat Lozenge) 1 lozenge Q1H PRN MT COUGH Last administered on 09:11; Admin Dose 1 LOZENGE; Start 10/28/16 at 12:30 Zolpidem Tartrate (Ambien) 5 mg HS PRN PO INSOMNIA Last administered on 22:31; Admin Dose 5 MG; Start 10/28/16 at 19:30 Miscellaneous Information 1 ea NOTE XX ; Start 10/29/16 at 11:30 Glucose (Glutose) 15 gm Q15M PRN PO DECREASED GLUCOSE; Start 10/29/16 at 11:30 Glucose (Glutose) 22.5 gm Q15M PRN PO DECREASED GLUCOSE; Start 10/29/16 at 11: 30 Dextrose (D50w Syringe) 25 ml Q15M PRN IV DECREASED GLUCOSE; Start 10/29/16 at 11:30 Dextrose (D50w Syringe) 50 ml Q15M PRN IV DECREASED GLUCOSE; Start 10/29/16 at 11:30 Glucagon (Glucagen) 1 mg Q15M PRN IM DECREASED GLUCOSE; Start 10/29/16 at 11:30 Glucose 15 gm 15 gm Q15M PRN BUCCAL DECREASED GLUCOSE; Start 10/29/16 at 11:30 Azithromycin (Zithromax 500mg/ NS (Pmx)) 250 ml @ 250 mls/hr Q24H IVPB Last administered on 11/02/16 09:31; Admin Dose 250 MLS/HR; Start 10/30/16 at 09:00 Salmeterol Xinafoate/ Fluticasone (Advair 250/50 Diskus) 1 inh BID INH Last administered on 11/02/16 09:23; Admin Dose 1 INH; Start 10/29/16 at 16:00 Pantoprazole (Protonix Tab) 40 mg DAILY@06 PO Last administered on 11/02/16 06 :15; Admin Dose 40 MG; Start 10/30/16 at 06:00 Ibuprofen (Motrin) 400 mg Q6H PRN PO PAIN OR TEMP ABOVE 38C; Start 10/31/16 at 13:30 Calcitriol (Rocaltrol) 0.25 mcg DAILY PO Last administered on 11/02/16 09:24; Admin Dose 0.25 MCG; Start 10/31/16 at 14:30 Insulin Glargine (Lantus) 22 unit DAILY@20 SC Last administered on 11/01/16 20 :50; Admin Dose 22 UNIT; Start 10/31/16 at 20:00 Prednisone (Prednisone) 20 mg DAILY NGT Last administered on 11/02/16 09:24; Admin Dose 20 MG; Start 11/01/16 at 13:00 Diagnostic Test (Pha) (Accucheck) 1 ea 02 XX Last administered on 11/02/16 02: 31; Admin Dose 1 EA; Start 11/02/16 at 02:00 EVANGELIST NUGENT Nov 02, 2016 12:00
--- NOTE | 2016-11-02 16:13 | PN ---
Date/Time of Note Date/Time of Note DATE: 11/02/16 TIME: 16:10 Assessment/Plan VTE Prophylaxis VTE Prophylaxis Intervention: heparin Lines/Catheters IV C[facility]ter Type [facility]from [facility] Urinary Cath still in place: No Assessment/Plan Assessment/Plan 1. Asthma exacerbation with acute bronchitis/pneumonia, improving, on zithromax , add prednisone 11/01/2016, follow up with pulmonology 2. Diarrhea, stool for C. Diff 3. Hypoxic / Hypercapnic respiratory failure : resolved on room air 4. Essential hypertension. controlled. 5. End-stage renal disease on hemodialysis. HD per nephrology 6. Type 2 diabetes - increase insulins 9. DVT prophylaxis: heparin 10. Diarrhea, follow up with C. Diff Subjective 24 Hr Interval Summary Free Text/Dictation diarrhea, sent stool for C. Diff Exam/Review of Systems Vital Signs Vitals Vital Signs Date Time Temp Pulse Resp B/P Pulse Ox O2 Delivery O2 Flow Rate FiO2 11/02/16 13:23 68 20 95 21 11/02/16 07:53 98.4 115/58 10/30/16 08:00 Nasal Cannula 10/30/16 05:25 4.0 Intake and Output 11/01/16 11/01/16 11/02/16 15:00 23:00 07:00 Intake Total 250 ml 1120 ml 1100 ml Balance 250 ml 1120 ml 1100 ml Exam Constitutional: alert, oriented, well developed Psych: nl mood/affect, no complaints Head: atraumatic, normocephalic Eyes: EOMI, nl conjunctiva, nl lids ENMT: nl external ears & nose, nl lips & teeth, nl nasal mucosa & septum Neck: non-tender, supple Respiratory: clear to auscultation, normal air movement, No congested cough, No crackles/rales, No diminished breath sounds, No intercostal retraction, No labored breathing, No other, No respirations, No tactile fremitus, No wheezing Cardiovascular: nl pulses, regular rate and rhythm, No S3, No S4, No bruits, No diastolic murmur, No edema, No gallop, No irregular rhythm, No jugular venous distention (JVD), No murmurs/extra sounds, No other, No rub, No systolic murmur Gastrointestinal: nl liver, spleen, non-tender, soft, No ascites, No bowel sounds, No distended, No firm, No hepatomegaly, No mass , No other, No rebound or guarding, No splenomegaly, No surgical scars, No tender Musculoskeletal: nl extremities to inspection Neurological: BANKING OFFICER II-XII intact, nl mental status, nl speech, nl strength Skin: nl turgor Results Result Diagram: 11/02/16 0812 11/02/16 0812 Results 24 hrs Laboratory Tests Test 11/01/16 17:01 11/01/16 20:47 11/02/16 02:27 11/02/16 07:55 Bedside Glucose 300 H 435 *H 148 150 Test 11/02/16 08:12 11/02/16 11:16 Anion Gap 25 H Basophils # 0.0 Basophils % 0.2 Blood Urea Nitrogen 108 H Calcium Level 7.0 L Carbon Dioxide Level 21 Chloride Level 98 Creatinine 8.74 #H Eosinophils # 0.1 Eosinophils % 1.0 Glucose Level 136 # Hematocrit 33.3 L Hemoglobin 10.8 L Lymphocytes # 2.3 Lymphocytes % 18.1 Mean Corpuscular Hemoglobin 30.1 Mean Corpuscular Hemoglobin Concent 32.4 Mean Corpuscular Volume 92.8 Mean Platelet Volume 10.3 Monocytes # 0.5 Monocytes % 3.9 Neutrophils # 9.5 H Neutrophils % 75.8 Nucleated Red Blood Cells # 0.0 Nucleated Red Blood Cells % 0.0 Platelet Count 155 Potassium Level 4.0 Red Blood Count 3.59 L Red Cell Distribution Width 14.2 Sodium Level 140 White Blood Count 12.5 H Bedside Glucose 192 Medications Medications Current Medications Ondansetron HCl (Zofran Inj) 4 mg Q6H PRN IV NAUSEA AND/OR VOMITING; Start at 10:30 Morphine Sulfate (morphine) 2 mg Q4H PRN IV SEVERE PAIN LEVEL 7-10; Start 10/26 at 10:30 Docusate Sodium (Colace) 100 mg Q12H PRN PO CONSTIPATION; Start 10/26/16 at 10: 30 Magnesium Hydroxide (Milk Of Mag) 30 ml Q24H PRN PO CONSTIPATION; Start at 10:30 Heparin Sodium (Porcine) (Heparin (5000 Units/0.5 ml)) 5,000 unit Q12 SC Last administered on 11/02/16t 09:28; Admin Dose 5,000 UNIT; Start 10/26/16 at 21:00 Lorazepam (Ativan) 0.5 mg Q6H PRN IV ANXIETY Last administered on 10/26/16 12: 29; Admin Dose 0.5 MG; Start 10/26/16 at 10:30 Hydralazine HCl (Apresoline) 10 mg Q6H PRN IV ELEVATED BLOOD PRESSURE Last administered on 10/29/16 12:59; Admin Dose 10 MG; Start 10/26/16 at 10:30 Clonidine (Catapres) 0.1 mg Q6H PRN PO ELEVATED BLOOD PRESSURE Last administered on 10/29/16 16:00; Admin Dose 0.1 MG; Start 10/26/16 at 10:30 Nitroglycerin (Nitroglycerin (Sl Tab) 0.4 Mg) 1 tab Q5M PRN SL ANGINA; Start at 10:30 Amlodipine Besylate (Norvasc) 5 mg BID PO Last administered on 11/01/16 20:52 ; Admin Dose 5 MG; Start 10/26/16 at 21:00 Atenolol (Tenormin) 50 mg BID PO Last administered on 11/01/16 20:52; Admin Dose 50 MG; Start 10/26/16 at 21:00 Benazepril HCl (Lotensin) 40 mg DAILY PO Last administered on 10/31/16 09:04; Admin Dose 40 MG; Start 10/27/16 at 09:00 Furosemide (Lasix) 80 mg BID PO Last administered on 11/01/16 20:52; Admin Dose 80 MG; Start 10/26/16 at 21:00 Tramadol HCl (Ultram) 50 mg Q12H PRN PO PAIN Last administered on 11/02/16 11: 25; Admin Dose 50 MG; Start 10/26/16 at 10:30 Guaifenesin (Robitussin Liquid Cup) 200 mg Q4H PRN PO COUGH Last administered on 11/01/16 01:51; Admin Dose 200 MG; Start 10/28/16 at 12:30 Phenol (Cepastat Lozenge) 1 lozenge Q1H PRN MT COUGH Last administered on 09:11; Admin Dose 1 LOZENGE; Start 10/28/16 at 12:30 Zolpidem Tartrate (Ambien) 5 mg HS PRN PO INSOMNIA Last administered on 22:31; Admin Dose 5 MG; Start 10/28/16 at 19:30 Miscellaneous Information 1 ea NOTE XX ; Start 10/29/16 at 11:30 Glucose (Glutose) 15 gm Q15M PRN PO DECREASED GLUCOSE; Start 10/29/16 at 11:30 Glucose (Glutose) 22.5 gm Q15M PRN PO DECREASED GLUCOSE; Start 10/29/16 at 11: 30 Dextrose (D50w Syringe) 25 ml Q15M PRN IV DECREASED GLUCOSE; Start 10/29/16 at 11:30 Dextrose (D50w Syringe) 50 ml Q15M PRN IV DECREASED GLUCOSE; Start 10/29/16 at 11:30 Glucagon (Glucagen) 1 mg Q15M PRN IM DECREASED GLUCOSE; Start 10/29/16 at 11:30 Glucose 15 gm 15 gm Q15M PRN BUCCAL DECREASED GLUCOSE; Start 10/29/16 at 11:30 Azithromycin (Zithromax 500mg/ NS (Pmx)) 250 ml @ 250 mls/hr Q24H IVPB Last administered on 11/02/16 09:31; Admin Dose 250 MLS/HR; Start 10/30/16 at 09:00 Salmeterol Xinafoate/ Fluticasone (Advair 250/50 Diskus) 1 inh BID INH Last administered on 11/02/16 09:23; Admin Dose 1 INH; Start 10/29/16 at 16:00 Pantoprazole (Protonix Tab) 40 mg DAILY@06 PO Last administered on 11/02/16 06 :15; Admin Dose 40 MG; Start 10/30/16 at 06:00 Ibuprofen (Motrin) 400 mg Q6H PRN PO PAIN OR TEMP ABOVE 38C; Start 10/31/16 at 13:30 Calcitriol (Rocaltrol) 0.25 mcg DAILY PO Last administered on 11/02/16 09:24; Admin Dose 0.25 MCG; Start 10/31/16 at 14:30 Insulin Glargine (Lantus) 22 unit DAILY@20 SC Last administered on 11/01/16 20 :50; Admin Dose 22 UNIT; Start 10/31/16 at 20:00 Diagnostic Test (Pha) (Accucheck) 1 ea 02 XX Last administered on 2/24/17at 02: 31; Admin Dose 1 EA; Start 11/02/16 at 02:00 Prednisone (Prednisone) 5 mg TID PO ; Start 11/03/16 at 09:00 TABITHA COATES MD Nov 02, 2016 16:13
[2016-11-02] MEDS: INSULIN GLARGINE [LANtus] 3 ML PEN SC SCH (20:04)
[2016-11-02] MEDS: GUAIFENESIN 20 MG/ML 5ML CUP PO PRN (20:11)
--- NOTE | 2016-11-02 21:33 | CONS ---
Date/Time of Note Date/Time of Note DATE: 11/02/16 TIME: 21:30 Assessment/Plan Assessment/Plan Additional Assessment/Plan Pt dislysed without problem today, will continue Rx per pulmonary Consultation Date/Type/Reason Admit Date/Time Oct 26, 2016 at 08:46 Initial Consult Date Type of Consultation: renal 24 HR Interval Summary Free Text/Dictation Obese F, lying in bed Exam/Review of Systems Vital Signs Vitals Vital Signs Date Time Temp Pulse Resp B/P Pulse Ox O2 Delivery O2 Flow Rate FiO2 11/02/16 21:16 73 18 94 21 11/02/16 20:02 98.0 143/63 10/30/16 08:00 Nasal Cannula 10/30/16 05:25 4.0 Intake and Output 11/01/16 11/01/16 11/02/16 15:00 23:00 07:00 Intake Total 250 ml 1120 ml 1100 ml Balance 250 ml 1120 ml 1100 ml Exam Obese, speaks no Hungarian Psych: nl mood/affect, no complaints Head: atraumatic, normocephalic Eyes: EOMI, PERRL, nl conjunctiva, nl lids, nl sclera ENMT: nl external ears & nose, nl lips & teeth, nl nasal mucosa & septum Neck: non-tender, supple Respiratory: clear to auscultation, normal air movement Cardiovascular: nl pulses, regular rate and rhythm Gastrointestinal: nl liver, spleen, non-tender, soft Musculoskeletal: nl extremities to inspection, nl gait and stance Extremities: normal pulses, other (Lt arm avf bruit+) 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, nl mental status, nl speech, nl strength Skin: nl turgor, No rash or lesions Results Result Diagram: 11/02/1612 11/02/16 0812 Results 24 hrs Laboratory Tests Test 11/02/16 02:27 11/02/16 07:55 11/02/16 08:12 11/02/16 11:16 Bedside Glucose 148 150 192 Anion Gap 25 H Basophils # 0.0 Basophils % 0.2 Blood Urea Nitrogen 108 H Calcium Level 7.0 L Carbon Dioxide Level 21 Chloride Level 98 Creatinine 8.74 #H Eosinophils # 0.1 Eosinophils % 1.0 Glucose Level 136 # Hematocrit 33.3 L Hemoglobin 10.8 L Lymphocytes # 2.3 Lymphocytes % 18.1 Mean Corpuscular Hemoglobin 30.1 Mean Corpuscular Hemoglobin Concent 32.4 Mean Corpuscular Volume 92.8 Mean Platelet Volume 10.3 Monocytes # 0.5 Monocytes % 3.9 Neutrophils # 9.5 H Neutrophils % 75.8 Nucleated Red Blood Cells # 0.0 Nucleated Red Blood Cells % 0.0 Platelet Count 155 Potassium Level 4.0 Red Blood Count 3.59 L Red Cell Distribution Width 14.2 Sodium Level 140 White Blood Count 12.5 H Test 11/02/16 16:13 11/02/16 19:56 Bedside Glucose 184 318 H Medications Medications Current Medications Ondansetron HCl (Zofran Inj) 4 mg Q6H PRN IV NAUSEA AND/OR VOMITING; Start at 10:30 Morphine Sulfate (morphine) 2 mg Q4H PRN IV SEVERE PAIN LEVEL 7-10; Start 10/26 at 10:30 Docusate Sodium (Colace) 100 mg Q12H PRN PO CONSTIPATION; Start 10/26/16 at 10: 30 Magnesium Hydroxide (Milk Of Mag) 30 ml Q24H PRN PO CONSTIPATION; Start at 10:30 Heparin Sodium (Porcine) (Heparin (5000 Units/0.5 ml)) 5,000 unit Q12 SC Last administered on 11/02/16 20:14; Admin Dose 5,000 UNIT; Start 10/26/16 at 21:00 Lorazepam (Ativan) 0.5 mg Q6H PRN IV ANXIETY Last administered on 10/26/16 12: 29; Admin Dose 0.5 MG; Start 10/26/16 at 10:30 Hydralazine HCl (Apresoline) 10 mg Q6H PRN IV ELEVATED BLOOD PRESSURE Last administered on 10/29/16 12:59; Admin Dose 10 MG; Start 10/26/16 at 10:30 Clonidine (Catapres) 0.1 mg Q6H PRN PO ELEVATED BLOOD PRESSURE Last administered on 10/29/16 16:00; Admin Dose 0.1 MG; Start 10/26/16 at 10:30 Nitroglycerin (Nitroglycerin (Sl Tab) 0.4 Mg) 1 tab Q5M PRN SL ANGINA; Start at 10:30 Amlodipine Besylate (Norvasc) 5 mg BID PO Last administered on 11/02/16 20:12 ; Admin Dose 5 MG; Start 10/26/16 at 21:00 Atenolol (Tenormin) 50 mg BID PO Last administered on 11/02/16 20:13; Admin Dose 50 MG; Start 10/26/16 at 21:00 Benazepril HCl (Lotensin) 40 mg DAILY PO Last administered on 10/31/16 09:04; Admin Dose 40 MG; Start 10/27/16 at 09:00 Furosemide (Lasix) 80 mg BID PO Last administered on 11/02/16 20:13; Admin Dose 80 MG; Start 10/26/16 at 21:00 Tramadol HCl (Ultram) 50 mg Q12H PRN PO PAIN Last administered on 11/02/16 11: 25; Admin Dose 50 MG; Start 10/26/16 at 10:30 Guaifenesin (Robitussin Liquid Cup) 200 mg Q4H PRN PO COUGH Last administered on 11/02/16 20:11; Admin Dose 200 MG; Start 10/28/16 at 12:30 Phenol (Cepastat Lozenge) 1 lozenge Q1H PRN MT COUGH Last administered on 09:11; Admin Dose 1 LOZENGE; Start 10/28/16 at 12:30 Zolpidem Tartrate (Ambien) 5 mg HS PRN PO INSOMNIA Last administered on 22:31; Admin Dose 5 MG; Start 10/28/16 at 19:30 Miscellaneous Information 1 ea NOTE XX ; Start 10/29/16 at 11:30 Glucose (Glutose) 15 gm Q15M PRN PO DECREASED GLUCOSE; Start 10/29/16 at 11:30 Glucose (Glutose) 22.5 gm Q15M PRN PO DECREASED GLUCOSE; Start 10/29/16 at 11: 30 Dextrose (D50w Syringe) 25 ml Q15M PRN IV DECREASED GLUCOSE; Start 10/29/16 at 11:30 Dextrose (D50w Syringe) 50 ml Q15M PRN IV DECREASED GLUCOSE; Start 10/29/16 at 11:30 Glucagon (Glucagen) 1 mg Q15M PRN IM DECREASED GLUCOSE; Start 10/29/16 at 11:30 Glucose 15 gm 15 gm Q15M PRN BUCCAL DECREASED GLUCOSE; Start 10/29/16 at 11:30 Azithromycin (Zithromax 500mg/ NS (Pmx)) 250 ml @ 250 mls/hr Q24H IVPB Last administered on 11/02/16 09:31; Admin Dose 250 MLS/HR; Start 10/30/16 at 09:00 Salmeterol Xinafoate/ Fluticasone (Advair 250/50 Diskus) 1 inh BID INH Last administered on 11/02/16 20:14; Admin Dose 1 INH; Start 10/29/16 at 16:00 Pantoprazole (Protonix Tab) 40 mg DAILY@06 PO Last administered on 11/02/16 06 :15; Admin Dose 40 MG; Start 10/30/16 at 06:00 Ibuprofen (Motrin) 400 mg Q6H PRN PO PAIN OR TEMP ABOVE 38C; Start 10/31/16 at 13:30 Calcitriol (Rocaltrol) 0.25 mcg DAILY PO Last administered on 11/02/16 09:24; Admin Dose 0.25 MCG; Start 10/31/16 at 14:30 Insulin Glargine (Lantus) 22 unit DAILY@20 SC Last administered on 11/02/16 20 :04; Admin Dose 22 UNIT; Start 10/31/16 at 20:00 Diagnostic Test (Pha) (Accucheck) 1 ea 02 XX Last administered on 11/02/16 02: 31; Admin Dose 1 EA; Start 11/02/16 at 02:00 Prednisone (Prednisone) 5 mg TID PO ; Start 11/03/16 at 09:00 SYLVIA ABEBE MD Nov 02, 2016 21:33
[2016-11-03] MEDS: ACCUCHECK XX SCH (02:04)
[2016-11-03] MEDS: PANTOPRAZOLE (EC) 40 MG TAB PO SCH (06:23)
[2016-11-03 07:28] VITALS: BP 119/63; RESP 16
--- NOTE | 2016-11-03 08:49 | CONS ---
Date/Time of Note Date/Time of Note DATE: 11/03/16 TIME: 08:46 Assessment/Plan Assessment/Plan Problems: (1) ESRD (end stage renal disease) on dialysis Comment: cont q MWF (2) HTN (hypertension) Comment: controlled on current regimen (3) Bronchitis Comment: improved... cl lungs, last CXR (-) (4) Cough Comment: get stronger cough med Consultation Date/Type/Reason Admit Date/Time Oct 26, 2016 at 08:46 Initial Consult Date Type of Consultation: renal 24 HR Interval Summary Free Text/Dictation up and about, but says cough continues... keeps her up at night Exam/Review of Systems Vital Signs Vitals Vital Signs Date Time Temp Pulse Resp B/P Pulse Ox O2 Delivery O2 Flow Rate FiO2 11/03/16 07:28 98.9 61 16 119/63 92 11/02/16 21:16 21 10/30/16 08:00 Nasal Cannula Intake and Output 11/02/16 11/02/16 11/03/16 15:00 23:00 07:00 Intake Total 250 ml 1200 ml 950 ml Output Total 3000 ml Balance 250 ml -1800 ml 950 ml Exam Constitutional: alert, oriented Head: normocephalic Respiratory: clear to auscultation Cardiovascular: regular rate and rhythm Extremities: normal pulses Results Result Diagram: 11/02/16 0812 11/02/16 0812 Results 24 hrs Laboratory Tests Test 11/02/16 11:16 11/02/16 16:13 11/02/16 19:56 11/03/16 02:02 Bedside Glucose 192 184 318 H 301 H Test 11/03/16 07:39 Bedside Glucose 195 Medications Medications Current Medications Ondansetron HCl (Zofran Inj) 4 mg Q6H PRN IV NAUSEA AND/OR VOMITING; Start at 10:30 Morphine Sulfate (morphine) 2 mg Q4H PRN IV SEVERE PAIN LEVEL 7-10; Start 10/26 at 10:30 Docusate Sodium (Colace) 100 mg Q12H PRN PO CONSTIPATION; Start 10/26/16 at 10: 30 Magnesium Hydroxide (Milk Of Mag) 30 ml Q24H PRN PO CONSTIPATION; Start at 10:30 Heparin Sodium (Porcine) (Heparin (5000 Units/0.5 ml)) 5,000 unit Q12 SC Last administered on 11/02/16 20:14; Admin Dose 5,000 UNIT; Start 10/26/16 at 21:00 Lorazepam (Ativan) 0.5 mg Q6H PRN IV ANXIETY Last administered on 10/26/16 12: 29; Admin Dose 0.5 MG; Start 10/26/16 at 10:30 Hydralazine HCl (Apresoline) 10 mg Q6H PRN IV ELEVATED BLOOD PRESSURE Last administered on 10/29/16 12:59; Admin Dose 10 MG; Start 10/26/16 at 10:30 Clonidine (Catapres) 0.1 mg Q6H PRN PO ELEVATED BLOOD PRESSURE Last administered on 10/29/16 16:00; Admin Dose 0.1 MG; Start 10/26/16 at 10:30 Nitroglycerin (Nitroglycerin (Sl Tab) 0.4 Mg) 1 tab Q5M PRN SL ANGINA; Start at 10:30 Amlodipine Besylate (Norvasc) 5 mg BID PO Last administered on 11/02/16 20:12 ; Admin Dose 5 MG; Start 10/26/16 at 21:00 Atenolol (Tenormin) 50 mg BID PO Last administered on 11/02/16 20:13; Admin Dose 50 MG; Start 10/26/16 at 21:00 Benazepril HCl (Lotensin) 40 mg DAILY PO Last administered on 10/31/16 09:04; Admin Dose 40 MG; Start 10/27/16 at 09:00 Furosemide (Lasix) 80 mg BID PO Last administered on 11/02/16 20:13; Admin Dose 80 MG; Start 10/26/16 at 21:00 Tramadol HCl (Ultram) 50 mg Q12H PRN PO PAIN Last administered on 11/02/16 11: 25; Admin Dose 50 MG; Start 10/26/16 at 10:30 Guaifenesin (Robitussin Liquid Cup) 200 mg Q4H PRN PO COUGH Last administered on 11/02/16 20:11; Admin Dose 200 MG; Start 10/28/16 at 12:30 Phenol (Cepastat Lozenge) 1 lozenge Q1H PRN MT COUGH Last administered on 09:11; Admin Dose 1 LOZENGE; Start 10/28/16 at 12:30 Zolpidem Tartrate (Ambien) 5 mg HS PRN PO INSOMNIA Last administered on 22:31; Admin Dose 5 MG; Start 10/28/16 at 19:30 Miscellaneous Information 1 ea NOTE XX ; Start 10/29/16 at 11:30 Glucose (Glutose) 15 gm Q15M PRN PO DECREASED GLUCOSE; Start 10/29/16 at 11:30 Glucose (Glutose) 22.5 gm Q15M PRN PO DECREASED GLUCOSE; Start 10/29/16 at 11: 30 Dextrose (D50w Syringe) 25 ml Q15M PRN IV DECREASED GLUCOSE; Start 10/29/16 at 11:30 Dextrose (D50w Syringe) 50 ml Q15M PRN IV DECREASED GLUCOSE; Start 10/29/16 at 11:30 Glucagon (Glucagen) 1 mg Q15M PRN IM DECREASED GLUCOSE; Start 10/29/16 at 11:30 Glucose 15 gm 15 gm Q15M PRN BUCCAL DECREASED GLUCOSE; Start 10/29/16 at 11:30 Azithromycin (Zithromax 500mg/ NS (Pmx)) 250 ml @ 250 mls/hr Q24H IVPB Last administered on 11/02/16 09:31; Admin Dose 250 MLS/HR; Start 10/30/16 at 09:00 Salmeterol Xinafoate/ Fluticasone (Advair 250/50 Diskus) 1 inh BID INH Last administered on 11/02/16 20:14; Admin Dose 1 INH; Start 10/29/16 at 16:00 Pantoprazole (Protonix Tab) 40 mg DAILY@06 PO Last administered on 11/03/16 06 :23; Admin Dose 40 MG; Start 10/30/16 at 06:00 Ibuprofen (Motrin) 400 mg Q6H PRN PO PAIN OR TEMP ABOVE 38C; Start 10/31/16 at 13:30 Calcitriol (Rocaltrol) 0.25 mcg DAILY PO Last administered on 11/02/16 09:24; Admin Dose 0.25 MCG; Start 10/31/16 at 14:30 Insulin Glargine (Lantus) 22 unit DAILY@20 SC Last administered on 2/24/17at 20 :04; Admin Dose 22 UNIT; Start 10/31/16 at 20:00 Diagnostic Test (Pha) (Accucheck) 1 ea 02 XX Last administered on 11/03/16 02: 04; Admin Dose 1 EA; Start 11/02/16 at 02:00 Prednisone (Prednisone) 5 mg TID PO ; Start 11/03/16 at 09:00 DAYANA WINN MD Nov 03, 2016 08:49
[2016-11-03] MEDS: BENAZEPRIL 40 MG TAB PO SCH (08:52)
[2016-11-03] MEDS: ATENOLOL 50 MG TAB PO SCH (08:53)
[2016-11-03] MEDS: FUROSEMIDE 40 MG TAB PO SCH (08:54)
[2016-11-03] MEDS: CALCIUM ACETATE 667 MG CAP PO SCH ×3 (08:54→17:53)
[2016-11-03] MEDS: predniSONE 5 MG TAB PO SCH ×2 (08:54→12:42)
[2016-11-03] MEDS: HEPARIN 5,000 UNIT/0.5 ML SYG SC SCH (08:56)
[2016-11-03] MEDS: INSULIN ASPART [NOVOLOG] 3 ML PEN SC SCH ×6 (08:57→17:43)
[2016-11-03] MEDS: SALMETEROL/FLUTICASONE 250/50 INHA INH SCH (08:59)
[2016-11-03] MEDS ORDERED: PROMETHAZINE/CODEINE 5ML CUP PO PRN (09:00)
[2016-11-03] MEDS: CALCITRIOL 0.25 MCG CAP PO SCH (09:06)
[2016-11-03] MEDS: AZITHROMYCIN 500MG/NS (PMX) 250 ML IVPB SCH (09:06)
[2016-11-03] MEDS: ALBUTEROL/IPRATROPIUM (NEB) 3 ML AMP HHN SCH ×3 (09:18→16:45)
[2016-11-03] MEDS ORDERED: LACTOBACILLUS CHEW TAB PO SCH (11:00)
[2016-11-03] MEDS ORDERED: POTASSIUM IODIDE 20 DROPS/ML 30 ML BTL PO SCH (12:00)
[2016-11-03] MEDS: AMLODIPINE 5 MG TAB PO SCH (12:43)
[2016-11-03] MEDS ORDERED: ACID1TAB14 PO (14:07)
[2016-11-03] MEDS ORDERED: NOVO3I SC (14:07)
[2016-11-03] MEDS ORDERED: BENZ1LOZ4 MT (14:07)
[2016-11-03] MEDS ORDERED: CALC0.2511 PO (14:07)
[2016-11-03] MEDS ORDERED: IPRA4AER INHALATION (14:07)
[2016-11-03] MEDS ORDERED: HYDR-3671 PO (14:07)
[2016-11-03] MEDS ORDERED: LANT3I SC (14:07)
[2016-11-03] MEDS ORDERED: ADV25050 INH (14:07)
[2016-11-03] MEDS ORDERED: PANT40TA4 PO (14:07)
[2016-11-03] MEDS ORDERED: CARV12.579 PO (14:07)
[2016-11-03] MEDS ORDERED: CALC667C PO (14:07)
[2016-11-03] MEDS ORDERED: PRED5 PO (14:07)
[2016-11-03] MEDS ORDERED: AMLO5TAB4 PO (14:07)
[2016-11-03] MEDS: POTASSIUM IODIDE 20 DROPS/ML 30 ML BTL PO SCH ×2 (14:53→17:48)
--- NOTE | 2016-11-03 15:40 | PDOCDIS ---
Discharge Instructions DIAGNOSIS Discharge Diagnosis: CHF exacerbation CONDITION Patient Condition: Stable HOME CARE INSTRUCTIONS: Special Diet: 1800 nan ada diet ACTIVITY: Activity Restrictions: Slowly Increase Activity Rest between Activity FOLLOW UP/APPOINTMENTS Appointments Followup with your primary doctor within the next 1-2 weeks. If you don't have one please let someone know, we can give you resources that may help you pick one. You may also call your insurance company to assign one to you. Review your medication list with your nurse before leaving and if you need new prescriptions please let your nurse know. I may have made changes to your home medications or given you new prescriptions , please let your primary doctor know as well. Stay compliant with your medications and report any side effects to your PCP or pharmacist. Return to the ER if you have any concerns and cannot reach your doctors or call your insurance company, they usually have a nurse that can help you. LEEANNE CHERRY. Nov 03, 2016 15:40
[2016-11-03] MEDS ORDERED: GABA300C PO (15:41)
[2016-11-03] MEDS ORDERED: PANTOPRAZOLE (EC) 40 MG TAB PO SCH (18:00)
--- NOTE | 2016-11-03 18:36 | CONS ---
Date/Time of Note Date/Time of Note DATE: 11/03/16 TIME: 18:33 Assessment/Plan Assessment/Plan Additional Assessment/Plan Trial of KIodide for expectoration Will rpt BMP in AM Consultation Date/Type/Reason Admit Date/Time Oct 26, 2016 at 08:46 Type of Consultation: renal 24 HR Interval Summary Free Text/Dictation cough still present Constitutional: improved Exam/Review of Systems Vital Signs Vitals Vital Signs Date Time Temp Pulse Resp B/P Pulse Ox O2 Delivery O2 Flow Rate FiO2 11/03/16 16:45 69 18 95 21 11/03/16 07:28 98.9 119/63 10/30/16 08:00 Nasal Cannula Intake and Output 11/02/16 11/02/16 11/03/16 15:00 23:00 07:00 Intake Total 250 ml 1200 ml 950 ml Output Total 3000 ml Balance 250 ml -1800 ml 950 ml Exam Constitutional: alert, oriented, well developed Psych: nl mood/affect, no complaints Head: atraumatic, normocephalic Eyes: EOMI, PERRL, nl conjunctiva, nl lids, nl sclera ENMT: nl external ears & nose, nl lips & teeth, nl nasal mucosa & septum Neck: non-tender, supple Respiratory: clear to auscultation, normal air movement Cardiovascular: nl pulses, other (obese), regular rate and rhythm Gastrointestinal: nl liver, spleen, non-tender, soft Musculoskeletal: nl extremities to inspection, nl gait and stance Extremities: normal pulses 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, nl mental status, nl speech, nl strength Skin: nl turgor, No rash or lesions Lymph: nl lymph nodes Results Pt had HD yesterday Result Diagram: 11/02/16 0812 11/02/16 0812 Results 24 hrs Laboratory Tests Test 11/02/16 19:56 11/03/16 02:02 11/03/16 07:39 11/03/16 09:06 Bedside Glucose 318 H 301 H 195 Lab Scanned Report REFERENCE LAB Test 11/03/16 12:02 11/03/16 16:20 11/03/16 17:36 Bedside Glucose 199 143 Urine Random Sodium 47 Medications Medications Current Medications Ondansetron HCl (Zofran Inj) 4 mg Q6H PRN IV NAUSEA AND/OR VOMITING; Start at 10:30 Morphine Sulfate (morphine) 2 mg Q4H PRN IV SEVERE PAIN LEVEL 7-10; Start 10/26 at 10:30 Docusate Sodium (Colace) 100 mg Q12H PRN PO CONSTIPATION; Start 10/26/16 at 10: 30 Magnesium Hydroxide (Milk Of Mag) 30 ml Q24H PRN PO CONSTIPATION; Start at 10:30 Heparin Sodium (Porcine) (Heparin (5000 Units/0.5 ml)) 5,000 unit Q12 SC Last administered on 11/03/16 08:56; Admin Dose 5,000 UNIT; Start 10/26/16 at 21:00 Lorazepam (Ativan) 0.5 mg Q6H PRN IV ANXIETY Last administered on 10/26/16 12: 29; Admin Dose 0.5 MG; Start 10/26/16 at 10:30 Hydralazine HCl (Apresoline) 10 mg Q6H PRN IV ELEVATED BLOOD PRESSURE Last administered on 10/29/16 12:59; Admin Dose 10 MG; Start 10/26/16 at 10:30 Clonidine (Catapres) 0.1 mg Q6H PRN PO ELEVATED BLOOD PRESSURE Last administered on 10/29/16 16:00; Admin Dose 0.1 MG; Start 10/26/16 at 10:30 Nitroglycerin (Nitroglycerin (Sl Tab) 0.4 Mg) 1 tab Q5M PRN SL ANGINA; Start at 10:30 Amlodipine Besylate (Norvasc) 5 mg BID PO Last administered on 11/03/16 12:43 ; Admin Dose 5 MG; Start 10/26/16 at 21:00 Furosemide (Lasix) 80 mg BID PO Last administered on 11/03/16 08:54; Admin Dose 80 MG; Start 10/26/16 at 21:00 Tramadol HCl (Ultram) 50 mg Q12H PRN PO PAIN Last administered on 11/02/16 11: 25; Admin Dose 50 MG; Start 10/26/16 at 10:30 Guaifenesin (Robitussin Liquid Cup) 200 mg Q4H PRN PO COUGH Last administered on 11/02/16 20:11; Admin Dose 200 MG; Start 10/28/16 at 12:30 Phenol (Cepastat Lozenge) 1 lozenge Q1H PRN MT COUGH Last administered on 09:11; Admin Dose 1 LOZENGE; Start 10/28/16 at 12:30 Zolpidem Tartrate (Ambien) 5 mg HS PRN PO INSOMNIA Last administered on 22:31; Admin Dose 5 MG; Start 10/28/16 at 19:30 Miscellaneous Information 1 ea NOTE XX ; Start 10/29/16 at 11:30 Glucose (Glutose) 15 gm Q15M PRN PO DECREASED GLUCOSE; Start 10/29/16 at 11:30 Glucose (Glutose) 22.5 gm Q15M PRN PO DECREASED GLUCOSE; Start 10/29/16 at 11: 30 Dextrose (D50w Syringe) 25 ml Q15M PRN IV DECREASED GLUCOSE; Start 10/29/16 at 11:30 Dextrose (D50w Syringe) 50 ml Q15M PRN IV DECREASED GLUCOSE; Start 10/29/16 at 11:30 Glucagon (Glucagen) 1 mg Q15M PRN IM DECREASED GLUCOSE; Start 10/29/16 at 11:30 Glucose 15 gm 15 gm Q15M PRN BUCCAL DECREASED GLUCOSE; Start 10/29/16 at 11:30 Azithromycin (Zithromax 500mg/ NS (Pmx)) 250 ml @ 250 mls/hr Q24H IVPB Last administered on 11/03/16 09:06; Admin Dose 250 MLS/HR; Start 10/30/16 at 09:00 Salmeterol Xinafoate/ Fluticasone (Advair 250/50 Diskus) 1 inh BID INH Last administered on 11/03/16 08:59; Admin Dose 1 INH; Start 10/29/16 at 16:00 Ibuprofen (Motrin) 400 mg Q6H PRN PO PAIN OR TEMP ABOVE 38C Last administered on 11/03/16 08:52; Admin Dose 400 MG; Start 10/31/16 at 13:30 Calcitriol (Rocaltrol) 0.25 mcg DAILY PO Last administered on 11/03/16 09:06; Admin Dose 0.25 MCG; Start 10/31/16 at 14:30 Diagnostic Test (Pha) (Accucheck) 1 ea 02 XX Last administered on 11/03/16 02: 04; Admin Dose 1 EA; Start 11/02/16 at 02:00 Prednisone (Prednisone) 5 mg TID PO Last administered on 11/03/16 12:42; Admin Dose 5 MG; Start 11/03/16 at 09:00 Promethazine HCl/ Codeine (Phenergan/ Codeine) 10 ml Q4H PRN PO COUGH; Start at 09:00 Losartan Potassium (Cozaar) 50 mg DAILY PO ; Start 11/04/16 at 09:00 Insulin Glargine (Lantus) 25 unit DAILY@20 SC ; Start 11/03/16 at 20:00 Carvedilol (Coreg) 12.5 mg BID PO ; Start 11/03/16 at 21:00 Hydralazine HCl (Apresoline) 25 mg Q8 PO Last administered on 11/03/16 14:58; Admin Dose 25 MG; Start 11/03/16 at 14:00 Pantoprazole (Protonix Tab) 40 mg BID@06,18 PO Last administered on 11/03/16 17:48; Admin Dose 40 MG; Start 11/03/16 at 18:00 Lactobacillus Acidoph/Bulgaricus (Floranex) 1 tab BID PO Last administered on 12:42; Admin Dose 1 TAB; Start 11/03/16 at 11:00 Potassium Iodide (Sski) 5 drop TID@12,17,21 PO Last administered on 11/03/16 17:48; Admin Dose 5 DROP; Start 11/03/16 at 12:00; Stop 11/03/16 at 21:01 SYLVIA ABEBE MD Nov 03, 2016 18:36
[2016-11-03] MEDS ORDERED: INSULIN GLARGINE [LANtus] 3 ML PEN SC SCH (20:00)
[2016-11-04] MEDS ORDERED: LOSARTAN 50 MG TAB PO SCH (09:00)
--- NOTE | 2016-11-24 14:15 | DS ---
DATE OF ADMISSION: 10/26/2016 DATE OF DISCHARGE: 11/03/2016 FINAL DIAGNOSES: 1. Asthma exacerbation with acute bronchitis and pneumonia, improving. 2. Diarrhea, resolved. 3. Hypoxic hypercapnic respiratory failure, resolved. 4. Hypertension, controlled. 5. End-stage renal disease on hemodialysis, stable. 6. Type 2 diabetes, improved control. CONSULTS ON THE CASE: Dr. Tj Hartman as well as Dr. Washington Lopez for nephrology. INTERVENTIONS: Multiple chest x-rays, the last of which was done on 10/30/2016, showed no acute inf iltrates, mild cardiomegaly and aortic atherosclerosis. A 2D echocardiogram done 10/26/2016 showed mild concentric left ventricular hypertrophy, EF of 65%, mild aortic stenosis, estimated peak PA sys tolic pressure of 37. HOSPITAL COURSE: Full details are available in chart for review. In summary, this is a 61-year-old female who had presented with shortness of breath, was found to have pulmonary infiltrates and she was with a slight hypercapnic respiratory failure. She was initially managed with BiPAP therapy and underwent aggressive dialysis in house. She did very well and at the time of discharge, she was st ill on room air. The patient had a prolonged persistent cough and paroxysmal nocturnal dyspnea, whi ch prolonged the hospitalization in house, but eventually she was stabilized and discharged home for outpatient followup. FINAL MEDICATIONS: As follows: 1. Combivent inhalation q.4. 2. Calcitriol 0.25 mcg daily. 3. Calcium acetate 667 mg with meals. 4. Coreg 12.5 b.i.d. 5. Neurontin 300 b.i.d. 6. Hydralazine 25 p.o. q8. 7. NovoLog 9 units subcutaneous with meals. 8. Lantus 25 units subcutaneous daily. 9. Floranex 1 tab b.i.d. 10. Protonix 40 b.i.d. 11. Prednisone 10 mg daily for 5 days. 12. Advair 250/50. 13. She was also put on lozenges as needed. 14. Lasix 80 mg b.i.d. 15. Losartan 50 daily. 16. Tramadol 50 b.i.d. p.r.n. 17. Amlodipine 5 mg daily instead of b.i.d. DISPOSITION: To home. ACTIVITIES: As tolerated. DIET: Recommended diet is an 1800 calorie ADA/renal. FOLLOWUP: Follow up with primary care physician within 1 to 2 weeks and as routinely prescribed for hemodialysis. Dictated By: LEEANNE CHERRY MD BA/DENISE Conf#: [id number] DID#: [id number]
== END 2016-11-03 19:30 | disposition home or self-care (01) | DRG 189 ==
LOC: E/R 07:02 → TEL 08:46 → PP2 10-29 20:01
PROVIDERS: ADMIT Internal Medicine; ATTEND Internal Medicine
PROC: 5A09357 Assistance with Respiratory Ventilation, Less than 24 Consecutive Hours, Continuous Positive Airway Pressure (ICD-10-PCS; principal; 2016-10-26)
PROC: 5A1D60Z (ICD-10-PCS; 2016-10-28)
DX: J96.91 Respiratory failure, unspecified with hypoxia (principal); I13.2 Hypertensive heart and chronic kidney disease with heart failure and with stage 5 chronic kidney disease, or end stage renal disease; J18.9 Pneumonia, unspecified organism; N18.6 End stage renal disease; E87.2 Acidosis; E11.22 Type 2 diabetes mellitus with diabetic chronic kidney disease; J45.901 Unspecified asthma with (acute) exacerbation; E11.42 Type 2 diabetes mellitus with diabetic polyneuropathy; J20.9 Acute bronchitis, unspecified; J96.92 Respiratory failure, unspecified with hypercapnia; I50.9 Heart failure, unspecified; M54.31 Sciatica, right side; R19.7 Diarrhea, unspecified; Z99.2 Dependence on renal dialysis; Z88.6 Allergy status to analgesic agent; Z86.73 Personal history of transient ischemic attack (TIA), and cerebral infarction without residual deficits; Z79.4 Long term (current) use of insulin
CPT/HCPCS: 36415; 36600; 71010; 80048; 80053; 80061; 80202; 82803; 82947; 82962; 83036; 83605; 83735; 83935; 84100; 84300; 84439; 84443; 84484; 85025; 85610; 85730; 87040; 87075; 90686; 90935; 92526; 92610; 93005; 93306; 94640; 94660; 94664; 96365; 96367; 96375; 97162; 97166; C9113; J0360; J0456; J0610; J1815; J1956; J2060; J2543; J2920; J3370; J7050; J7512; P9047